=== PATIENT | male | born 1960 | race Caucasian/White ===

== ENCOUNTER 2021-07-10 08:48 | Emergency (ER) | payer MEDICARE, SELFPAY ==
[2021-07-10] VITALS (8 sets, daily range): BP systolic 132–195; BP diastolic 89–100; PULSE 79–123; RESP 16–20; TEMP 36.6–36.9; O2SAT 94–98; BMI 25.8; BMI 26.6
--- NOTE | 2021-07-10 | ECG_ITS ---
APPROVED REPORT Exam: Resting ECG HR:105 bpm ECG Measurements Heart Rate 105 AXES UT 142 P 78 QRSd 74 QRS 67 QT 332 T 56 QTc 438 Conclusion Sinus tachycardia Otherwise normal ECG Electronically signed by : Vance Briones MD 07/11/2021 17:29:12
--- NOTE | 2021-07-10 08:50 | PC.NURSE ---
blood sugar 237
--- NOTE | 2021-07-10 08:55 | PC.NURSE ---
to ct per stretcher
--- NOTE | 2021-07-10 08:55 | XR_ITS ---
PROCEDURE: XR CHEST PORTABLE CLINICAL HISTORY: weakness COMPARISON: No exams were available for comparison FINDINGS: The cardiomediastinal silhouette and pulmonary vascularity are within normal limits. Hyperinflation suggesting small airway disease/COPD. No consolidation or nodules apparent. No acute bony abnormalities. IMPRESSION: Hyperinflation suggesting COPD or small airway disease otherwise negative Dictated by: Sergio Diaz MD 07/10/2021 11:53 Sergio Diaz MD in [facility] 07/10/2021 11:53
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
--- NOTE | 2021-07-10 08:55 | HMH.EDGENADL ---
ED Disposition Clinical Impression: TIA (transient ischemic attack) Hypertension Qualifiers: Hypertension type: unspecified Qualified Code(s): I10 - Essential (primary) hypertension Disposition: Home, Self-Care Condition on Discharge: Fair Additional Instructions: See Dr. Ray for Dr. Lake in their office tomorrow, , or Friday. Follow-up with Dr. Ortiz, neurologist, call for appointment. Take aspirin 81 mg daily. Take lisinopril 10 mg daily for blood pressure as prescribed. Return to the emergency department if symptoms of numbness return or if new symptoms such as weakness, visual changes, difficulty speaking, severe dizziness. Prescriptions: lisinopriL [Lisinopril] 10 mg PO DAILY #30 tab Prescription Printed Referrals: Terence Ray MD [Staff Physician] - Carol Ortiz MD [Staff Physician] - - Critical Care Critical Care Time: No Attestation: On , the high probability of a clinically significant, sudden or life threatening deterioration of the following system(s) required my full and direct attention, intervention and personal management. The time I documented below is in addition to time spent performing reported procedures but includes the following listed in this critical care notation. Medical Decision Making - Bernardo Inquiry Pt receiving controlled substance: Yes Bernardo was queried for this patient: Yes Risks and benefits of using a controlled substance: were not discussed with pt by me Vital Signs: 07/10/21 08:52 07/10/21 10:56 07/10/21 11:33 Temperature 98.5 F Temperature Source Oral Pulse Rate 82 81 Pulse Rate [Radial] 123 H Respiratory Rate 18 16 20 Blood Pressure 156/99 H 152/97 H Blood Pressure [Right Arm] 195/97 H Blood Pressure Mean [Right Arm] 129 Blood Pressure Source Automatic Cuff Blood Pressure Position Sitting Blood Pressure Position [Right Arm] Sitting 02 Sat by Pulse Oximetry 98 95 95 Oxygen Delivery Method Room Air Room Air Room Air - Lab Data Lab Results 07/10/21 08:53: WBC 9.4, RBC 4.92, Hgb 15.2, Hct 47.2, MCV 95.8 H, MCH 30.9, MCHC 32.3, RDW 13.0, Plt Count 239, MPV 8.5, Neut % (Auto) 64.4, Lymph % (Auto) 27.7, Jennings % (Auto) 4.1, Eos % (Auto) 3.2, Baso % (Auto) 0.6, Neut # (Auto) 6.0, Lymph # (Auto) 2.6, Jennings # (Auto) 0.4, Eos # (Auto) 0.3, Baso # (Auto) 0.1 07/10/21 08:53: Sodium 135 L, Potassium 3.9, Chloride 96 L, Carbon Dioxide 29, Anion Gap 13.9, BUN 19, Creatinine 1.10, Estimated Creat Clear 77, Estimated GFR 68, Est GFR ( Amer) 82, Glucose 151 H, Calcium 9.9, Total Bilirubin 0.6, AST 23, ALT 12, Alkaline Phosphatase 90, Troponin I < 0.01, Total Protein 8.4 H, Albumin 4.6, Globulin 3.8 H, Albumin/Globulin Ratio 1.2 07/10/21 08:53: PT 11.3, INR 1.00 07/10/21 11:54: Troponin I < 0.01 07/10/21 11:55: Urine Opiates Screen Negative, Urine Methadone Screen Negative, Ur Barbituates Screen Negative, Ur Phencyclidine Scrn Negative, Ur Amphetamines Screen Negative, U Benzodiazepines Scrn Negative, Urine Cocaine Screen Negative, U Marijuana (THC) Screen Positive H Result diagrams: 07/10/21 08:53 07/10/21 08:53 Orders (Tests/Meds): ED MEDICATIONS Generic Name Dose Route Start Last Admin Trade Name Freq PRN Reason Stop Dose Admin Sodium Chloride 10 ml 07/10/21 09:50 Sodium Chloride 0.9% 10ml Vial IV 08/09/21 09:49 NEEDED PRN to Dilute Lorazepam inj Discontinued Medications Generic Name Dose Route Start Last Admin Trade Name Freq PRN Reason Stop Dose Admin Aspirin 324 mg 07/10/21 11:59 07/10/21 12:08 Aspirin 81mg Chewable Tablet PO 07/10/21 12:00 324 mg ONCE ONE Administration Iopamidol 90 ml 07/10/21 10:16 07/10/21 10:17 Iopamidol-370 (76%);100ml Bottle IV 07/10/21 10:17 90 ml ONCE ONE Administration Lisinopril 10 mg 07/10/21 12:19 07/10/21 12:26 Lisinopril 10mg Tablet PO 07/10/21 12:20 10 mg ONCE ONE Administration Lorazepam 1 mg 07/10/21 09:50 07/10/21 0
[2021-07-10 09:03] LABS: Basophils # 0.1 K/mm3 (0-0.2); Basophils % 0.6 % (0.1-2.0); Eosinophils # 0.3 K/mm3 (0.0-0.4); Eosinophils % 3.2 % (0.1-12.0); Hematocrit 47.2 % (42.0-52.0); Hemoglobin 15.2 g/dL (14.1-18.0); Lymphocytes # 2.6 K/mm3 (0.7-4.5); Lymphocytes % 27.7 % (10-50); Mean Corpuscular HGB Conc 32.3 g/dL (31.8-35.4); Mean Corpuscular Hemoglobin 30.9 pg (27.0-31.2); Mean Corpuscular Volume 95.8 fl (80-94); Mean Platelet Volume 8.5 fl (7.4-10.4); Monocytes # 0.4 K/mm3 (0.1-1.0); Monocytes % 4.1 % (1.7-9.3); Neutrophils % 64.4 % (37.0-80.0); Platelet Count 239 K/mm3 (142-424); Red Blood Count 4.92 M/mm3 (4.60-6.20); White Blood Count 9.4 K/mm3 (4.8-10.8)
[2021-07-10 09:11] LABS: Chloride 96 mmol/L (98-107); Sodium 135 mmol/L (136-145)
[2021-07-10 09:12] LABS: Potassium 3.9 mmoL/L (3.5-5.1)
[2021-07-10 09:14] LABS: Alanine Aminotransferase 12 U/L (12-78); Alkaline Phosphatase 90 U/L (38-126); Anion Gap 13.9 mEq/L (5-15); Aspartate Amino Transferase 23 U/L (17-59); Bilirubin,Total 0.6 mg/dl (0.2-1.3); Blood Urea Nitrogen 19 mg/dl (9-20); Carbon Dioxide 29 mmol/L (22.0-30.0); Creatinine Clearance Estimated 77 mL/min (50-200); Estimated Glomerular Filt Rate 68 ml/min (>60); GFR (African American) 82 ML/MIN (>60); Prothrombin Time 11.3 seconds (10.1-12.5)
[2021-07-10 09:15] LABS: Albumin Level 4.6 g/dl (3.5-5.0); Albumin/Globulin Ratio 1.2 (1.1-1.8); Calcium 9.9 mg/dl (8.4-10.2); Globulin 3.8 g/dL (1.3-3.2); Glucose 151 mg/dl (74-100); Total Protein,Serum 8.4 g/dl (6.3-8.2)
--- NOTE | 2021-07-10 09:21 | CT_ITS ---
PROCEDURE INFORMATION: Exam: CT Angiography Head Without And With Contrast, Arteriography Exam date and time: 07/10/2021 9:21 AM Age: 61 years old Clinical indication: Pain; Other: RT side numbness; Additional info: Right sided numbness TECHNIQUE: Imaging protocol: Computed tomographic angiography of the head without and with contrast. Exam focused on the arteries. 3D rendering (Not supervised by radiologist): MIP and/or 3D reconstructed images were created by the technologist. Radiation optimization: All CT scans at this facility use at least one of these dose optimization techniques: automated exposure control; mA and/or kV adjustment per patient size (includes targeted exams where dose is matched to clinical indication); or iterative reconstruction. Contrast material: ISOVUE 370; Contrast volume: 100 ml; Contrast route: INTRAVENOUS (IV); COMPARISON: CT HEAD/BRAIN WO CON 07/10/2021 8:56 AM FINDINGS: ANTERIOR CIRCULATION: Right internal carotid artery: Intracranial segment is patent with no occlusion. There is likely mild to moderate stenosis of the right cavernous carotid. No aneurysm. Right middle cerebral artery: No occlusion or significant stenosis. No aneurysm. Right anterior cerebral artery: No occlusion or significant stenosis. No aneurysm. Left internal carotid artery: Intracranial segment is patent with no occlusion. There is likely mild to moderate stenosis of the left cavernous carotid. No aneurysm. Left middle cerebral artery: No occlusion or significant stenosis. No aneurysm. Left anterior cerebral artery: No occlusion or significant stenosis. No aneurysm. POSTERIOR CIRCULATION: Right vertebral artery: No occlusion or significant stenosis. No aneurysm. 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 Basilar artery: No occlusion or significant stenosis. No aneurysm. Right posterior cerebral artery: No occlusion or significant stenosis. No aneurysm. Left posterior cerebral artery: No occlusion or significant stenosis. No aneurysm. HEAD: Brain: Unremarkable. No acute intracranial hemorrhage. No significant white matter disease. No edema. Cerebral ventricles: Normal. No ventriculomegaly. Bones/joints: Prior left parietal craniotomy. Paranasal sinuses: Visualized sinuses are normal. No fluid levels. Mastoid air cells: Visualized mastoids are normal. No mastoid effusion. Soft tissues: Unremarkable. IMPRESSION: 1. 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 2. No occlusion or aneurysm involving the anterior circulation
--- NOTE | 2021-07-10 09:21 | CT_ITS ---
PROCEDURE INFORMATION: Exam: CT Angiography Neck With Contrast Exam date and time: 07/10/2021 9:21 AM Age: 61 years old Clinical indication: Pain; Other: RT side numbness; Additional info: Right sided numbness TECHNIQUE: Imaging protocol: Computed tomography angiography of the neck with contrast. 3D rendering (Not supervised by radiologist): MIP and/or 3D reconstructed images were created by the technologist. Radiation optimization: All CT scans at this facility use at least one of these dose optimization techniques: automated exposure control; mA and/or kV adjustment per patient size (includes targeted exams where dose is matched to clinical indication); or iterative reconstruction. Contrast material: ISOVUE 370; Contrast volume: 100 ml; Contrast route: INTRAVENOUS (IV); COMPARISON: CT HEAD/BRAIN WO CON 07/10/2021 8:56 AM FINDINGS: Right common carotid artery: No stenosis. No dissection or occlusion. Right internal carotid artery: No stenosis of the extracranial segment. No dissection or occlusion. Right external carotid artery: No occlusion or stenosis of the origin. Left common carotid artery: No stenosis. No dissection or occlusion. Left internal carotid artery: There is approximately 50% narrowing of the proximal left internal carotid artery. Left external carotid artery: No occlusion or stenosis of the origin. Right vertebral artery: No stenosis. No dissection or occlusion. 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 Left subclavian artery: Mild to moderate narrowing of the proximal left subclavian artery due to calcified and noncalcified atherosclerotic plaque. Soft tissues: Normal. No significant soft tissue swelling. Bones/joints: No acute fracture. Lungs: Moderate centrilobular emphysema in the lungs. IMPRESSION: 1. Moderate stenosis of the proximal left internal carotid artery of approximately 50%. 2. 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 3. Mild to moderate narrowing of the proximal left subclavian artery. REFERENCES: NASCET CRITERIA. The degree of internal carotid artery stenosis is based on NASCET criteria. Normal is no stenosis. Mild is less than 50% stenosis. Moderate is 50-69% stenosis. Severe is 70% to 99% stenosis. Total occlusion is no detectable patent lumen.
[2021-07-10 09:27] LABS: Troponin I < 0.01 ng/ml (0.00-0.034)
--- NOTE | 2021-07-10 09:43 | PC.NURSE ---
pt to ct
[2021-07-10 12:19] LABS: Amphetamine/Metha Screen,Urine Negative ng/ml (<1000); Benzodiazepines Screen,Urine Negative ng/ml (<200)
[2021-07-10 12:20] LABS: Barbiturates Screen,Urine Negative ng/ml (<200); Cannabinoid Screen,Urine Positive ng/ml (<50)
[2021-07-10 12:21] LABS: Cocaine Screen,Urine Negative ng/ml (<300)
[2021-07-10 12:22] LABS: Methadone Screen,Urine Negative ng/ml (<300); Opiate Screen,Urine Negative ng/ml (<300)
[2021-07-10 12:23] LABS: Phencyclidine Screen,Urine Negative ng/ml (<25)
--- NOTE | 2021-07-10 12:28 | PC.NURSE ---
spoke with Dr. Ray
[2021-07-10 12:32] LABS: Troponin I < 0.01 ng/ml (0.00-0.034)
== END 2021-07-10 12:59 | disposition home or self-care (01) ==
PROVIDERS: Emergency Provider Emergency Medicine
DX: G45.8 Other transient cerebral ischemic attacks and related syndromes (principal); I10 Essential (primary) hypertension; F12.10 Cannabis abuse, uncomplicated
CPT/HCPCS: 36415; 70450; 70496; 70498; 71045; 80053; 80305; 84484; 85025; 85610; 93005; 96374; 96375; 99283; J2405; Q9967

== ENCOUNTER 2023-06-03 21:43 | Inpatient (IN) | payer MEDICARE, SELFPAY ==
[2023-06-03 21:47] VITALS: BP 149/88; PULSE 131; RESP 24; TEMP 37.6; O2SAT 95; BMI 26.6
--- NOTE | 2023-06-03 22:02 | XR_ITS ---
PROCEDURE INFORMATION: Exam: XR Chest Exam date and time: 06/03/2023 10:07 PM Age: 63 years old Clinical indication: Cough and shortness of breath; Additional info: SOA, cough TECHNIQUE: Imaging protocol: Radiologic exam of the chest. Views: 1 view. COMPARISON: CR XR CHEST PORTABLE 07/10/2021 9:06 AM FINDINGS: Lungs: Hyperinflation compatible with COPD. Possible subtle asymmetric mixed interstitial and hazy airspace opacities in the lateral right mid lung. Lungs otherwise clear. Pleural spaces: Unremarkable. No pleural effusion. No pneumothorax. Heart/Mediastinum: Unremarkable. No cardiomegaly. Bones/joints: Unremarkable. IMPRESSION: COPD. Possible developing opacities in the lateral right mid lung that may reflect developing pneumonia in the proper clinical setting. Advise short-term follow-up chest x-ray in 3-6 weeks to ensure resolution of this finding.
--- NOTE | 2023-06-03 22:11 | PC.NURSE ---
called resp for breathing tx
[2023-06-03 22:14] LABS: Chloride 90 mmol/L (98-107); Potassium 3.7 mmoL/L (3.5-5.1); Sodium 132 mmol/L (136-145)
[2023-06-03 22:16] LABS: Blood Urea Nitrogen 32 mg/dl (9-20); Creatinine Clearance Estimated 82 mL/min (50-200); Estimated Glomerular Filt Rate 85 ml/min (>60); GFR (African American) 103 ML/MIN (>60)
[2023-06-03 22:17] LABS: Alanine Aminotransferase 34 U/L (12-78); Albumin Level 3.8 g/dl (3.5-5.0); Albumin/Globulin Ratio 1.1 (1.1-1.8); Alkaline Phosphatase 77 U/L (38-126); Anion Gap 12.7 mEq/L (5-15); Aspartate Amino Transferase 33 U/L (17-59); Bilirubin,Total 0.5 mg/dl (0.2-1.3); Carbon Dioxide 33 mmol/L (22.0-30.0); Globulin 3.5 g/dL (1.3-3.2); Glucose 149 mg/dl (74-100); Total Protein,Serum 7.3 g/dl (6.3-8.2)
[2023-06-03 22:41] LABS: Basophils # 0.1 K/mm3 (0-0.2); Basophils % 0.7 % (0.1-2.0); Eosinophils % 0.3 % (0.1-12.0); Hematocrit 42.9 % (42.0-52.0); Hemoglobin 13.7 g/dL (14.1-18.0); Lymphocytes # 0.9 K/mm3 (0.7-4.5); Lymphocytes % 10.5 % (10-50); Mean Corpuscular Hemoglobin 29.6 pg (27.0-31.2); Mean Corpuscular Volume 92.4 fl (80-94); Monocytes % 11.8 % (1.7-9.3); Neutrophils # 6.8 K/mm3 (1.8-7.8); Neutrophils % 76.8 % (37.0-80.0); Platelet Count 284 K/mm3 (142-424); Red Blood Count 4.64 M/mm3 (4.60-6.20); Red Cell Distribution Width 12.6 % (11.5-17.5); White Blood Count 8.9 K/mm3 (4.8-10.8)
[2023-06-03 22:49] LABS: VBG Base Excess 4.5 mmol/L (-2.4-2.3); VBG HCO3 30.5 mmol/L (23-30); VBG Oxygen Saturation 63.6 % (50-70); VBG PCO2 59.3 mmol/L (35-51); VBG PH 7.33 mmol/L (7.31-7.41); VBG PO2 35.2 mmol/L (28-40); VBG Total CO2 32.3 mmol/L (23-27)
--- NOTE | 2023-06-03 23:10 | HMH.EDGENADL ---
Discharge Plan Disposition Patient Disposition: Admitted Condition: Good Clinical Impressions Clinical Impression: Pneumonia, COPD exacerbation Discharge ED Provider: Lidia Delvalle General Adult HPI General Chief complaint: Shortness of Breath/Dyspnea Stated complaint: nausea Time Seen by Provider: 06/03/23 21:54 Mode of Arrival: EMS Source of Information: Patient Limitations: No Limitations Description of Symptoms (Recalled from ER Triage Doc. by RN): 63 yo presents with CC soa accompanied by cough,congestion since last friday. Complains of chills, nausea. No current CP. Slightly dyspneic. Asking for xanax upon arrival, told EMS pilot captain that he had already taken 2 xanax today. History of Present Illness HPI narrative: This patient is a 63-year-old male with a history of TIA, hypertension, and COPD who lives at home with his brother presenting to the emergency department for evaluation of several days of cough, congestion, and shortness of breath. Patient also notes recent break-up with emotional disturbance, for which she is requesting Xanax. His brother at home reports that he has had several days of cough and congestion and that he has not been very well. He has not been eating or drinking much, so he is concerned that he is very dehydrated. EMS noted respiratory distress when they picked up the patient and gave him DuoNeb. They also placed him on nasal cannula for symptomatic improvement. He is on 4 L nasal cannula upon arrival. Patient denies any concerns or complaints otherwise. Related Data Previous Rx's Medication Instructions Recorded lisinopril 10 mg tablet 10 mg PO DAILY #30 tabs 07/10/21 Allergies Allergy/AdvReac Type Severity Reaction Status Date / Time No Known Allergies Allergy Verified 11/05/21 14:15 [facility] Disclaimer: The information contained in this section may have been updated after the patient was seen, as this information can be updated by other users. Social History Smoking Status: Current every day smoker alcohol intake: former substance use type: marijuana current occupational status: disabled Travel in the last 8 weeks: None household members: family housing: house ROS Obtained: Yes All systems reviewed & no additional complaints except as documented Physical Exam General General appearance: alert and cachectic Comment: Thin, frail, chronically ill-appearing Head Head exam: atraumatic and normocephalic Eye Eye exam: Present normal appearance, PERRL and EOMI ENT ENT exam: Present normal exam, normal oropharynx, mucous membranes dry and normal external ear exam Neck Neck exam: Present normal inspection, full ROM and trachea midline; Absent tenderness Chest Chest inspection: Present normal inspection and symmetric chest wall rise; Absent tenderness Respiratory Respiratory exam: Present normal lung sounds bilaterally, wheezes, accessory muscle use and prolonged expiratory phase; Absent respiratory distress or stridor Cardiovascular Cardiovascular exam: Present normal rhythm and tachycardia Abdominal Exam Abdominal exam: Present soft; Absent distention, tenderness or guarding Extremities Exam Extremities exam: Present normal inspection, full ROM and normal capillary refill; Absent tenderness or edema Back Exam Back exam: Present normal inspection and full ROM; Absent tenderness Neurological Exam Neurological exam: Present alert, oriented X3, CN II-XII intact and normal gait; Absent motor sensory deficit Psychiatric Psychiatric exam: Present normal affect and normal mood Skin Skin exam: Present warm and dry Medical Decision Making Medical Records Medical records reviewed: Yes I reviewed the patient's medical records. Bernardo Inquiry Pt receiving controlled substance: No Vital Signs: 06/03/23 21:47 06/04/23 00:04 Temperature 99.7 F H 98.0 F Temperature Source Oral Pulse Rate 71 Pulse Rate [Right Brachial] 131 H Respiratory Rate 24 21
--- NOTE | 2023-06-03 23:18 | PC.NURSE ---
Patient is unset that he has not been admitted yet. Patient is also upset that we are not giving him Xanax. I explained to the patient our current treatment plan.
--- NOTE | 2023-06-03 23:34 | PC.NURSE ---
rounded on pt, no needs at this time.
--- NOTE | 2023-06-03 23:48 | PC.NURSE ---
unable to give report at this time.
--- NOTE | 2023-06-03 23:55 | EXP.HP ---
History of Present Illness *Admission Date: 06/03/23 *Reason for visit:: SOB *History of present illness: This is a 63-year-old male with PMHx of TIA, hypertension, and COPD who lives at home with his brother presenting to the emergency department for evaluation of several days of cough, congestion, and shortness of breath. History is limitted due to patient poor historian and speaking in sentences. History obtained per ED documentation and from his brother who reported that he has had several days of cough and congestion and that he has not been very well. He has not been eating or drinking much, so he is concerned that he is very dehydrated. EMS noted respiratory distress during transportation and gave him DuoNeb also placed him on nasal cannula for improvement. He was on 4 L nasal cannula upon arrival. Admitted for treatment. [facility] Disclaimer: The information contained in this section may have been updated after the patient was seen, as this information can be updated by other users. Medical History (Updated 06/04/23 @ 02:04 by Ramo Atkins APRN) Subdural hematoma Surgical History (Updated 06/04/23 @ 01:07 by Florence Sharp RN) H/O hemorrhoidectomy Hx of brain surgery Social History (Updated 06/04/23 @ 01:07 by Florence Sharp RN) Smoking Status: Current every day smoker alcohol intake: former substance use type: marijuana current occupational status: disabled Travel in the last 8 weeks: None household members: family housing: house Review of Systems Review of Systems Review of systems:: pertinent systems reviewed and negative unless documented below Meds Home Medications and Allergies Home Medications Medication Instructions Recorded Confirmed Type lisinopril 10 mg tablet 10 mg PO DAILY blood pressure 06/04/23 06/04/23 History New Prescriptions to Start Prescriptions: Allergies Allergy/AdvReac Type Severity Reaction Status Date / Time No Known Allergies Allergy Verified 11/05/21 14:15 Exam Data for Last 24 hours Vital signs and Labs for Last 24 Hours: Temp Pulse Resp BP Pulse Ox O2 Del Method 99.7 F H 131 H 24 149/88 H 95 Room Air 06/03/23 21:47 06/03/23 21:47 06/03/23 21:47 06/03/23 21:47 06/03/23 21:47 06/03/23 21:47 Laboratory Results - last 24 hr 06/03/23 21:45: WBC 8.9, RBC 4.64, Hgb 13.7 L, Hct 42.9, MCV 92.4, MCH 29.6, MCHC 32.0, RDW 12.6, Plt Count 284, MPV 9.0, Neut % (Auto) 76.8, Lymph % (Auto) 10.5, Wetzel % (Auto) 11.8 H, Eos % (Auto) 0.3, Baso % (Auto) 0.7, Neut # (Auto) 6.8, Lymph # (Auto) 0.9, Wetzel # (Auto) 1.0, Eos # (Auto) 0.0, Baso # (Auto) 0.1, Sodium 132 L, Potassium 3.7, Chloride 90 L, Carbon Dioxide 33 H, Anion Gap 12.7, BUN 32 H, Creatinine 0.90, Estimated Creat Clear 82, Estimated GFR 85, Est GFR ( Amer) 103, Glucose 149 H, Calcium 9.0, Total Bilirubin 0.5, AST 33, ALT 34, Alkaline Phosphatase 77, Total Protein 7.3, Albumin 3.8, Globulin 3.5 H, Albumin/Globulin Ratio 1.1 06/03/23 22:02: VBG pH 7.33, VBG pCO2 59.3 H, VBG pO2 35.2, VBG HCO3 30.5 H, VBG Total CO2 32.3 H, VBG O2 Saturation 63.6, VBG Base Excess 4.5 H I & O for Last 24 hours: Intake & Output 05/31/23 06/01/23 06/02/23 06/03/23 23:59 23:59 23:59 23:59 Weight 77.111 kg Constitutional Constitutional: moderate distress, cachectic and chronically ill appearing *Routine HEENT Exam Head: Present normocephalic and atraumatic Eye: Present EOMI, PERRL and normal accommodation ENT: Present mucous membranes moist *Routine Neck Exam Neck: Present supple, full ROM and trachea midline *Routine Respiratory Exam Respiratory: Present accessory muscle use, prolonged expiratory phase, wheezes and diminished air movement; Absent able to speak in complete sentences *Routine Cardiovascular Exam Cardiovascular: Present RRR, Normal S1, Normal S2 and tachycardia *Routine Abdominal Exam Abdominal: Present soft and normoactive bowel sounds; Absent organomegaly *Routine Rectal
[2023-06-04] VITALS (10 sets, daily range): BP systolic 95–146; BP diastolic 59–82; PULSE 71–123; RESP 17–21; TEMP 36.7–37.7; O2SAT 90–100; BMI 18.8
--- NOTE | 2023-06-04 00:28 | PC.NURSE ---
pt left department with ari and elroy. all belongings sent up with patient. original packet sent up with patient.
[2023-06-04 00:43] LABS: Lactic Acid 0.9 mmol/L (0.7-2.1)
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
[2023-06-04 07:12] LABS: Basophils % 0.3 % (0.1-2.0); Hematocrit 40.4 % (42.0-52.0); Lymphocytes # 0.6 K/mm3 (0.7-4.5); Lymphocytes % 6.8 % (10-50); Mean Corpuscular HGB Conc 32.1 g/dL (31.8-35.4); Mean Corpuscular Hemoglobin 29.9 pg (27.0-31.2); Mean Corpuscular Volume 93.1 fl (80-94); Mean Platelet Volume 8.2 fl (7.4-10.4); Monocytes # 0.3 K/mm3 (0.1-1.0); Monocytes % 3.1 % (1.7-9.3); Neutrophils # 8.4 K/mm3 (1.8-7.8); Neutrophils % 89.7 % (37.0-80.0); Platelet Count 272 K/mm3 (142-424); Red Blood Count 4.34 M/mm3 (4.60-6.20); Red Cell Distribution Width 12.7 % (11.5-17.5); White Blood Count 9.4 K/mm3 (4.8-10.8)
[2023-06-04 07:16] LABS: Alanine Aminotransferase 32 U/L (12-78); Albumin Level 3.4 g/dl (3.5-5.0); Alkaline Phosphatase 71 U/L (38-126); Anion Gap 14.3 mEq/L (5-15); Aspartate Amino Transferase 31 U/L (17-59); Bilirubin,Total 0.3 mg/dl (0.2-1.3); Blood Urea Nitrogen 26 mg/dl (9-20); Calcium 8.8 mg/dl (8.4-10.2); Carbon Dioxide 30 mmol/L (22.0-30.0); Chloride 92 mmol/L (98-107); Creatinine Clearance Estimated 58 mL/min (50-200); Estimated Glomerular Filt Rate 85 ml/min (>60); GFR (African American) 103 ML/MIN (>60); Globulin 3.4 g/dL (1.3-3.2); Glucose 165 mg/dl (74-100); Magnesium 1.6 mg/dl (1.6-2.3); Potassium 4.3 mmoL/L (3.5-5.1); Sodium 132 mmol/L (136-145); Total Protein,Serum 6.8 g/dl (6.3-8.2)
[2023-06-04 07:17] LABS: MANUAL DIFFERENTIAL MANUAL DIFFERENTIAL (MANUAL DIFF)
--- NOTE | 2023-06-04 07:22 | HMH.PHAINT1 ---
Pharmacy Intervention Comments: Medication history complete, medication list verified with documentation from prior visits. Of note, patient is non compliant with current medication. - Lazara Spivey, PharmD Candidate 2023
[2023-06-04 08:00] LABS: Lymphocytes % 11 % (10-50); Neutrophils % 56 % (42-76); Total Cells Counted 100
[2023-06-04 08:01] LABS: Platelet Estimate Normal; RBC Morphology Normal
--- NOTE | 2023-06-04 09:57 | CT_ITS ---
FINAL REPORT TECHNIQUE: Axial images were obtained from the lung apex to the mid abdomen by computed tomography. Coronal reformatted images were obtained. This study was performed with techniques to keep radiation doses as low as reasonably achievable, (ALARA). Individualized dose reduction techniques using automated exposure control or adjustment of mA and/or kV according to the patient''s size were employed. CLINICAL HISTORY: Shortness of breath, COPD, Abn CXR COMPARISON: None FINDINGS: There is no axillary adenopathy. There are mildly enlarged mediastinal nodes. Heart size is normal. There are severe coronary artery calcifications. There is no pericardial or pleural effusion. There is moderate emphysema. There is are multifocal nodular and groundglass opacities consistent with bilateral pneumonia or mycobacterial/fungal disease. Limited images of the upper abdomen demonstrate no acute findings. IMPRESSION: Multifocal nodular and groundglass opacities consistent with bilateral pneumonia or mycobacterial/fungal disease. Mildly enlarged mediastinal nodes. Reviewed, Interpreted and Dictated by Claudio Alfonso III, MD Transcribed by Angi Hanna Authenticated and [facility][1]
--- NOTE | 2023-06-04 13:42 | PC.NURSE ---
called office and spoke with Dr. Levy about consult
--- NOTE | 2023-06-04 14:12 | EXP.PULM.CON ---
History of Present Illness History of present illness: Ms. Tolbert is a 63-year-old male greater than [id number] smoker who presented to the ER complaining worsening respiratory status with increasing oxygen requirements and pulmonary was called for further evaluation and management [facility] Disclaimer: The information contained in this section may have been updated after the patient was seen, as this information can be updated by other users. Medical History (Updated 06/04/23 @ 15:52 by Tresa Levy MD) Acute respiratory failure with hypoxia Atypical pneumonia Subdural hematoma Surgical History (Updated 06/04/23 @ 01:07 by Florence Sharp, JOE) H/O hemorrhoidectomy Hx of brain surgery Social History (Updated 06/04/23 @ 01:07 by Florence Sharp RN) Smoking Status: Current every day smoker alcohol intake: former substance use type: marijuana current occupational status: disabled Travel in the last 8 weeks: None household members: family housing: house Review of Systems Constitutional Constitutional: Reports anorexia, Reports body ache(s) and Reports fatigue Eyes Eyes: Denies eye discharge, Denies dry eyes, Denies irritation and Denies itchy eyes ENT Ears, Nose, Mouth, and Throat: Denies epistaxis, Denies facial pain, Denies lip swelling and Denies throat swelling *Cardiovascular Cardiovascular: Reports dyspnea and Reports dyspnea on exertion *Respiratory Respiratory: Reports chest congestion, Reports cough, Reports dyspnea, Reports dyspnea on exertion, Reports excessive phlegm production and Reports wheezing *Gastrointestinal Gastrointestinal: Denies abdominal pain, Denies belching and Denies cramping *Musculoskeletal Musculoskeletal: Reports back pain, Reports myalgias and Reports other (No small joint swelling or Pain) Psychiatric Psychiatric: Denies homicidal ideation and Denies suicidal ideation Endocrine Endocrine: Reports fatigue and Denies heat intolerance Hematologic/Lymphatic Hematologic/Lymphatic: Denies easy bleeding and Denies lymphadenopathy Allergic/Immunologic Allergic/Immunologic: Denies itchy eyes, Denies lip swelling, Denies throat swelling and Reports wheezing Pulmonology Exam Inpatient Vital signs and Labs for Last 24 Hours: Temp Pulse Resp BP Pulse Ox O2 Del Method O2 Flow Rate 98.4 F 101 H 17 105/70 L 93 L Room Air 1 06/04/23 11:24 06/04/23 11:24 06/04/23 11:24 06/04/23 11:24 06/04/23 13:37 06/04/23 13:37 06/04/23 11:24 Laboratory Results - last 24 hr 06/03/23 21:45: WBC 8.9, RBC 4.64, Hgb 13.7 L, Hct 42.9, MCV 92.4, MCH 29.6, MCHC 32.0, RDW 12.6, Plt Count 284, MPV 9.0, Neut % (Auto) 76.8, Lymph % (Auto) 10.5, [place] % (Auto) 11.8 H, Eos % (Auto) 0.3, Baso % (Auto) 0.7, Neut # (Auto) 6.8, Lymph # (Auto) 0.9, [place] # (Auto) 1.0, Eos # (Auto) 0.0, Baso # (Auto) 0.1, Sodium 132 L, Potassium 3.7, Chloride 90 L, Carbon Dioxide 33 H, Anion Gap 12.7, BUN 32 H, Creatinine 0.90, Estimated Creat Clear 82, Estimated GFR 85, Est GFR ( Amer) 103, Glucose 149 H, Calcium 9.0, Total Bilirubin 0.5, AST 33, ALT 34, Alkaline Phosphatase 77, Total Protein 7.3, Albumin 3.8, Globulin 3.5 H, Albumin/Globulin Ratio 1.1 06/03/23 22:02: VBG pH 7.33, VBG pCO2 59.3 H, VBG pO2 35.2, VBG HCO3 30.5 H, VBG Total CO2 32.3 H, VBG O2 Saturation 63.6, VBG Base Excess 4.5 H 06/04/23 00:26: Lactate 0.9 06/04/23 06:32: WBC 9.4, RBC 4.34 L, Hgb 13.0 L, Hct 40.4 L, MCV 93.1, MCH 29.9, MCHC 32.1, RDW 12.7, Plt Count 272, MPV 8.2, Neut % (Auto) 89.7 H, Lymph % (Auto) 6.8 L, [place] % (Auto) 3.1, Eos % (Auto) 0.0 L, Baso % (Auto) 0.3, Neut # (Auto) 8.4 H, Lymph # (Auto) 0.6 L, [place] # (Auto) 0.3, Eos # (Auto) 0.0, Baso # (Auto) 0.0, Total Counted 100, Neutrophils % (Manual) 56, Band Neutrophils % 32.0 H, Lymphocytes % (Manual) 11, Atypical Lymphs % 1.0, Platelet Estimate Normal, RBC Morphology Normal, Sodium 132 L, Potassium 4.3, Chloride 92 L, Carbon Dioxide 30, Anion Gap 14.3, BUN 26 H, Creatinine 0.90, Estimated Creat
--- NOTE | 2023-06-04 15:06 | EXP.PN ---
Subjective *Date: 06/04/23 *Time: 15:06 Interval history: The patient is seen and examined today. I am accompanied by nursing staff. They report that he remains afebrile with stable vital signs and saturating appropriately on room air. His morning labs have been reviewed, discussed and I have personally interpreted his CBC with a white blood cell count of 9.4, hemoglobin 13 platelets 272. His magnesium is 1.6 and is being replaced. His electrolytes identify sodium 132 with a potassium 4.3 BUN 26 and creatinine 0.9. He denies dysphagia or odynophagia. He reports ongoing tobacco and marijuana use. A CT scan of the chest identifies multifocal nodular and groundglass opacities consistent with bilateral pneumonia. Radiologist voices concerns with mycobacterial disease. He has mildly enlarged mediastinal nodes. Exam Data for Last 24 hours Vital signs and Labs for Last 24 Hours: Temp Pulse Resp BP Pulse Ox O2 Del Method O2 Flow Rate 98.4 F 101 H 17 105/70 L 93 L Room Air 1 06/04/23 11:24 06/04/23 11:24 06/04/23 11:24 06/04/23 11:24 06/04/23 13:37 06/04/23 13:37 06/04/23 11:24 Laboratory Results - last 24 hr 06/03/23 21:45: WBC 8.9, RBC 4.64, Hgb 13.7 L, Hct 42.9, MCV 92.4, MCH 29.6, MCHC 32.0, RDW 12.6, Plt Count 284, MPV 9.0, Neut % (Auto) 76.8, Lymph % (Auto) 10.5, [place] % (Auto) 11.8 H, Eos % (Auto) 0.3, Baso % (Auto) 0.7, Neut # (Auto) 6.8, Lymph # (Auto) 0.9, [place] # (Auto) 1.0, Eos # (Auto) 0.0, Baso # (Auto) 0.1, Sodium 132 L, Potassium 3.7, Chloride 90 L, Carbon Dioxide 33 H, Anion Gap 12.7, BUN 32 H, Creatinine 0.90, Estimated Creat Clear 82, Estimated GFR 85, Est GFR ( Amer) 103, Glucose 149 H, Calcium 9.0, Total Bilirubin 0.5, AST 33, ALT 34, Alkaline Phosphatase 77, Total Protein 7.3, Albumin 3.8, Globulin 3.5 H, Albumin/Globulin Ratio 1.1 06/03/23 22:02: VBG pH 7.33, VBG pCO2 59.3 H, VBG pO2 35.2, VBG HCO3 30.5 H, VBG Total CO2 32.3 H, VBG O2 Saturation 63.6, VBG Base Excess 4.5 H 06/04/23 00:26: Lactate 0.9 06/04/23 06:32: WBC 9.4, RBC 4.34 L, Hgb 13.0 L, Hct 40.4 L, MCV 93.1, MCH 29.9, MCHC 32.1, RDW 12.7, Plt Count 272, MPV 8.2, Neut % (Auto) 89.7 H, Lymph % (Auto) 6.8 L, [place] % (Auto) 3.1, Eos % (Auto) 0.0 L, Baso % (Auto) 0.3, Neut # (Auto) 8.4 H, Lymph # (Auto) 0.6 L, [place] # (Auto) 0.3, Eos # (Auto) 0.0, Baso # (Auto) 0.0, Total Counted 100, Neutrophils % (Manual) 56, Band Neutrophils % 32.0 H, Lymphocytes % (Manual) 11, Atypical Lymphs % 1.0, Platelet Estimate Normal, RBC Morphology Normal, Sodium 132 L, Potassium 4.3, Chloride 92 L, Carbon Dioxide 30, Anion Gap 14.3, BUN 26 H, Creatinine 0.90, Estimated Creat Clear 58, Estimated GFR 85, Est GFR ( Amer) 103, Glucose 165 H, Calcium 8.8, Magnesium 1.6, Total Bilirubin 0.3, AST 31, ALT 32, Alkaline Phosphatase 71, Total Protein 6.8, Albumin 3.4 L D, Globulin 3.4 H, Albumin/Globulin Ratio 1.0 L I & O for Last 24 hours: Intake & Output 06/01/23 06/02/23 06/03/23 06/04/23 23:59 23:59 23:59 23:59 Intake Total 1080 / 1080 Output Total 200 / 200 Balance 880 / 880 Weight 77.111 kg 54.544 kg Constitutional Constitutional: no acute distress, thin, chronically ill appearing, disheveled and cooperative *Routine HEENT Exam Head: Present normocephalic *Routine Neck Exam Neck: Present supple and trachea midline *Routine Respiratory Exam Respiratory: Present rhonchi, distant breath sounds, normal respiratory effort and symmetric chest movement *Routine Cardiovascular Exam Cardiovascular: Present Normal S1, Normal S2 and tachycardia *Routine Extremities Exam Extremities: Present full ROM and normal capillary refill *Routine Skin Exam Skin: Present warm *Routine Neurological Exam Neurological: Present alert, oriented X3, moving all extremities, vision grossly intact, hearing grossly intact and normal speech Routine Psychiatric Exam Psychiatric: Present normal affect, normal thought process, cooperative, good insight and good judgment Assessme
[2023-06-04 16:57] LABS: Adenovirus,PCR Not Detected (NotDetected); Bordetella Pertussis Not Detected (NotDetected); Chlamydophila Pneumoniae, PCR Not Detected (NotDetected); Coronavirus 19, PCR Not Detected (NotDetected); Coronavirus 229E Not Detected (NotDetected); Coronavirus NL63 Not Detected (NotDetected); Coronavirus OC43 Not Detected (NotDetected); Coronovirus HKU1,PCR Not Detected (NotDetected); Human Metapneumovirus Not Detected (NotDetected); Influenza A, PCR Not Detected (NotDetected); Influenza AH1, 2009 Not Detected (NotDetected); Influenza AH1, PCR Not Detected (NotDetected); Influenza AH3,PCR Not Detected (NotDetected); Influenza B, PCR Not Detected (NotDetected); Mycoplasma Pneumoniae, PCR Not Detected (NotDetected); Parainfluenza 1, PCR Not Detected (NotDetected); Parainfluenza 2, PCR Not Detected (NotDetected); Parainfluenza 3, PCR Not Detected (NotDetected); Parainfluenza 4, PCR Not Detected (NotDetected); Respiratory Syncytial Virus Not Detected (NotDetected); Rhinovirus/Enterovirus Not Detected (NotDetected)
--- NOTE | 2023-06-04 17:19 | PC.NURSE ---
Pt AxOx4 Pt started this shift on 2L of O2 and is now tolerating RA well with sats at 100%, Pt has walked around the unit outside his room and has been doing quite well, Pt denies pain and seems to rest at times comfortably, Pt states he feels so much better. Pt denies all other needs at this time
[2023-06-05] VITALS (8 sets, daily range): BP systolic 96–119; BP diastolic 59–73; PULSE 84–114; RESP 18–19; TEMP 36.4–37.4; O2SAT 92–99; BMI 21.4
--- NOTE | 2023-06-05 01:58 | PC.NURSE ---
Pt hit call light and was heard yelling aggressively about his iv. Pt demanding IV to be taken out at this time. IV removed. Ramo CLINICAL TRIALS MANAGER called to bedside. Pt very verbally aggressive, yelling at staff. Pt talked to, and calmed down. Took walk in sidhu. Pt instructed on taking deep breaths and relaxation techniques. Pt back to room and agrees to have new IV placed. 20g iv placed in left forearm with pt permission. Ativan given per MAR with pt permission Pt agrees at this time to have IV fluids continued.
[2023-06-05 07:18] LABS: Anion Gap 10.4 mEq/L (5-15); Blood Urea Nitrogen 25 mg/dl (9-20); Calcium 8.4 mg/dl (8.4-10.2); Carbon Dioxide 31 mmol/L (22.0-30.0); Chloride 95 mmol/L (98-107); Creatinine Clearance Estimated 66 mL/min (50-200); Estimated Glomerular Filt Rate 85 ml/min (>60); GFR (African American) 103 ML/MIN (>60); Glucose 97 mg/dl (74-100); Magnesium 1.8 mg/dl (1.6-2.3); Potassium 3.4 mmoL/L (3.5-5.1); Sodium 133 mmol/L (136-145)
--- NOTE | 2023-06-05 13:24 | EXP.PN ---
Subjective *Date: 06/05/23 *Time: 13:24 Interval history: The patient is seen and examined today. I am accompanied by nursing staff. Nursing staff reports that he remains afebrile with stable vital signs and saturating appropriately on room air. Pulmonology has evaluated the patient and fungal serologies and TB QuantiFERON have been requested. His morning labs identify a low potassium, normal creatinine and magnesium 1.8. The patient reports identified improvement. He is inquiring about discharge home. Exam Data for Last 24 hours Vital signs and Labs for Last 24 Hours: Temp Pulse Resp BP Pulse Ox O2 Del Method O2 Flow Rate 98.0 F 84 18 119/68 96 Room Air 2 06/05/23 11:22 06/05/23 11:22 06/05/23 11:22 06/05/23 11:22 06/05/23 11:22 06/05/23 12:36 06/05/23 04:00 Laboratory Results - last 24 hr 06/04/23 16:23: Chlamy pneumoniae PCR Not detected, Adenovirus (PCR) Not detected, B. pertussis DNA (PCR) Not detected, Coronavirus OC43 (PCR) Not detected, Coronavirus HKU1 (PCR) Not detected, Coronavirus 229E (PCR) Not detected, SARS-CoV-2 (PCR) Not detected, Coronavirus NL63 (PCR) Not detected, Human Metapneumovir PCR Not detected, Influenza A (H1) PCR Not detected, Influ A (H1N1/09) PCR Not detected, Influenza A (H3) PCR Not detected, Influenza Type A (PCR) Not detected, Influenza Type B (PCR) Not detected, M. pneumoniae (PCR) Not detected, Parainfluenza 1 (PCR) Not detected, Parainfluenza 2 (PCR) Not detected, Parainfluenza 3 (PCR) Not detected, Parainfluenza 4 (PCR) Not detected, RSV (PCR) Not detected, Entero/Rhino (PCR) Not detected 06/05/23 06:40: Sodium 133 L, Potassium 3.4 L D, Chloride 95 L, Carbon Dioxide 31 H, Anion Gap 10.4, BUN 25 H, Creatinine 0.90, Estimated Creat Clear 66, Estimated GFR 85, Est GFR ( Amer) 103, Glucose 97, Calcium 8.4, Magnesium 1.8 D I & O for Last 24 hours: Intake & Output 09/11/23 09/12/23 09/13/23 09/14/23 23:59 23:59 23:59 23:59 Intake Total 1910 / 1910 240 / 240 Output Total 800 / 1200 700 / 700 Balance 1110 / 710 -460 / -460 Weight 77.111 kg 54.544 kg 61.944 kg Microbiology Reports for the Last 24 Hours: Microbiology 06/04/23 Unknown Sputum - Expectorated Sputum Gram Stain - Final Constitutional Constitutional: no acute distress, thin, chronically ill appearing, disheveled and cooperative *Routine HEENT Exam Head: Present normocephalic *Routine Neck Exam Neck: Present supple and trachea midline *Routine Respiratory Exam Respiratory: Present rhonchi, distant breath sounds, normal respiratory effort and symmetric chest movement *Routine Cardiovascular Exam Cardiovascular: Present Normal S1, Normal S2 and tachycardia *Routine Extremities Exam Extremities: Present full ROM and normal capillary refill *Routine Skin Exam Skin: Present warm *Routine Neurological Exam Neurological: Present alert, oriented X3, moving all extremities, vision grossly intact, hearing grossly intact and normal speech Routine Psychiatric Exam Psychiatric: Present normal affect, normal thought process, cooperative, good insight and good judgment Assessment and Plan *Assessment and plan (1) Pneumonia: Status: Acute Qualifiers: Laterality: right Lung location: middle lobe of lung Pneumonia type: due to unspecified organism Qualified Code(s): J18.9 - Pneumonia, unspecified organism Category: Medical Code(s): J18.9 - Pneumonia, unspecified organism (2) COPD exacerbation: Status: Acute Category: Medical Code(s): J44.1 - Chronic obstructive pulmonary disease with (acute) exacerbation (3) Hyponatremia: Status: Acute Category: Medical Code(s): E87.1 - Hypo-osmolality and hyponatremia (4) Hypertension: Status: Acute Qualifiers: Hypertension type: unspecified Qualified Code(s): I10 - Essential (primary) hypertension Category: Medical Code(s): I10 - Essential (primary)
--- NOTE | 2023-06-05 17:59 | PC.NURSE ---
A&OX4. TOLERATING RA WELL T/O SHIFT. PT HAS CONTINUED TO HAVE PRODUCTIVE COUGH. HAS BEEN STABLE THIS SHIFT, NO OUTBREAKS OR NEED FOR ATIVAN ADMINISTRATION. PT HAS BEEN AMBULATORY IN HALLWAY. NO NEEDS OR C/O NOTED. VSS.
[2023-06-06] VITALS: BP 117/72; PULSE 101; RESP 18; TEMP 36.8; O2SAT 95
[2023-06-06 04:00] VITALS: BP 130/82; PULSE 93; RESP 20; TEMP 37.2; O2SAT 95; BMI 18.6
--- NOTE | 2023-06-06 05:16 | PC.NURSE ---
Ativan given for patient anxiety. VS stable, patient alert and oriented. IV antibiotics given. Patient remained on room air. Lung sounds diminished.
[2023-06-06 06:49] LABS: Basophils # 0.1 K/mm3 (0-0.2); Basophils % 0.5 % (0.1-2.0); Eosinophils # 0.2 K/mm3 (0.0-0.4); Eosinophils % 1.9 % (0.1-12.0); Hematocrit 38.3 % (42.0-52.0); Hemoglobin 12.1 g/dL (14.1-18.0); Lymphocytes # 2.5 K/mm3 (0.7-4.5); Mean Corpuscular HGB Conc 31.7 g/dL (31.8-35.4); Mean Corpuscular Hemoglobin 29.4 pg (27.0-31.2); Mean Corpuscular Volume 92.8 fl (80-94); Mean Platelet Volume 7.9 fl (7.4-10.4); Monocytes # 0.7 K/mm3 (0.1-1.0); Monocytes % 5.7 % (1.7-9.3); Neutrophils % 71.9 % (37.0-80.0); Platelet Count 284 K/mm3 (142-424); Red Blood Count 4.13 M/mm3 (4.60-6.20); Red Cell Distribution Width 12.8 % (11.5-17.5); White Blood Count 12.5 K/mm3 (4.8-10.8)
[2023-06-06 06:55] VITALS: PULSE 92; PULSE 99; O2SAT 92
[2023-06-06 07:03] LABS: Blood Urea Nitrogen 20 mg/dl (9-20); Calcium 8.7 mg/dl (8.4-10.2); Carbon Dioxide 33 mmol/L (22.0-30.0); Chloride 92 mmol/L (98-107); Creatinine Clearance Estimated 58 mL/min (50-200); Estimated Glomerular Filt Rate 85 ml/min (>60); GFR (African American) 103 ML/MIN (>60); Glucose 106 mg/dl (74-100); Sodium 131 mmol/L (136-145)
[2023-06-06 07:52] VITALS: BP 104/52; PULSE 108; RESP 18; TEMP 36.7; O2SAT 95
--- NOTE | 2023-06-06 09:35 | EXP.PHA.PN ---
Subjective *Date: 06/06/23 *Time: 09:35 Medical Exam Vital signs and Labs for Last 24 Hours: Vital Signs Temp Pulse Pulse Resp BP Pulse Ox O2 Del Method 06/06/23 08:25 Room Air 06/06/23 07:52 98.0 F 108 H 18 104/52 L 95 Room Air 06/06/23 06:55 92 H 06/06/23 06:55 99 H 06/06/23 06:55 92 L Room Air 06/06/23 06:29 Room Air 06/06/23 05:00 Room Air 06/06/23 04:00 98.9 F 93 H 20 130/82 95 Room Air 06/06/23 03:00 Room Air 06/06/23 01:04 Room Air 06/06/23 00:00 98.2 F 101 H 18 117/72 95 Room Air 06/05/23 23:00 Room Air 06/05/23 21:00 Room Air 06/05/23 21:08 Room Air 06/05/23 20:00 98.1 F 94 H 19 96/64 L 96 Room Air 06/05/23 18:35 Room Air 06/05/23 17:59 114 H 06/05/23 17:59 107 H 06/05/23 17:00 Room Air 06/05/23 15:00 Room Air 06/05/23 15:31 98.6 F 97 H 18 114/65 99 Room Air 06/05/23 12:36 Room Air 06/05/23 11:22 98.0 F 84 18 119/68 96 Room Air 06/05/23 10:36 Room Air Intake and Output 06/05/23 06/06/23 06/06/23 23:59 07:59 15:59 Intake Total 600 / 1740 1260 / 1260 Output Total 0 / 1300 400 / 400 Balance 600 / 440 860 / 860 Intake: Intake, Oral Amount 600 / 1440 960 / 960 Intake, Total IV Amount 300 / 300 Azithromycin 500 mg In 0.9 % 250 / 250 Sodium Chloride 250 ml @ 250 mls/hr IV Q24H [facility] Rx#:[id number] Ceftriaxone Sodium 1 gm In 0.9 50 / 50 % Sodium Chloride 50 ml @ 100 mls/hr IV Q24H [facility] Rx#:[id number] Output: Output, Urine Amount 0 / 1300 400 / 400 Other: Number of Unmeasured Voids 1 0 Weight 53.977 kg Patient Weight 06/06/23 23:59 Weight 53.977 kg Laboratory Results - last 24 hr 06/06/23 06:07: WBC 12.5 H D, RBC 4.13 L, Hgb 12.1 L, Hct 38.3 L, MCV 92.8, MCH 29.4, MCHC 31.7 L, RDW 12.8, Plt Count 284, MPV 7.9, Neut % (Auto) 71.9, Lymph % (Auto) 20.0, [place] % (Auto) 5.7, Eos % (Auto) 1.9, Baso % (Auto) 0.5, Neut # (Auto) 9.0 H, Lymph # (Auto) 2.5, [place] # (Auto) 0.7, Eos # (Auto) 0.2, Baso # (Auto) 0.1, Sodium 131 L, Potassium 4.0, Chloride 92 L, Carbon Dioxide 33 H, Anion Gap 10.0, BUN 20, Creatinine 0.90, Estimated Creat Clear 58, Estimated GFR 85, Est GFR ( Amer) 103, Glucose 106 H, Calcium 8.7 I & O for Labs for Last 24 Hours: Intake & Output 06/03/23 06/04/23 06/05/23 06/06/23 23:59 23:59 23:59 23:59 Intake Total 1910 / 1910 1440 / 1740 1260 / 1260 Output Total 800 / 1200 1000 / 1300 400 / 400 Balance 1110 / 710 440 / 440 860 / 860 Weight 77.111 kg 54.544 kg 61.944 kg 53.977 kg Microbiology Reports for the Last 24 Hours: Microbiology 06/03/23 22:50 Blood Blood Culture - Preliminary NO GROWTH AFTER 48 HOURS 06/03/23 22:02 Blood Blood Culture - Preliminary NO GROWTH AFTER 48 HOURS The patient's infection will respond to the chosen ABx?: Yes (SPUTUM CULTURE PENDING, WHITE BLOOD CELL COUNT ELEVATED, AFEBRILE) Is the patient receiving the right drug, dose, and route?: Yes Could a more targeted ABx be ordered?: No
--- NOTE | 2023-06-06 09:43 | EXP.PULM.PN ---
Subjective *Date: 06/06/23 *Time: 10:10 Interval history: No acute respiratory vents overnight. Patient with improved respiratory symptoms after initiated on Trelegy inhaler. Pulmonology Exam Inpatient Vital signs and Labs for Last 24 Hours: Temp Pulse Resp BP Pulse Ox O2 Del Method O2 Flow Rate 98.0 F 108 H 18 104/52 L 95 Room Air 2 06/06/23 07:52 06/06/23 07:52 06/06/23 07:52 06/06/23 07:52 06/06/23 07:52 06/06/23 08:25 06/05/23 04:00 Laboratory Results - last 24 hr 06/06/23 06:07: WBC 12.5 H D, RBC 4.13 L, Hgb 12.1 L, Hct 38.3 L, MCV 92.8, MCH 29.4, MCHC 31.7 L, RDW 12.8, Plt Count 284, MPV 7.9, Neut % (Auto) 71.9, Lymph % (Auto) 20.0, [place] % (Auto) 5.7, Eos % (Auto) 1.9, Baso % (Auto) 0.5, Neut # (Auto) 9.0 H, Lymph # (Auto) 2.5, [place] # (Auto) 0.7, Eos # (Auto) 0.2, Baso # (Auto) 0.1, Sodium 131 L, Potassium 4.0, Chloride 92 L, Carbon Dioxide 33 H, Anion Gap 10.0, BUN 20, Creatinine 0.90, Estimated Creat Clear 58, Estimated GFR 85, Est GFR ( Amer) 103, Glucose 106 H, Calcium 8.7 I & O for Labs for Last 24 Hours: Intake & Output 06/03/23 06/04/23 06/05/23 06/06/23 23:59 23:59 23:59 23:59 Intake Total 1910 / 1910 1440 / 1740 1260 / 1260 Output Total 800 / 1200 1000 / 1300 400 / 400 Balance 1110 / 710 440 / 440 860 / 860 Weight 170 lb 120 lb 4 oz 136 lb 9 oz 119 lb Microbiology Reports for the Last 24 Hours: Microbiology 06/03/23 22:50 Blood Blood Culture - Preliminary NO GROWTH AFTER 48 HOURS 06/03/23 22:02 Blood Blood Culture - Preliminary NO GROWTH AFTER 48 HOURS Constitutional: Present no acute distress Head: Present normocephalic and atraumatic ENT: Present normal exam, normal oropharynx and mucous membranes moist Neck: Present normal inspection and full ROM Respiratory: Present able to speak in complete sentences; Absent respiratory distress, wheezes or crackles Cardiac: Present S1/S2, Tachycardia and radial pulses present GI: Present soft and distention; Absent tenderness or guarding Skin: Present intact; Absent cyanosis or jaundice Neuro: Present alert, awake and oriented x 3 Extremities: Present normal inspection; Absent clubbing or cyanosis Psychiatric: Present normal affect and cooperative Assessment and Plan *Assessment and plan (1) Atypical pneumonia: Status: Acute Category: Medical Code(s): J18.9 - Pneumonia, unspecified organism (2) COPD exacerbation: Status: Acute Category: Medical Code(s): J44.1 - Chronic obstructive pulmonary disease with (acute) exacerbation (3) Acute respiratory failure with hypoxia: Status: Acute Category: Medical Code(s): J96.01 - Acute respiratory failure with hypoxia Plan 63-year-old male with reported history of TIA hypertension COPD presented to the ER with several days of cough congestion worsening shortness of breath upon presentation to ED patient appeared to be in respiratory distress needing ablation therapies and oxygen supplementation and was eventually admitted and pulmonary was called for further evaluation and management. Greater than 43-[id number] smoking history. Not using any inhalers or oxygen at baseline CT chest from this admission lower lobe bronchial thickening and bronchiectasis. Bilateral diffuse groundglass opacities with air bronchograms micronodules predominant in bilateral upper lobes. No dense consolidation noted. No recent prior CT chest imaging available for comparison. Significant emphysematous changes noted. Afebrile. No evidence of worsening leukocytosis. VBG from admission did not show any evidence of hypoxic respiratory failure. Mild compensated hypercarbia noted. Interval update: Slight worsening leukocytosis. Complains respiratory viral PCR panel negative. Sputum culture gram-positive cocci pending final cultures. AFB stain and cultures negative. TB QuantiFERON serum fungal serologies pendi
--- NOTE | 2023-06-06 11:09 | EXP.DC.SUM ---
General Admission date:: 06/04/23 Discharge date: 06/06/23 HPI HPI HPI: This is a 63-year-old male with PMHx of TIA, hypertension, and COPD who lives at home with his brother presenting to the emergency department for evaluation of several days of cough, congestion, and shortness of breath. History is limitted due to patient poor historian and speaking in sentences. History obtained per ED documentation and from his brother who reported that he has had several days of cough and congestion and that he has not been very well. He has not been eating or drinking much, so he is concerned that he is very dehydrated. EMS noted respiratory distress during transportation and gave him DuoNeb also placed him on nasal cannula for improvement. He was on 4 L nasal cannula upon arrival. Admitted for treatment. Hospital Course Hospital Course Hospital Course: The patient was admitted to the medical floor with telemetry monitoring and pulmonology consultation. Imaging, labs and inflammatory markers were trended. Problems addressed as follows: Acute respiratory failure with hypoxia and hypercapnia Tobacco dependence Pulse oximetry monitoring Oxygen therapy to maintain appropriate oxygen saturations Currently oxygenating on room air on day of discharge Jennifer/Rashad inhalation therapy Trelegy inhaler therapy for discharge ED chest x-ray with hyperinflation compatible with COPD and some subtle interstitial, hazy airspace opacities RML CT chest with multifocal nodular and groundglass opacities consistent with bilateral pneumonia and concerns for fungal disease Trending labs and inflammatory markers Pulmonology consult reviewed Fungal labs ordered QuantiFERON gold TB evaluation ordered Tobacco dependence education Nicotine replacement therapy Multifocal pneumonia Patient denies dysphagia or odynophagia Oxygen therapy Inhalation therapy Respiratory PCR negative PPI therapy IV ceftriaxone therapy DC'd IV azithromycin therapy DC'd IV Levaquin 750 mg daily transition to p.o. for 3 days Trending labs and inflammatory markers Blood cultures no growth to date Sputum cultures no growth to date Hyponatremia Trending electrolytes and creatinine Urine Legionella antigen Hypertension Routine blood pressure monitoring MEDARDO inhibitor therapy Marijuana dependence Smoking cessation education Benzodiazepine therapy The patient identified improvement and was saturating appropriately on room air with appropriate ambulatory ability. With his improvement and inquired about discharge home. Pulmonology regional sales consultant recommended tobacco marijuana use cessation with Trelegy inhaler therapy. He will complete 3 days of Levaquin 750 mg p.o. daily. A follow-up appointment has been scheduled with pulmonology. I spent 35 minutes in [id number] time with the patient and nursing staff concerning the discharge process. We discussed the admitting diagnoses and hospital course. We discussed identified improvement and the patient's desire to be discharged. We reviewed inpatient studies and imaging. The patient voiced understanding on the importance of follow-up with his primary care provider and affirmative action officer. The patient plans to be compliant with the medication regimen prescribed and follow-up appointments. He understands that he can return to the emergency department with any sudden changes or concerns. Exam Data for Last 24 hours Vital signs and Labs for Last 24 Hours: Temp Pulse Resp BP Pulse Ox O2 Del Method O2 Flow Rate 98.0 F 108 H 18 104/52 L 95 Room Air 2 06/06/23 07:52 06/06/23 07:52 06/06/23 07:52 06/06/23 07:52 06/06/23 07:52 06/06/23 08:25 06/05/23 04:00 Laboratory Results - last 24 hr 06/06/23 06:07: WBC 12.5 H D, RBC 4.13 L, Hgb 12.1 L, Hct 38.3 L, MCV 92.8, MCH 29.4, MCHC 31.7 L, RDW 12.8, Plt Count 284, MPV 7.9, Neut % (Auto) 71.9, Lymph % (Auto) 20.0, [place] % (Auto) 5.7, Eos % (Auto) 1.9, Baso % (Auto) 0.5, Neut # (Auto) 9.0 H, Lymph
--- NOTE | 2023-06-06 11:34 | HMH.PHAINT1 ---
Pharmacy Intervention Comments: DISCHARGE MEDICATION COUNSELING PROVIDED. DISCUSSED THE FOLLOWING NEW MEDICATIONS -CHLORDIAZEPOXIDE (FOR ANXIETY, THREE TIMES DAILY NEEDED, DIZZINESS, SEDATION POSSIBLE) -LEVAQUIN (ANTIBIOTIC, DAILY, TAKE WITH FOOD, N/V/D POSSIBLE) -TRELEGY (INHALER FOR COPD, DAILY, RINSE MOUTH AFTER USE TO AVOID THRUSH, FAIRLY WELL TOLERATED) PATIENT VERBALIZED NO QUESTIONS AT THIS TIME.
[2023-06-06 15:33] LABS: Procalcitonin 0.07 ng/mL (0.0-2.0)
[2023-06-06 23:56] LABS: QuantiFERON-TB Gold Plus Negative (Negative)
[2023-06-09 00:06] LABS: Aspergillus flavus Negative (Neg:<1:1); Aspergillus fumigatus Negative (Neg:<1:1); Aspergillus niger Negative (Neg:<1:1); Blastomyces Antibody Negative (Neg:<1:1)
--- NOTE | 2023-06-10 15:38 | CARE MANAGER ---
Called patient to discuss recent discharge. Patient was at appt with PCP at time of call, so I spoke with patient's brother. He stated patient is doing ok. 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 Johnson, medication was only prescribed for 4 days to get him through until f/u appt with PCP. I explained that patient should discuss this medication with his PCP while at his appt today. No other concerns at time of call.
[2023-06-11 09:15] LABS: Legionella pneumophila Urinary Negative (Negative)
== END 2023-06-06 11:51 | disposition home or self-care (01) | DRG 193 ==
LOC: ER 23:27 → 2ND 23:40
PROVIDERS: Family Medicine; Internal Medicine Pulmonary Disease; Nurse Practitioner Family; Admitting Provider Internal Medicine Adolescent Medicine; Emergency Provider Emergency Medicine; Visit Provider Internal Medicine Adolescent Medicine
DX: J18.9 Pneumonia, unspecified organism (principal); J96.01 Acute respiratory failure with hypoxia; E87.1 Hypo-osmolality and hyponatremia; J44.1 Chronic obstructive pulmonary disease with (acute) exacerbation; J44.0 Chronic obstructive pulmonary disease with (acute) lower respiratory infection; I10 Essential (primary) hypertension; F17.200 Nicotine dependence, unspecified, uncomplicated; F12.10 Cannabis abuse, uncomplicated; Z86.73 Personal history of transient ischemic attack (TIA), and cerebral infarction without residual deficits
CPT/HCPCS: 36415; 71045; 71250; 80048; 80053; 82803; 83605; 83735; 84145; 85007; 85025; 86480; 86606; 86612; 87040; 87070; 87081; 87116; 87186; 87205; 87206; 87581; 87632; 87798; 94640; 99291; J0456; J0696; J3475

== ENCOUNTER → 2023-06-11 13:33 | Outpatient (CLI) | payer MEDICARE, SELFPAY ==
[2023-06-10 16:23] LABS: Basophils % 0.3 % (0.1-2.0); Eosinophils # 0.1 K/mm3 (0.0-0.4); Eosinophils % 0.8 % (0.1-12.0); Hematocrit 41.9 % (42.0-52.0); Hemoglobin 13.5 g/dL (14.1-18.0); Lymphocytes # 1.8 K/mm3 (0.7-4.5); Lymphocytes % 13.5 % (10-50); Mean Corpuscular HGB Conc 32.3 g/dL (31.8-35.4); Mean Corpuscular Hemoglobin 29.9 pg (27.0-31.2); Mean Corpuscular Volume 92.5 fl (80-94); Mean Platelet Volume 8.7 fl (7.4-10.4); Monocytes # 0.7 K/mm3 (0.1-1.0); Monocytes % 5.6 % (1.7-9.3); Neutrophils # 10.5 K/mm3 (1.8-7.8); Platelet Count 364 K/mm3 (142-424); Red Blood Count 4.53 M/mm3 (4.60-6.20); Red Cell Distribution Width 12.8 % (11.5-17.5); White Blood Count 13.2 K/mm3 (4.8-10.8)
[2023-06-10 16:44] LABS: Alanine Aminotransferase 28 U/L (12-78); Albumin Level 4.1 g/dl (3.5-5.0); Albumin/Globulin Ratio 1.2 (1.1-1.8); Alkaline Phosphatase 73 U/L (38-126); Anion Gap 16.1 mEq/L (5-15); Aspartate Amino Transferase 32 U/L (17-59); Bilirubin,Total 0.4 mg/dl (0.2-1.3); Blood Urea Nitrogen 28 mg/dl (9-20); Calcium 9.8 mg/dl (8.4-10.2); Carbon Dioxide 29 mmol/L (22.0-30.0); Chloride 88 mmol/L (98-107); Chol/HDL Ratio 3.4 (1-3.5); Cholesterol 183 mg/dl (140-200); Estimated Glomerular Filt Rate 61 ml/min (>60); GFR (African American) 74 ML/MIN (>60); Globulin 3.5 g/dL (1.3-3.2); Glucose 103 mg/dl (74-100); HDL Cholesterol 54 mg/dl (40-60); Potassium 5.1 mmoL/L (3.5-5.1); Sodium 128 mmol/L (136-145); Total Protein,Serum 7.6 g/dl (6.3-8.2); Triglycerides 95 mg/dl (30-150); VLDL Cholesterol 19 mg/dL (0-40)
[2023-06-10 16:54] LABS: 25-OH Vitamin D, Total 42.4 ng/mL (30-100)
[2023-06-10 16:55] LABS: Direct LDL Cholesterol 91.01 mg/dL (100-129)
[2023-06-10 16:59] LABS: Free T4 (Free Thyroxine) 1.74 ng/dl (0.78-2.19)
[2023-06-10 17:15] LABS: Thyroid Stimulating Hormone 2.76 uIU/mL (0.465-4.68)
[2023-06-10 18:16] LABS: Amphetamine/Metha Screen,Urine Negative ng/ml (<1000)
[2023-06-10 18:17] LABS: Barbiturates Screen,Urine Negative ng/ml (<200); Benzodiazepines Screen,Urine Negative ng/ml (<200)
[2023-06-10 18:18] LABS: Cannabinoid Screen,Urine Positive ng/ml (<50)
[2023-06-10 18:19] LABS: Cocaine Screen,Urine Negative ng/ml (<300); Methadone Screen,Urine Negative ng/ml (<300)
[2023-06-10 18:20] LABS: Opiate Screen,Urine Negative ng/ml (<300); Phencyclidine Screen,Urine Negative ng/ml (<25)
[2023-06-13 08:36] LABS: Sodium, Urine 52 mmol/L (Not Estab.)
[2023-06-14 20:08] LABS: Osmolality, Urine 617 mOsmol/kg (.)
== END ==
PROVIDERS: PCP Internal Medicine; Visit Provider Internal Medicine
DX: E87.1 Hypo-osmolality and hyponatremia; Z13.29 Encounter for screening for other suspected endocrine disorder; I10 Essential (primary) hypertension; Z13.220 Encounter for screening for lipoid disorders; E55.9 Vitamin D deficiency, unspecified; R41.82 Altered mental status, unspecified; Z00.00 Encounter for general adult medical examination without abnormal findings; Z11.4 Encounter for screening for human immunodeficiency virus [HIV]; Z11.59 Encounter for screening for other viral diseases; Z91.89 Other specified personal risk factors, not elsewhere classified; Z68.1 Body mass index [BMI] 19.9 or less, adult; Z72.0 Tobacco use
CPT/HCPCS: 80053; 80061; 80305; 82306; 83930; 83935; 84300; 84439; 84443; 85025

== ENCOUNTER 2024-11-13 13:30 | Inpatient (IN) | payer MEDICARE, SELFPAY ==
[2024-11-13 13:35] VITALS: BP 155/93; PULSE 103; RESP 20; TEMP 37.1; O2SAT 94; BMI 18.8
[2024-11-13 13:48] VITALS: BMI 21.9
--- NOTE | 2024-11-13 13:50 | ECG_ITS ---
APPROVED REPORT Exam: Resting ECG HR:97 bpm ECG Measurements Heart Rate 97 AXES AK 147 P 88 QRSd 88 QRS 75 QT 326 T 60 QTc 380 Conclusion SINUS RHYTHM NORMAL ECG UNCONFIRMED REPORT Electronically signed by : Vance Briones MD 11/13/2024 19:55:31
--- NOTE | 2024-11-13 13:57 | EXP.HP ---
History of Present Illness *Admission Date: 11/13/24 *Reason for visit:: Short breath, NSTEMI *History of present illness: Mr. Tolbert is a 64-year-old male who presented to [facility] with shortness of breath, headache, mild chest discomfort. Concern for migraine headache. Initial labs showed detectable troponin. Delta showed change. Findings concerning for NSTEMI. Also concern for COPD exacerbation/bronchitis. Medicine and cardiology were consulted for transfer for cardiology eval given patient's risk factors, tobacco use history, emphysema, and positive troponin delta. Excepted in transfer for further management. On arrival to [facility], patient states he still feels a little short of breath. Has had a mildly productive cough. Is satting in the mid 90s on room air. No nausea or vomiting. Still has mild headache behind his eyes but doing better since receiving medication at [facility]. Received aspirin, Lovenox, morphine, Nitropaste. EKG obtained on arrival shows no ST changes. Normal sinus rhythm. Admitted for telemetry and cards eval. Heart score 5. Risk of Mace 12 to 16%. Necessitating admission and further workup. 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 Has had PTSD and anxiety since. Extensive smoking history with over [id number] history. Emphysema. Daily marijuana use. [facility] Disclaimer: The information contained in this section may have been updated after the patient was seen, as this information can be updated by other users. Medical History Migraine Depression TBI (traumatic brain injury) Multiple lung nodules on CT Smoking greater than 30 pack years Pulmonary emphysema Dyspnea on exertion Acute respiratory failure with hypoxia Atypical pneumonia Subdural hematoma Surgical History H/O hemorrhoidectomy Hx of brain surgery Family History Mother Alzheimer's dementia Father Coronary artery disease Heart attack Brother Heart attack Son Overdose Social History Smoking Status: Current every day smoker alcohol intake: former substance use type: marijuana current occupational status: disabled Travel in the last 8 weeks: None household members: family housing: house Have you lived/traveled outside US in past 30 days?: No Contact w/someone who lives/traveled outside US past 30 days?: No Exposure to someone with infectious disease in past 14 days?: No Do you have a fever (greater than 100.4 F or 38 C)?: No Have you tested positive for COVID-19: No Exposed to someone with COVID-19 in past 14 days?: No Do you have a sore throat?: No Do you have a cough?: No Do you have any weakness?: No Are you experiencing any nausea/vomitting?: No Do you have any diarrhea?: No Are you experiencing any unusual bleeding?: No Do you have any muscle aches/pain?: No Do you have any abdominal pain?: No Are you experiencing loss of taste or smell?: No Other Medical History Have you received the Flu Vaccine for this season: No Have you received the Pneumonia Vaccine: No Review of Systems Review of Systems Review of systems (narrative): 14 point review of systems performed, pertinent positives and negatives as per HPI Meds Home Medications and Allergies Home Medications ?Medication ?Instructions ?Recorded ?Confirmed ?Type No Known Home Medications 04/28/24 11/13/24 History New Prescriptions to Start Prescriptions: Allergies Allergy/AdvReac Type Severity Reaction Status Date / Time No Known Allergies Allergy Verified 04/28/24 13:40 Exam Data for Last 24 hours Vital signs and Labs for Last 24 Hours: Temp Pulse Resp BP Pulse Ox O2 Del Method 98.7 F 103 H 20 155/93 H 94 L Room Air 11/13/24 13:35 11/13/24 13:35 11/13/24 13:35 11/13/24 13:35 11/13/24 13:35 11/13/24 13:35 I & O for Last 24 hours: Intake & Output 11/10/24 11/11/24 11/12/24 11/13/24 23:59 23:59 23:59 23:59 Weight 63.701 kg Constitutional Constitutional: mild distress, cachectic, chronically ill appearing and cooperative *Routine HEENT Exam Head: Present normocephalic and atraumatic Eye: Present EOMI, PERRL and normal accommodation ENT: Present mucous membranes moist *Routine Neck Exam Neck: Present supple, full ROM and trachea midline *Routine Respiratory Exam Respiratory: Present prolonged expiratory phase, wheezes and able to speak in complete sentences; Absent accessory muscle use, rhonchi or crackles *Routine Cardiovascular Exam Cardiovascular: Present RRR, Normal S1 and Normal S2 *Routine Abdominal Exam Abdominal: Present soft and normoactive bowel sounds; Absent organomegaly *Routine Rectal Exam Rectal:: other *Routine Genitalia Exam Genitalia:: other *Routine Extremities Exam Extremities: Present clubbing, full ROM, pulses intact and normal capillary refill; Absent cyanosis *Routine Skin Exam Skin: Present intact, dry and warm; Absent rash *Routine Neurological Exam Neurological: Present alert, oriented X3, moving all extremities, normal tone and normal speech Routine Psychiatric Exam Psychiatric: Present cooperative and anxious Assessment and Plan *Assessment and plan (1) Anxiety: Status: Acute Category: Medical Code(s): F41.9 - Anxiety disorder, unspecified (2) COPD (chronic obstructive pulmonary disease): Status: Acute Category: Medical Code(s): J44.9 - Chronic obstructive pulmonary disease, unspecified (3) Bronchitis: Status: Acute Category: Medical Code(s): J40 - Bronchitis, not specified as acute or chronic (4) NSTEMI (non-ST elevated myocardial infarction): Status: Acute Category: Medical Code(s): I21.4 - Non-ST elevation (NSTEMI) myocardial infarction (5) DORIAN (acute kidney injury): Status: Acute Category: Medical Code(s): N17.9 - Acute kidney failure, unspecified (6) Smoking greater than 30 pack years: Status: Acute Category: Social Hx Code(s): F17.210 - Nicotine dependence, cigarettes, uncomplicated Plan 64-year-old male with extensive smoking history and previous TBI at the age of 17. Presents with shortness of breath and concern for migraine. Found to have mild elevation in troponins with a delta change. Kidney function abnormal concerning for DORIAN. In light of elevated heart score of 5, necessitated transfer for cardiology eval. Discussed case with ER physician at [facility] as well as cardiology. I agreed to accept patient in transfer for admission. Admitted for telemetry and serial labs and cardiology evaluation. Hemodynamically stable at this time on room air. Problems addressed as follows NSTEMI -Patient has detectable troponin of 0.3 on our labs at arrival. High-sensitivity troponin at outside hospital with initial troponin of 264, second troponin 327. BNP was elevated to 26. -Loaded with aspirin at outside hospital and given 1 mg/kg Lovenox x 1 -Nitropaste placed on his chest. Pain more or less resolved by the time of arrival to [facility]. -Continue Lovenox 1 mg/kg twice daily, initiate aspirin 81 mg daily and Plavix 75 mg daily. Monitor on telemetry. -EKG obtained on arrival, per my review is normal sinus rhythm with no ischemic changes. -A1c normal at 5.7 per outside hospital records COPD Bronchitis -Per review of chest x-ray from outside hospital, has parabronchial cuffing, concern for bronchitis with increased sputum production. Initiate Levaquin 750 mg daily for 5 days - DuoNebs every 6 hours scheduled -Respiratory panel pending; negative for COVID and flu at outside hospital Migraines: Ubrelvy 100 mg daily as needed DORIAN: Creatinine 1.6 with BUN 22 at outside hospital. Received 1 L IV fluids. Baseline creatinine 1-1.2. Will repeat CBC, CMP, magnesium in the morning. -No further IV fluids at this time as patient is tolerating p.o. intake. -Caution with nephrotoxic Tobacco use disorder: Nicotine patch 21 mg daily as needed Full code Cardiac diet Lovenox
[2024-11-13 14:00] VITALS: PULSE 101; PULSE 99; O2SAT 94
--- NOTE | 2024-11-13 14:29 | HMH.PHAINT1 ---
Pharmacy Intervention Comments: MEDICATION RECONCILIATION COMPLETE USING EXTERNAL PHARMACY FILL HISTORY, REJI REPORT, AND MD OFFICE VISIT NOTE FROM 04/2024. PATIENT HAS NOT FILLED ANYTHING SINCE 01/2024, NOTHING ON THE REJI REPORT, AND PER MD OFFICE VISIT NOTE FROM 05/15 PATIENT WAS DISMISSED FROM THEIR PRACTICE.
[2024-11-13] MEDS: ACETAMINOPHEN 325MG TAB 650 MG PO (14:35)
[2024-11-13] MEDS: LEVOFLOXACIN/D5W 750 MG/150 ML 750 MG/150 ML PIGGYBACK 100 MG IV (14:43)
[2024-11-13] MEDS: ALPRAZolam 0.25MG TABLET 0.25 MG PO (14:48)
[2024-11-13] MEDS: UBROGEPANT 50MG TABLET 100 MG PO (15:00)
[2024-11-13 15:02] LABS: Troponin I 0.35 ng/ml (0.00-0.034)
[2024-11-13 15:09] LABS: Adenovirus,PCR Not Detected (NotDetected); Bordetella Pertussis Not Detected (NotDetected); Chlamydophila Pneumoniae, PCR Not Detected (NotDetected); Coronavirus 19, PCR Not Detected (NotDetected); Coronavirus 229E Not Detected (NotDetected); Coronavirus NL63 Not Detected (NotDetected); Coronavirus OC43 Not Detected (NotDetected); Coronovirus HKU1,PCR Not Detected (NotDetected); Human Metapneumovirus Not Detected (NotDetected); Influenza A, PCR Not Detected (NotDetected); Influenza AH1, PCR Not Detected (NotDetected); Influenza AH3,PCR Not Detected (NotDetected); Influenza B, PCR Not Detected (NotDetected); Mycoplasma Pneumoniae, PCR Not Detected (NotDetected); Parainfluenza 1, PCR Not Detected (NotDetected); Parainfluenza 2, PCR Not Detected (NotDetected); Parainfluenza 3, PCR Not Detected (NotDetected); Parainfluenza 4, PCR Not Detected (NotDetected); Respiratory Syncytial Virus Not Detected (NotDetected); Rhinovirus/Enterovirus Not Detected (NotDetected)
--- NOTE | 2024-11-13 15:18 | PC.NURSE ---
Pt A&O x4. Denies any CP or soa but c/o a headache. Medicated with tylenol and ubrelvy and ice pack. Shades in room pulled down. Pt is currently watching tv. Labs reported to . Monitoring VS. Pt is tachycardic at times. Call light within reach.
[2024-11-13 15:44] VITALS: BP 124/78; PULSE 100; RESP 18; TEMP 37.4; O2SAT 95
[2024-11-13 16:00] VITALS: PULSE 100
[2024-11-13 16:47] LABS: Influenza AH1, 2009 Detected (NotDetected)
[2024-11-13 18:24] LABS: Troponin I 0.34 ng/ml (0.00-0.034)
[2024-11-13 20:00] VITALS: BP 133/90; PULSE 100; PULSE 92; RESP 16; TEMP 36.8; O2SAT 97
[2024-11-13 20:37] LABS: Troponin I 0.35 ng/ml (0.00-0.034)
[2024-11-13] MEDS: OSELTAMIVIR 75MG CAPSULE 75 MG PO (21:07)
[2024-11-13] MEDS: ENOXAPARIN 80MG/0.8ML SYRINGE 65 MG SUBCUT (21:07)
[2024-11-13] MEDS: SODIUM CHLORIDE 0.9% 25ML BAG 25 ML IV (21:09)
[2024-11-13] MEDS: PROMETHAZINE HCL 25MG/ML 1ML VIAL 25 MG IV (21:09)
[2024-11-13] MEDS: HYDROCODONE/APAP 5/325 MG TABLET 1 TAB PO (22:24)
[2024-11-13 23:17] VITALS: PULSE 81; PULSE 87
[2024-11-13] MEDS: IPRATROPIUM/ALBUTEROL 3 ML NEB IH (23:17)
[2024-11-14] VITALS (13 sets, daily range): BP systolic 115–143; BP diastolic 60–99; PULSE 88–127; RESP 16–18; TEMP 37.1–37.9; O2SAT 94–97; BMI 18.8
--- NOTE | 2024-11-14 00:06 | PC.NURSE ---
Pt c/o of increasing nausea, pain in eyes, no evidence of vomiting. Provider notified, no new orders.
[2024-11-14] MEDS: ACETAMINOPHEN 325MG TAB 650 MG PO ×2 (01:37→17:29)
--- NOTE | 2024-11-14 05:50 | PC.NURSE ---
Provider notified of critical trop lab of 0.35. Pt's temp went up to 100.0, Tylenol administered. Pt remains in precautions for influenza A. Pt c/o of MARQUEZ and pain behind his eyeballs, provider notified, see MAR orders. Pt stated he needs Xanax for his pain as this is what helps him at home. Provider notified and pt was educated on durations of medication administration for this med based on his MAR. V/s, ox4. Plan of care ongoing.
[2024-11-14] MEDS: IPRATROPIUM/ALBUTEROL 3 ML NEB IH ×4 (06:03→23:12)
[2024-11-14] MEDS: ALPRAZolam 0.25MG TABLET 0.25 MG PO ×2 (06:13→15:02)
[2024-11-14 08:38] LABS: Basophils % 0.2 % (0.1-2.0); Eosinophils % 0.2 % (0.1-12.0); Hematocrit 35.1 % (42.0-52.0); Hemoglobin 11.7 g/dL (14.1-18.0); Lymphocytes # 0.4 K/mm3 (0.7-4.5); Lymphocytes % 7.4 % (10-50); Mean Corpuscular HGB Conc 33.3 g/dL (31.8-35.4); Mean Platelet Volume 11.2 fl (7.4-10.4); Monocytes # 0.3 K/mm3 (0.1-1.0); Monocytes % 4.7 % (1.7-9.3); Neutrophils # 4.6 K/mm3 (1.8-7.8); Neutrophils % 86.7 % (37.0-80.0); Platelet Count 146 K/mm3 (142-424); Red Cell Distribution Width 12.6 % (11.5-17.5); White Blood Count 5.3 K/mm3 (4.8-10.8)
[2024-11-14 08:44] LABS: Albumin Level 3.9 g/dl (3.5-5.0); Chloride 94 mmol/L (98-107); Potassium 3.3 mmoL/L (3.5-5.1); Sodium 132 mmol/L (136-145)
[2024-11-14 08:47] LABS: Alanine Aminotransferase 34 U/L (12-78); Albumin/Globulin Ratio 1.4 (1.1-1.8); Alkaline Phosphatase 58 U/L (38-126); Anion Gap 12.3 mEq/L (5-15); Aspartate Amino Transferase 94 U/L (17-59); Bilirubin,Total 0.3 mg/dl (0.2-1.3); Blood Urea Nitrogen 27 mg/dl (9-20); Calcium 8.5 mg/dl (8.4-10.2); Carbon Dioxide 29 mmol/L (22.0-30.0); Creatinine Clearance Estimated 52 mL/min (50-200); Estimated Glomerular Filt Rate 67 ml/min (>60); GFR (African American) 82 ML/MIN (>60); Globulin 2.8 g/dL (1.3-3.2); Glucose 132 mg/dl (74-100); Magnesium 1.3 mg/dl (1.6-2.3); Total Protein,Serum 6.7 g/dl (6.3-8.2)
[2024-11-14] MEDS: ASPIRIN EC 81MG TABLET 81 MG PO (09:03)
[2024-11-14] MEDS: CLOPIDOGREL 75MG TAB 75 MG PO (09:03)
[2024-11-14] MEDS: OSELTAMIVIR 75MG CAPSULE 75 MG PO ×2 (09:04→21:05)
[2024-11-14] MEDS: ENOXAPARIN 80MG/0.8ML SYRINGE 65 MG SUBCUT ×2 (09:04→21:05)
[2024-11-14] MEDS: MAGNESIUM SULFATE IN WATER 2 GM/50 ML PIGGYBACK IV ×2 (09:56→15:02)
[2024-11-14] MEDS: UBROGEPANT 50MG TABLET 100 MG PO (10:01)
--- NOTE | 2024-11-14 10:08 | EXP.ACUTE.PN ---
Subjective *Date: 11/14/24 *Time: 16:02 Interval history: States he is feeling better today. Breathing more comfortably. On room air. Afebrile. No nausea or vomiting. Tolerating p.o. intake. Denies chest pain Medical Exam Vital signs and Labs for Last 24 Hours: Vital Signs Temp Pulse Pulse Resp BP Pulse Ox O2 Del Method 11/14/24 07:57 98.8 F 110 H 18 126/81 96 11/14/24 06:47 Nasal Cannula 11/14/24 06:03 94 H 11/14/24 06:03 98 H 11/14/24 06:03 95 Room Air 11/14/24 04:56 Nasal Cannula 11/14/24 04:00 90 11/14/24 04:00 99.0 F 100 H 115/60 97 Room Air 11/14/24 03:00 Room Air 11/14/24 00:44 Room Air 11/14/24 00:02 120 H 11/14/24 00:00 100.0 F H 108 H 18 137/77 94 L Room Air 11/13/24 23:17 87 11/13/24 23:17 81 11/13/24 23:17 Room Air 11/13/24 23:00 Room Air 11/13/24 21:00 Room Air 11/13/24 20:00 Room Air 11/13/24 20:00 98.3 F 92 H 16 133/90 97 Room Air 11/13/24 20:00 100 H 11/13/24 18:42 Room Air 11/13/24 17:00 Room Air 11/13/24 16:00 100 H 11/13/24 15:44 99.3 F 100 H 18 124/78 95 Room Air 11/13/24 15:00 Room Air 11/13/24 14:36 Room Air 11/13/24 14:00 101 H 11/13/24 14:00 99 H 11/13/24 14:00 94 L Room Air 11/13/24 13:35 98.7 F 103 H 20 155/93 H 94 L Room Air O2 Flow Rate 11/14/24 07:57 11/14/24 06:47 2 11/14/24 06:03 11/14/24 06:03 11/14/24 06:03 11/14/24 04:56 1 11/14/24 04:00 11/14/24 04:00 11/14/24 03:00 11/14/24 00:44 11/14/24 00:02 11/14/24 00:00 11/13/24 23:17 11/13/24 23:17 11/13/24 23:17 11/13/24 23:00 11/13/24 21:00 11/13/24 20:00 11/13/24 20:00 11/13/24 20:00 11/13/24 18:42 11/13/24 17:00 11/13/24 16:00 11/13/24 15:44 11/13/24 15:00 11/13/24 14:36 11/13/24 14:00 11/13/24 14:00 11/13/24 14:00 11/13/24 13:35 Intake and Output 11/13/24 11/14/24 11/14/24 23:59 07:59 15:59 Intake Total 420 / 685 265 / 625 360 / 625 Output Total 450 / 900 1000 / 1000 Balance -30 / -215 -735 / -375 360 / -375 Intake: Intake, Oral Amount 270 / 510 240 / 600 360 / 600 Intake, Other Amount 25 / 25 Intake, Total IV Amount 150 / 150 Levofloxacin/D5w 750 mg/150 ml 150 / 150 750 mg In 150 ml @ 100 mls/hr IV Q24H [facility] Rx#:[id number] Output: Output, Urine Amount 450 / 900 1000 / 1000 Other: Number of Unmeasured Voids 0 Weight 54.34 kg Patient Weight 11/14/24 23:59 Weight 54.34 kg Laboratory Results - last 24 hr 11/13/24 14:08: Troponin I 0.35 H 11/13/24 15:05: Chlamy pneumoniae PCR Not detected, Adenovirus (PCR) Not detected, B. pertussis DNA (PCR) Not detected, Coronavirus OC43 (PCR) Not detected, Coronavirus HKU1 (PCR) Not detected, Coronavirus 229E (PCR) Not detected, SARS-CoV-2 (PCR) Not detected, Coronavirus NL63 (PCR) Not detected, Human Metapneumovir PCR Not detected, Influenza A (H1) PCR Not detected, Influ A (H1N1/09) PCR Detected A, Influenza A (H3) PCR Not detected, Influenza Type A (PCR) Not detected, Influenza Type B (PCR) Not detected, M. pneumoniae (PCR) Not detected, Parainfluenza 1 (PCR) Not detected, Parainfluenza 2 (PCR) Not detected, Parainfluenza 3 (PCR) Not detected, Parainfluenza 4 (PCR) Not detected, RSV (PCR) Not detected, Entero/Rhino (PCR) Not detected 11/13/24 17:20: Troponin I 0.34 H 11/13/24 20:00: Troponin I 0.35 H 11/14/24 06:53: WBC 5.3, RBC 3.90 L, Hgb 11.7 L, Hct 35.1 L, MCV 90.0, MCH 30.0, MCHC 33.3, RDW 12.6, Plt Count 146, MPV 11.2 H, Neut % (Auto) 86.7 H, Lymph % (Auto) 7.4 L, [place] % (Auto) 4.7, Eos % (Auto) 0.2, Baso % (Auto) 0.2, Neut # (Auto) 4.6, Lymph # (Auto) 0.4 L, [place] # (Auto) 0.3, Eos # (Auto) 0.0, Baso # (Auto) 0.0, Sodium 132 L, Potassium 3.3 L, Chloride 94 L, Carbon Dioxide 29, Anion Gap 12.3, BUN 27 H, Creatinine 1.10, Estimated Creat Clear 52, Estimated GFR 67, Est GFR ( Amer) 82, Glucose 132 H, Calcium 8.5, Magnesium 1.3 L, Total Bilirubin 0.3, AST 94 H, ALT 34, Alkaline Phosphatase 58, Total Protein 6.7, Albumin 3.9, Globulin 2.8, Albumin/Globulin Ratio 1.4 I & O for Labs for Last 24 Hours: Intake & Output 11/11/24 11/12/24 11/13/24 11/14/24 23:59 23:59 23:59 23:59 Intake Total 420 / 685 625 / 625 Output Total 450 / 900 1000 / 1000 Balance -30 / -215 -375 / -375 Weight 63.701 kg 54.34 kg Constitutional: Present no acute distress, thin and cooperative Head: Present atraumatic and normocephalic ENT: Present normal exam Respiratory: Present prolonged expiratory phase, wheezes (Minimal, improved) and normal respiratory effort; Absent accessory muscle use, respiratory distress, rhonchi or crackles Cardiac: Present Reg Rate and Rhythm GI: Present soft and normal bowel sounds; Absent distention or tenderness Extremities: Present normal inspection and full ROM Skin: Present intact; Absent erythema Neuro: Present Grossly Intact, alert, awake, oriented x 3 and moves all extremities Assessment and Plan *Assessment and plan (1) Influenza A (H1N1): Status: Acute Category: Medical Code(s): J10.1 - Influenza due to other identified influenza virus with other respiratory manifestations (2) NSTEMI (non-ST elevated myocardial infarction): Status: Acute Category: Medical Code(s): I21.4 - Non-ST elevation (NSTEMI) myocardial infarction (3) Anxiety: Status: Acute Category: Medical Code(s): F41.9 - Anxiety disorder, unspecified (4) COPD (chronic obstructive pulmonary disease): Status: Acute Category: Medical Code(s): J44.9 - Chronic obstructive pulmonary disease, unspecified (5) Bronchitis: Status: Acute Category: Medical Code(s): J40 - Bronchitis, not specified as acute or chronic (6) DORIAN (acute kidney injury): Status: Acute Category: Medical Code(s): N17.9 - Acute kidney failure, unspecified (7) Smoking greater than 30 pack years: Status: Acute Category: Social Hx Code(s): F17.210 - Nicotine dependence, cigarettes, uncomplicated Plan 64-year-old male with extensive smoking history and previous TBI at the age of 17. Presents with shortness of breath and concern for migraine. Found to have mild elevation in troponins with a delta change. Kidney function abnormal concerning for DORIAN. In light of elevated heart score of 5, necessitated transfer for cardiology eval. Discussed case with ER physician at [facility] as well as cardiology. I agreed to accept patient in transfer for admission. Admitted for telemetry and serial labs and cardiology evaluation. Hemodynamically stable at this time on room air. Found to be flu positive. Will have cardiology evaluate on Friday morning. Pending their recommendations, anticipate either inpatient or outpatient ischemic workup in the setting of acute flu infection. Problems addressed as follows NSTEMI -Patient has detectable troponin of 0.3 on our labs at arrival. High-sensitivity troponin at outside hospital with initial troponin of 264, second troponin 327. BNP was elevated to 26. -Troponin stable at our facility at 0.35. No chest pain at this time. -Echo ordered for the morning -Loaded with aspirin at outside hospital and given 1 mg/kg Lovenox x 1 -Nitropaste placed on his chest. Pain more or less resolved by the time of arrival to [facility]. -Continue Lovenox 1 mg/kg twice daily, initiate aspirin 81 mg daily and Plavix 75 mg daily. Monitor on telemetry. -EKG obtained on arrival, per my review is normal sinus rhythm with no ischemic changes. -A1c normal at 5.7 per outside hospital records COPD Bronchitis Flu a positive -Comprehensive respiratory panel obtained at time of arrival to our facility, found to be flu a positive. Continue Tamiflu 75 mg twice daily for 5 days -For bronchitis component, continue levaquin 750 mg daily for 5 days - DuoNebs every 6 hours scheduled Migraines: Ubrelvy 100 mg daily as needed DORIAN: -Creatinine improved this morning to 1.1, BUN 27. - repeat CBC, CMP, magnesium ordered for the morning. -No further IV fluids at this time as patient is tolerating p.o. intake. -Caution with nephrotoxic Tobacco use disorder: Nicotine patch 21 mg daily as needed Full code Cardiac diet Lovenox
[2024-11-14] MEDS: LEVOFLOXACIN/D5W 750 MG/150 ML 750 MG/150 ML PIGGYBACK 100 MG IV (13:19)
[2024-11-14] MEDS: SODIUM CHLORIDE 0.9% 25ML BAG 25 ML IV (15:00)
[2024-11-14] MEDS: PROMETHAZINE HCL 25MG/ML 1ML VIAL 25 MG IV (15:01)
[2024-11-15] VITALS (14 sets, daily range): BP systolic 80–119; BP diastolic 42–70; PULSE 80–154; RESP 16–19; TEMP 36.6–37.6; O2SAT 94–96; BMI 18.3
--- NOTE | 2024-11-15 04:05 | PC.NURSE ---
Pt is alert and oriented x4 and currently on RA. Pt denies chest pain and remains NSR on telemetry. Pt has been NPO since 0000 due to cardiac consult this am. Pt lungs sounds remain diminished, pt denies needs and has rested well this shift.
--- NOTE | 2024-11-15 06:00 | CA_ITS ---
APPROVED REPORT EXAM: Comprehensive 2D, Doppler, and color-flow Echocardiogram Client Service Supervisor: Janki Godoy RDCS Ht: 5 ft 6 in Wt: 119lbs BSA: 1.60 BP: 155/93 mmHg Indications: SOA,NSTEMI,INCREASE TROP TDS IN APICAL VIEWS SECONDARY TO COPD M-Mode Dimensions RVDd 2.38 cm (0.9-2.6) LA Diam 2.59 cm (1.9-4.0) LVDd 3.79 cm (3.5-5.7) LVDs 2.95 cm (3.5-5.7) IVSd 0.94 cm (0.6-1.1) PWd 1.04 cm (0.6-1.1) EF (Teich) 45.50% FS 22.20% EDV (Teich) 61.60 mL ESV (Teich) 33.60 mL LV Diastology E Decel Time 177 (160-240 msec) E/A Ratio 0.8 Mitral Valve MV E Max Edwar. 30.0 (40-130 cm/s) MV A Velocity 37.0 (40-130 cm/s) E/A Ratio 0.81 MV PHT 52.0 ms Left Ventricle The left ventricle is normal size. The left ventricular systolic function is low normal. Proximal septal thickening is present. The septum is asynchronous. Regional wall motion abnormalities cannot be ruled out in the setting of technically difficult study. Diastolic function is indeterminate. LVEF is 50-55%. Right Ventricle The right ventricle is normal size. The right ventricular systolic function is normal. Atria The left atrium size is normal. The right atrium size is normal. There is no Doppler evidence of interatrial shunt. Aortic Valve Aortic valve opens well. There is no aortic valvular stenosis. No aortic regurgitation is present. Mitral Valve The mitral valve is normal in structure. No evidence of mitral valve stenosis. Trace mitral regurgitation. Tricuspid Valve Tricuspid valve leaflets are thickened but open well. Trace tricuspid regurgitation. There is insufficient TR jet to estimate RVSP. Pulmonic Valve The pulmonic valve leaflets are not well-visualized. Great Vessels The aortic root is normal in size. The ascending aorta is not well-visualized. IVC is normal in size and collapses >50% with inspiration. Pericardium There is a small-sized, localized anterior pericardial effusion present towards the apical RV free wall. No clear echo indications of tamponade. Other Information Study Quality: Technically Difficult Conclusion Technically difficult study due to poor acoustic windows. Low normal LV systolic function (LVEF 50-55%). Regional wall motion abnormalities cannot be ruled out in the setting of technically difficult study. No significant valvular stenosis or regurgitation. Small-sized, localized anterior pericardial effusion present towards the apical RV free wall. No clear echo indications of tamponade. Electronically signed by : Shelby Reed MD 11/15/2024 11:48:24
[2024-11-15] MEDS: IPRATROPIUM/ALBUTEROL 3 ML NEB IH ×3 (06:27→23:08)
[2024-11-15 07:02] LABS: Basophils % 0.2 % (0.1-2.0); Eosinophils # 1.4 K/mm3 (0.0-0.4); Eosinophils % 31.4 % (0.1-12.0); Hematocrit 41.4 % (42.0-52.0); Lymphocytes # 0.6 K/mm3 (0.7-4.5); Lymphocytes % 13.9 % (10-50); Mean Corpuscular HGB Conc 34.1 g/dL (31.8-35.4); Mean Corpuscular Hemoglobin 30.3 pg (27.0-31.2); Mean Platelet Volume 11.2 fl (7.4-10.4); Monocytes # 0.4 K/mm3 (0.1-1.0); Monocytes % 8.5 % (1.7-9.3); Neutrophils # 2.1 K/mm3 (1.8-7.8); Neutrophils % 45.1 % (37.0-80.0); Platelet Count 158 K/mm3 (142-424); Red Blood Count 4.65 M/mm3 (4.60-6.20); Red Cell Distribution Width 12.6 % (11.5-17.5); White Blood Count 4.6 K/mm3 (4.8-10.8)
[2024-11-15 07:09] LABS: Albumin Level 4.2 g/dl (3.5-5.0); Chloride 91 mmol/L (98-107); Potassium 3.5 mmoL/L (3.5-5.1); Sodium 130 mmol/L (136-145)
[2024-11-15 07:12] LABS: Alanine Aminotransferase 45 U/L (12-78); Albumin/Globulin Ratio 1.4 (1.1-1.8); Alkaline Phosphatase 67 U/L (38-126); Anion Gap 13.5 mEq/L (5-15); Aspartate Amino Transferase 126 U/L (17-59); Bilirubin,Total 0.4 mg/dl (0.2-1.3); Blood Urea Nitrogen 30 mg/dl (9-20); Carbon Dioxide 29 mmol/L (22.0-30.0); Creatinine Clearance Estimated 40 mL/min (50-200); Estimated Glomerular Filt Rate 51 ml/min (>60); GFR (African American) 62 ML/MIN (>60); Total Protein,Serum 7.2 g/dl (6.3-8.2)
[2024-11-15 07:13] LABS: Calcium 8.8 mg/dl (8.4-10.2); Glucose 125 mg/dl (74-100); Magnesium 2.1 mg/dl (1.6-2.3)
[2024-11-15 07:42] LABS: Hemoglobin 13.8 g/dL (14.1-18.0)
--- NOTE | 2024-11-15 07:50 | PC.NURSE ---
went in pt room this am and pt was very apprehensive about the possibility of needing a heart cath. pt states that he doesnt feel well enough to have that done . explained to pt that cardiology would be seeing him today to answer questions and detail plan of care. pt remains NPO for consult. no needs at this time. call light within reach.
[2024-11-15] MEDS: CLOPIDOGREL 75MG TAB 75 MG PO (08:47)
[2024-11-15] MEDS: ALPRAZolam 0.25MG TABLET 0.25 MG PO ×2 (08:47→18:25)
[2024-11-15] MEDS: ASPIRIN EC 81MG TABLET 81 MG PO (08:47)
[2024-11-15] MEDS: UBROGEPANT 50MG TABLET 100 MG PO (08:48)
[2024-11-15 08:52] LABS: Troponin I 0.23 ng/ml (0.00-0.034)
[2024-11-15] MEDS: OSELTAMIVIR PHOSPHATE 6MG/ML ORAL SUSP 60ML 30 MG PO ×2 (09:03→21:31)
[2024-11-15] MEDS: ENOXAPARIN 80MG/0.8ML SYRINGE 65 MG SUBCUT ×2 (09:03→21:30)
--- NOTE | 2024-11-15 09:14 | P.PN_ITS ---
Subjective *Date: 11/15/24 *Time: 10:20 Interval history: States he is feeling more weak today and just feels sick . Stable on room air. No nausea or vomiting. No chest pain. Elevated temperature overnight 200.2. Medical Exam Vital signs and Labs for Last 24 Hours: Vital Signs Temp Pulse Pulse Resp BP Pulse Ox O2 Del Method 11/15/24 08:00 100 H 11/15/24 06:31 Room Air 11/15/24 06:27 80 11/15/24 06:27 87 11/15/24 05:00 Room Air 11/15/24 04:00 90 11/15/24 04:00 99.4 F 92 H 16 116/63 96 Room Air 11/15/24 02:59 Room Air 11/15/24 01:00 Room Air 11/15/24 00:00 94 L Room Air 11/15/24 00:00 98.4 F 100 H 16 119/62 94 L Room Air 11/15/24 00:00 100 H 11/14/24 23:12 88 11/14/24 23:12 90 11/14/24 23:00 Room Air 11/14/24 20:44 Room Air 11/14/24 20:00 100.2 F H 99 H 16 127/75 94 L Room Air 11/14/24 20:00 96 Room Air 11/14/24 20:00 100 H 11/14/24 18:49 Room Air 11/14/24 18:08 102 H 11/14/24 18:08 104 H 11/14/24 17:00 Room Air 11/14/24 16:00 100 H 11/14/24 16:00 99.7 F H 102 H 18 129/76 95 Room Air 11/14/24 15:00 Room Air 11/14/24 13:00 Room Air 11/14/24 12:00 120 H 11/14/24 11:51 98.7 F 127 H 18 143/99 H 94 L Room Air 11/14/24 11:26 95 Room Air 11/14/24 11:00 Nasal Cannula O2 Flow Rate 11/15/24 08:00 11/15/24 06:31 11/15/24 06:27 11/15/24 06:27 11/15/24 05:00 11/15/24 04:00 11/15/24 04:00 11/15/24 02:59 11/15/24 01:00 11/15/24 00:00 11/15/24 00:00 11/15/24 00:00 11/14/24 23:12 11/14/24 23:12 11/14/24 23:00 11/14/24 20:44 11/14/24 20:00 11/14/24 20:00 11/14/24 20:00 11/14/24 18:49 11/14/24 18:08 11/14/24 18:08 11/14/24 17:00 11/14/24 16:00 11/14/24 16:00 11/14/24 15:00 11/14/24 13:00 11/14/24 12:00 11/14/24 11:51 11/14/24 11:26 11/14/24 11:00 2 Intake and Output 11/14/24 11/15/24 11/15/24 23:59 07:59 15:59 Intake Total 250 / 1115 240 / 480 240 / 480 Output Total 300 / 1860 300 / 300 Balance -50 / -745 -60 / 180 240 / 180 Intake: Intake, Oral Amount 240 / 480 240 / 480 Intake, Total IV Amount 250 / 250 Levofloxacin/D5w 750 mg/150 ml 150 / 150 750 mg In 150 ml @ 100 mls/hr IV Q24H [facility] Rx#:[id number] Magnesium Sulfate in Water 2 gm 100 / 100 In 50 ml @ 50 mls/hr IV Q6H [facility] Rx#:[id number] Output: Output, Urine Amount 300 / 1860 300 / 300 Other: Number of Unmeasured Voids 0 Weight 53.116 kg Patient Weight 11/15/24 23:59 Weight 53.116 kg Laboratory Results - last 24 hr 11/15/24 06:35: WBC 4.6 L, RBC 4.65, Hgb 13.8 L D, Hct 41.4 L, MCV 89.0, MCH 30.3, MCHC 34.1, RDW 12.6, Plt Count 158, MPV 11.2 H, Neut % (Auto) 45.1, Lymph % (Auto) 13.9, [place] % (Auto) 8.5, Eos % (Auto) 31.4 H, Baso % (Auto) 0.2, Neut # (Auto) 2.1, Lymph # (Auto) 0.6 L, [place] # (Auto) 0.4, Eos # (Auto) 1.4 H, Baso # (Auto) 0.0, Sodium 130 L, Potassium 3.5, Chloride 91 L, Carbon Dioxide 29, Anion Gap 13.5, BUN 30 H, Creatinine 1.40 H D, Estimated Creat Clear 40, Estimated GFR 51 L, Est GFR ( Amer) 62 D, Glucose 125 H, Calcium 8.8, Magnesium 2.1 D , Total Bilirubin 0.4, AST 126 H D, ALT 45 D, Alkaline Phosphatase 67, Troponin I 0.23 H, Total Protein 7.2, Albumin 4.2, Globulin 3.0, Albumin/Globulin Ratio 1.4 I & O for Labs for Last 24 Hours: Intake & Output 11/12/24 11/13/24 11/14/24 11/15/24 23:59 23:59 23:59 23:59 Intake Total 420 / 685 875 / 1115 480 / 480 Output Total 450 / 900 1660 / 1860 300 / 300 Balance -30 / -215 -785 / -745 180 / 180 Weight 63.701 kg 54.34 kg 53.116 kg Constitutional: Present no acute distress, thin and cooperative Head: Present atraumatic and normocephalic ENT: Present normal exam Respiratory: Present prolonged expiratory phase, wheezes (Minimal, improved) and normal respiratory effort; Absent accessory muscle use, respiratory distress, rhonchi or crackles Cardiac: Present Reg Rate and Rhythm GI: Present soft and normal bowel sounds; Absent distention or tenderness Extremities: Present normal inspection and full ROM Skin: Present intact; Absent erythema Neuro: Present Grossly Intact, alert, awake, oriented x 3 and moves all extremities Assessment and Plan *Assessment and plan (1) Influenza A (H1N1): Status: Acute Category: Medical Code(s): J10.1 - Influenza due to other identified influenza virus with other respiratory manifestations (2) NSTEMI (non-ST elevated myocardial infarction): Status: Acute Category: Medical Code(s): I21.4 - Non-ST elevation (NSTEMI) myocardial infarction (3) Anxiety: Status: Acute Category: Medical Code(s): F41.9 - Anxiety disorder, unspecified (4) COPD (chronic obstructive pulmonary disease): Status: Acute Category: Medical Code(s): J44.9 - Chronic obstructive pulmonary disease, unspecified (5) Bronchitis: Status: Acute Category: Medical Code(s): J40 - Bronchitis, not specified as acute or chronic (6) DORIAN (acute kidney injury): Status: Acute Category: Medical Code(s): N17.9 - Acute kidney failure, unspecified (7) Smoking greater than 30 pack years: Status: Acute Category: Social Hx Code(s): F17.210 - Nicotine dependence, cigarettes, uncomplicated Plan 64-year-old male with extensive smoking history and previous TBI at the age of 17. Presents with shortness of breath and concern for migraine. Found to have mild elevation in troponins with a delta change. Kidney function abnormal concerning for DORIAN. In light of elevated heart score of 5, necessitated transfer for cardiology eval. Discussed case with ER physician at [facility] as well as cardiology. I agreed to accept patient in transfer for admission. Admitted for telemetry and serial labs and cardiology evaluation. Hemodynamically stable at this time on room air. Found to be flu positive. Cardiology evaluating today. Anticipate heart cath tomorrow. Problems addressed as follows NSTEMI CAD/coronary artery calcification -Patient has detectable troponin of 0.35 on serial labs on arrival. Repeat this morning of 0.23. -Review of CT from 05/2023 showed significant coronary calcification. Echo ordered this morning, formal read pending. Cardiology evaluated, and discussion with them, they recommend heart cath. But will hold today given patient's symptoms from flu. Will need heart cath in the near future, will consider tomorrow versus within the next week if discharges home. -Continue aspirin 81 mg daily, Plavix 75 mg daily, Lovenox 1 mg/kg twice daily. - Monitor on telemetry. -A1c normal at 5.7 per outside hospital records COPD Bronchitis Flu a positive -Comprehensive respiratory panel obtained at time of arrival to our facility, found to be flu a positive. Continue Tamiflu 75 mg twice daily for 5 days -For bronchitis component, continue levaquin 750 mg daily for 5 days - DuoNebs every 6 hours scheduled Migraines: Ubrelvy 100 mg daily as needed DORIAN: -Creatinine improved this morning to 1.4, BUN 30. - repeat CBC, CMP, magnesium ordered for the morning. -No further IV fluids at this time as patient is tolerating p.o. intake. -Caution with nephrotoxic Anxiety: Continue Xanax 0.25 mg 3 times a day. Patient uses illicitly as an outpatient and smokes marijuana heavily. Significant complaint of anxiety. Will manage as needed while admitted, no plan to prescribe at discharge. Tobacco use disorder: Nicotine patch 21 mg daily as needed Full code Cardiac diet Lovenox
[2024-11-15] MEDS: SODIUM CHLORIDE 0.9% 25ML BAG 25 ML IV (09:59)
[2024-11-15] MEDS: PROMETHAZINE HCL 25MG/ML 1ML VIAL 25 MG IV (09:59)
--- NOTE | 2024-11-15 10:01 | EXP.CARD.CON ---
History of Present Illness History of Present Illness Consult date: 11/15/24 Requesting physician: Ramirez Johnson Consult reason: chest pain and shortness of breath Chief complaint: SOA, headache and mild chest pain Additional Medical History:: 1. 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 Chronic marijuana and benzodiazepine use 3. Tobacco use -emphysema 4. Hospitalization for Flu with NSTEMI, 10/2024 -Extensive coronary artery calcifications on chest CT, 2022 History of present illness: Mr. Tolbert is a 64-year-old male who presented to [facility] with shortness of breath, headache, mild chest discomfort. Concern for migraine headache. Initial labs showed detectable troponin. Delta showed change. Findings concerning for NSTEMI. Also concern for COPD exacerbation/bronchitis. Medicine and cardiology were consulted for transfer for cardiology eval given patient's risk factors, tobacco use history, emphysema, and positive troponin delta. Excepted in transfer for further management. On arrival to [facility], patient states he still feels a little short of breath. Has had a mildly productive cough. Is satting in the mid 90s on room air. No nausea or vomiting. Still has mild headache behind his eyes but doing better since receiving medication at [facility]. Received aspirin, Lovenox, morphine, Nitropaste. EKG obtained on arrival shows no ST changes. Normal sinus rhythm. Admitted for telemetry and cards eval. Heart score 5. Risk of Mace 12 to 16%. Necessitating admission and further workup. 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 Has had PTSD and anxiety since. Extensive smoking history with over 89-[id number]-xzyx history. Emphysema. Daily marijuana use. The above per Dr. Johnson Cardiology consulted for evaluation and management of NSTEMI in setting of Flu with HEART score of 5. [facility] Disclaimer: The information contained in this section may have been updated after the patient was seen, as this information can be updated by other users. Medical History Migraine Depression TBI (traumatic brain injury) Multiple lung nodules on CT Smoking greater than 30 pack years Pulmonary emphysema Dyspnea on exertion Acute respiratory failure with hypoxia Atypical pneumonia Subdural hematoma Surgical History H/O hemorrhoidectomy Hx of brain surgery Family History Mother Alzheimer's dementia Father Coronary artery disease Heart attack Brother Heart attack Son Overdose Social History Smoking Status: Current every day smoker alcohol intake: former substance use type: marijuana current occupational status: disabled Travel in the last 8 weeks: None household members: family housing: house Have you lived/traveled outside US in past 30 days?: No Contact w/someone who lives/traveled outside US past 30 days?: No Exposure to someone with infectious disease in past 14 days?: No Do you have a fever (greater than 100.4 F or 38 C)?: No Have you tested positive for COVID-19: No Exposed to someone with COVID-19 in past 14 days?: No Do you have a sore throat?: No Do you have a cough?: No Do you have any weakness?: No Are you experiencing any nausea/vomitting?: No Do you have any diarrhea?: No Are you experiencing any unusual bleeding?: No Do you have any muscle aches/pain?: No Do you have any abdominal pain?: No Are you experiencing loss of taste or smell?: No Review of Systems Review of Systems Review of systems:: pertinent systems reviewed and negative unless documented below *Cardiovascular Cardiovascular: Reports chest pain, Reports dyspnea and Reports dyspnea on exertion *Respiratory Respiratory: Reports dyspnea and Reports dyspnea on exertion Exam Data for Last 24 hours Vital signs and Labs for Last 24 Hours: Temp Pulse Resp BP Pulse Ox O2 Del Method O2 Flow Rate 98.7 F 97 H 18 104/68 L 95 Room Air 2 11/15/24 08:00 11/15/24 08:00 11/15/24 08:00 11/15/24 08:00 11/15/24 08:00 11/15/24 08:00 11/14/24 11:00 Laboratory Results - last 24 hr 11/15/24 06:35: WBC 4.6 L, RBC 4.65, Hgb 13.8 L D, Hct 41.4 L, MCV 89.0, MCH 30.3, MCHC 34.1, RDW 12.6, Plt Count 158, MPV 11.2 H, Neut % (Auto) 45.1, Lymph % (Auto) 13.9, [place] % (Auto) 8.5, Eos % (Auto) 31.4 H, Baso % (Auto) 0.2, Neut # (Auto) 2.1, Lymph # (Auto) 0.6 L, [place] # (Auto) 0.4, Eos # (Auto) 1.4 H, Baso # (Auto) 0.0, Sodium 130 L, Potassium 3.5, Chloride 91 L, Carbon Dioxide 29, Anion Gap 13.5, BUN 30 H, Creatinine 1.40 H D, Estimated Creat Clear 40, Estimated GFR 51 L, Est GFR ( Amer) 62 D, Glucose 125 H, Calcium 8.8, Magnesium 2.1 D, Total Bilirubin 0.4, AST 126 H D, ALT 45 D, Alkaline Phosphatase 67, Troponin I 0.23 H, Total Protein 7.2, Albumin 4.2, Globulin 3.0, Albumin/Globulin Ratio 1.4 I & O for Last 24 hours: Intake & Output 11/12/24 11/13/24 11/14/24 11/15/24 11:59 11:59 11:59 11:59 Intake Total 1045 / 1045 730 / 730 Output Total 1450 / 1810 960 / 960 Balance -405 / -765 -230 / -230 Weight 119 lb 12.8 oz 117 lb 1.6 oz Constitutional Constitutional: no acute distress Comments: Anxious about plans for cardiac cath. *Routine Respiratory Exam Respiratory: Present decreased breath sounds; Absent rhonchi or wheezes *Routine Cardiovascular Exam Cardiovascular: Present RRR; Absent murmur, gallop or rubs *Routine Extremities Exam Extremities: Absent edema *Routine Neurological Exam Neurological: Present alert, oriented X3 and CN II-XII intact Meds Home Medications and Allergies Home Medications ?Medication ?Instructions ?Recorded ?Confirmed ?Type No Known Home Medications 04/28/24 11/13/24 History New Prescriptions to Start Prescriptions: Allergies Allergy/AdvReac Type Severity Reaction Status Date / Time No Known Allergies Allergy Verified 04/28/24 13:40 Assessment and Plan *Assessment and plan (1) Influenza A (H1N1): Status: Acute Category: Medical Code(s): J10.1 - Influenza due to other identified influenza virus with other respiratory manifestations (2) NSTEMI (non-ST elevated myocardial infarction): Status: Acute Category: Medical Code(s): I21.4 - Non-ST elevation (NSTEMI) myocardial infarction (3) Anxiety: Status: Acute Category: Medical Code(s): F41.9 - Anxiety disorder, unspecified (4) COPD (chronic obstructive pulmonary disease): Status: Acute Qualifiers: COPD type: emphysema Emphysema type: unspecified Qualified Code(s): J43.9 - Emphysema, unspecified Category: Medical Code(s): J44.9 - Chronic obstructive pulmonary disease, unspecified (5) Smoking greater than 30 pack years: Status: Acute Category: Social Hx Code(s): F17.210 - Nicotine dependence, cigarettes, uncomplicated (6) Pulmonary emphysema: Status: Acute Qualifiers: Emphysema type: centrilobular Qualified Code(s): J43.2 - Centrilobular emphysema Category: Medical Code(s): J43.9 - Emphysema, unspecified (7) Hyponatremia: Status: Acute Category: Medical Code(s): E87.1 - Hypo-osmolality and hyponatremia (8) DORIAN (acute kidney injury): Status: Acute Category: Medical Code(s): N17.9 - Acute kidney failure, unspecified (9) Benzodiazepine abuse: Status: Acute Category: Medical Code(s): F13.10 - Sedative, hypnotic or anxiolytic abuse, uncomplicated Plan 1. Flu H1N1 -on Tamiflu and Levofloxacin -per Dr. Johnson 2. NSTEMI -peak troponin 0.35 down to 0.23 today -echo pending -on ASA and plavix with lovenox -recommend cardiac cath prior to discharge (pt's PTSD and anxiety causing hesitation) -Heart score of 5 with risk of MACE at 12-16% -severe coronary artery calcifications on chest CT in 2022 3. Tobacco and marijuana use -emphysema 4. Mild anemia, improving -Hgb 13.8 5. Mild hyponatremia at 130 6. DORIAN -Cr 1.5 Echo today shows EF 50-55% but unable to adequately assess regional wall motion. No significant valve disease. Small, localized anterior effusion noted without evidence of tamponade. Temp up to 100.2 overnight, will postpone cath for now but would recommend it prior to discharge Continue DAPT and lovenox
--- NOTE | 2024-11-15 17:34 | PC.NURSE ---
pt resting supine in bed. tolerating ra with sats >90%. pt has not complained of chest pain this shift. complained of a headache and nausea this morning and was treated per mar with positive results. pt seems apprehensive about heart cath that is planned for tomorrow. cards has consulted with him today. brother at bedside spoke with Trevor SANDOVAL this morning regarding POC. pt uses urinal independently. pt has been tearful throughout the shift, stating that he just wants to feel better . pt has had a good appetite this shift and has tolerated well. no needs at this time. droplet and contact precautions in place due to flu a. call light within reach.
--- NOTE | 2024-11-15 20:09 | PC.NURSE ---
Iveth IZAGUIRRE was paged to notify him about the patient's hypotensive blood pressures. The automatic readings were 87/42 (MAP 57) and 80/56 (MAP 65). The manual reading was 87/59 (MAP 68). Waiting for any new orders.
--- NOTE | 2024-11-15 20:16 | PC.NURSE ---
Iveth IZAGUIRRE was paged to notify him about the patient's hypotensive blood pressures. The automatic readings were 87/42 (MAP 57) and 80/56 (MAP 64). The manual reading was 87/59 (MAP 68). Waiting for any new orders.
--- NOTE | 2024-11-15 21:49 | PC.NURSE ---
Addendum entered by Charity Newsome RN 11/15/24 22:12: STAT EKG was also obtained by Adry LEIVA. The report showed sinus tachycardia. Patient's heart rate has decreased and is currently maintaining the low 100s per telemetry. Addendum entered by Charity Newsome RN 11/15/24 21:55: A 500 mL bolus of normal saline was obtained. Administering per NOV. Original Note: Patient's heart rate has been increasing gradually (starting in the 120s) since steward/stewardess third class notification, and is now currently maintaining in the 150s, occasionally jumping to the 160s (steward/stewardess third class notified me around 21:40). I checked on the patient to find him sitting on the side of the bed eating strawberry ice cream. He does not currently have any complaints. Iveth IZAGUIRRE was notified of this occurrence at this time. Waiting for any new orders.
[2024-11-15] MEDS: 0.9 % SODIUM CHLORIDE 500 ML 250 ML IV (22:06)
--- NOTE | 2024-11-15 22:09 | ECG_ITS ---
APPROVED REPORT Exam: Resting ECG HR:108 bpm ECG Measurements Heart Rate 108 AXES AL 130 P 96 QRSd 85 QRS 88 QT 307 T 81 QTc 370 Conclusion SINUS TACHYCARDIA ABNORMAL RHYTHM ECG UNCONFIRMED REPORT Electronically signed by : Vance Briones MD 11/17/2024 08:50:49
[2024-11-16] VITALS (7 sets, daily range): BP systolic 95–172; BP diastolic 64–107; PULSE 82–110; RESP 18; TEMP 36.6–36.9; O2SAT 95–96; BMI 18.5
--- NOTE | 2024-11-16 00:02 | PC.NURSE ---
Addendum entered by Charity Newsome RN 11/16/24 00:07: Intravenous metoprolol tartrate was ordered. Administering per NOV. Original Note: Adry SORIANO notified me that the patient's blood pressure was very elevated. Her automatic readings were 162/104 and 174/105; a manual blood pressure was taken as well and it was 172/94. The patient's heart rate was 110 at the time. Iveth IZAGUIRRE was paged at this time to notify him about the patient's elevated blood pressures. Pending new orders.
[2024-11-16] MEDS: METOPROLOL TARTRATE 5MG/5ML VIAL 5 MG IV (00:14)
[2024-11-16] MEDS: PROMETHAZINE HCL 25MG/ML 1ML VIAL 25 MG IV (01:42)
--- NOTE | 2024-11-16 04:03 | PC.NURSE ---
Patient is alert and oriented x4. Patient stated that he does not feel good at all. He was observed to have both wakeful periods and resting periods (eyes closed, respirations even/unlabored on room air) throughout the night. Patient has appeared anxious at random times. He has had complaints of nausea this shift with one emesis episode (measured/documented accordingly); phenergan was administered once per MAR. Scheduled medications and breathing treatments administered as appropriately per MAR. Intravenous metoprolol and a normal saline bolus was given as a one time dose for heart rate + blood pressure concerns this shift (see prior note). He has not had any complaints of chest pain. Patient's blood pressure is elevated. His heart rate is currently controlled (previously tachycardic, see prior note). He has been running normal sinus/sinus tachycardia on telemetry. Auscultation of his bowels were within normal findings. Patient had a small bowel movement this shift. Lung sounds were very diminished. He has been having an intermittent cough. Patient ambulates without difficulties. He was given a strawberry ice cream and Mountain Dew as a bedtime snack prior to midnight; he has remained NPO since per cardiology consult. At this time, the patient is resting in bed without any further complaints. Call light within reach. Contact/droplet precautions in place for Influenza A (H1N1/09).
[2024-11-16] MEDS: IPRATROPIUM/ALBUTEROL 3 ML NEB IH ×2 (06:15→10:54)
[2024-11-16 06:26] LABS: Hematocrit 40.8 % (42.0-52.0); Hemoglobin 13.7 g/dL (14.1-18.0); Lymphocytes # 0.3 K/mm3 (0.7-4.5); Lymphocytes % 10.7 % (10-50); Mean Corpuscular HGB Conc 33.6 g/dL (31.8-35.4); Mean Corpuscular Hemoglobin 29.7 pg (27.0-31.2); Mean Corpuscular Volume 88.3 fl (80-94); Mean Platelet Volume 11.6 fl (7.4-10.4); Monocytes # 0.3 K/mm3 (0.1-1.0); Monocytes % 11.4 % (1.7-9.3); Neutrophils # 2.3 K/mm3 (1.8-7.8); Neutrophils % 77.2 % (37.0-80.0); Platelet Count 128 K/mm3 (142-424); Red Blood Count 4.62 M/mm3 (4.60-6.20); Red Cell Distribution Width 12.7 % (11.5-17.5)
[2024-11-16 06:44] LABS: Albumin Level 3.8 g/dl (3.5-5.0); Chloride 91 mmol/L (98-107); Cholesterol 206 mg/dl (140-200); Sodium 132 mmol/L (136-145); Triglycerides 210 mg/dl (30-150); VLDL Cholesterol 42 mg/dL (0-40)
[2024-11-16 06:45] LABS: HDL Cholesterol 51 mg/dl (40-60); Magnesium 1.8 mg/dl (1.6-2.3); Potassium 3.4 mmoL/L (3.5-5.1)
[2024-11-16 06:47] LABS: Alanine Aminotransferase 44 U/L (12-78); Albumin/Globulin Ratio 1.4 (1.1-1.8); Alkaline Phosphatase 60 U/L (38-126); Anion Gap 13.4 mEq/L (5-15); Aspartate Amino Transferase 102 U/L (17-59); Bilirubin,Total 0.3 mg/dl (0.2-1.3); Blood Urea Nitrogen 40 mg/dl (9-20); Carbon Dioxide 31 mmol/L (22.0-30.0); Creatinine Clearance Estimated 38 mL/min (50-200); Estimated Glomerular Filt Rate 47 ml/min (>60); GFR (African American) 57 ML/MIN (>60); Globulin 2.8 g/dL (1.3-3.2); Total Protein,Serum 6.6 g/dl (6.3-8.2)
[2024-11-16 06:48] LABS: Glucose 149 mg/dl (74-100)
[2024-11-16 06:56] LABS: Direct LDL Cholesterol 96.32 mg/dL (100-129)
[2024-11-16] MEDS: CLOPIDOGREL 75MG TAB 75 MG PO (08:37)
[2024-11-16] MEDS: POTASSIUM CHLORIDE 20MEQ TAB 40 MEQ PO ×2 (08:37→12:15)
[2024-11-16] MEDS: ASPIRIN EC 81MG TABLET 81 MG PO (08:38)
[2024-11-16] MEDS: OSELTAMIVIR PHOSPHATE 6MG/ML ORAL SUSP 60ML 30 MG PO (08:47)
[2024-11-16] MEDS: ENOXAPARIN 60MG/0.6ML SYRINGE 55 MG SUBCUT (08:47)
[2024-11-16] MEDS: ALPRAZolam 0.25MG TABLET 0.25 MG PO (09:12)
--- NOTE | 2024-11-16 09:38 | EXP.CARD.PN ---
Subjective Subjective Date: 11/16/24 Time: 09:38 Principal diagnosis: FLU, NSTEMI Interval history: 64 yo WM in bed complaining of dry heaving and nausea. Wants anxiety meds. States he doesn't feel he is strong enought to have heart cath at this time. Exam Data for Last 24 hours Vital signs and Labs for Last 24 Hours: Temp Pulse Resp BP Pulse Ox O2 Del Method O2 Flow Rate 98.4 F 100 H 18 147/107 H 96 Room Air 2 11/16/24 07:57 11/16/24 08:00 11/16/24 07:57 11/16/24 07:57 11/16/24 08:00 11/16/24 09:00 11/14/24 11:00 Laboratory Results - last 24 hr 11/16/24 05:29: WBC 3.0 L D, RBC 4.62, Hgb 13.7 L, Hct 40.8 L, MCV 88.3, MCH 29.7, MCHC 33.6, RDW 12.7, Plt Count 128 L, MPV 11.6 H, Neut % (Auto) 77.2, Lymph % (Auto) 10.7, [place] % (Auto) 11.4 H, Eos % (Auto) 0.0 L, Baso % (Auto) 0.0 L, Neut # (Auto) 2.3, Lymph # (Auto) 0.3 L, [place] # (Auto) 0.3, Eos # (Auto) 0.0, Baso # (Auto) 0.0, Sodium 132 L, Potassium 3.4 L, Chloride 91 L, Carbon Dioxide 31 H, Anion Gap 13.4, BUN 40 H D, Creatinine 1.50 H, Estimated Creat Clear 38, Estimated GFR 47 L, Est GFR ( Amer) 57 L, Glucose 149 H, Calcium 9.0, Magnesium 1.8 D, Total Bilirubin 0.3, AST 102 H, ALT 44, Alkaline Phosphatase 60, Total Protein 6.6, Albumin 3.8, Globulin 2.8, Albumin/Globulin Ratio 1.4, Triglycerides 210 H, Cholesterol 206 H, LDL Cholesterol Direct 96.32 L, VLDL Cholesterol 42 H, HDL Cholesterol 51, Cholesterol/HDL Ratio 4.0 H I & O for Last 24 hours: Intake & Output 11/13/24 11/14/24 11/15/24 11/16/24 11:59 11:59 11:59 11:59 Intake Total 1045 / 1045 730 / 730 1730 / 1730 Output Total 1450 / 1810 1160 / 1160 325 / 325 Balance -405 / -765 -430 / -430 1405 / 1405 Weight 119 lb 12.8 oz 117 lb 1.6 oz 118 lb 3.2 oz Constitutional Constitutional: mild distress *Routine Respiratory Exam Respiratory: Present diminished air movement *Routine Cardiovascular Exam Cardiovascular: Present RRR Progress Note: A&P Assessment and plan (1) Influenza A (H1N1): Status: Acute (2) NSTEMI (non-ST elevated myocardial infarction): Status: Acute (3) Anxiety: Status: Acute (4) COPD (chronic obstructive pulmonary disease): Status: Acute (5) Smoking greater than 30 pack years: Status: Acute (6) Pulmonary emphysema: Status: Acute (7) Hyponatremia: Status: Acute (8) DORIAN (acute kidney injury): Status: Acute (9) Benzodiazepine abuse: Status: Acute Assessment and Plan Assessment and Plan for All Diagnoses:: 1. Flu H1N1 -on Tamiflu and Levofloxacin 2. NSTEMI -peak troponin 0.35 down to 0.23 yesterday -echo EF 50-55% but due to technical difficulties unable to see if there are any wall motion abnormalities -on ASA and plavix with lovenox -recommend cardiac cath prior to discharge (pt's PTSD and anxiety causing hesitation) -Heart score of 5 with risk of MACE at 12-16% -severe coronary artery calcifications on chest CT in 2022 3. Tobacco and marijuana use -emphysema 4. Mild anemia, improving -Hgb 13.8 5. Mild hyponatremia at 132 -improving 6. DORIAN -Cr 1.5 Unlikely that patient will consent to heart cath this admission due to anxiety and symptoms from FLU. Continue DAPT Add statin due to CAD Add metoprolol succinate 25 mg daily due to NSTEMI and HR and BP Hold MEDARDO/ARB/ARNi, [id number] aldactone due to DORIAN
[2024-11-16] MEDS: 0.9 % SODIUM CHLORIDE 1000ML 500 ML IV (09:49)
[2024-11-16] MEDS: METOPROLOL SUCCINATE XL 25MG TABLET 25 MG PO (10:25)
--- NOTE | 2024-11-16 11:25 | EXP.DC.SUM ---
General Admission date:: 11/13/24 HPI HPI HPI: Mr. Tolbert is a 64-year-old male who presented to [facility] with shortness of breath, headache, mild chest discomfort. Concern for migraine headache. Initial labs showed detectable troponin. Delta showed change. Findings concerning for NSTEMI. Also concern for COPD exacerbation/bronchitis. Medicine and cardiology were consulted for transfer for cardiology eval given patient's risk factors, tobacco use history, emphysema, and positive troponin delta. Excepted in transfer for further management. On arrival to [facility], patient states he still feels a little short of breath. Has had a mildly productive cough. Is satting in the mid 90s on room air. No nausea or vomiting. Still has mild headache behind his eyes but doing better since receiving medication at [facility]. Received aspirin, Lovenox, morphine, Nitropaste. EKG obtained on arrival shows no ST changes. Normal sinus rhythm. Admitted for telemetry and cards eval. Heart score 5. Risk of Mace 12 to 16%. Necessitating admission and further workup. 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 Has had PTSD and anxiety since. Extensive smoking history with over 69-blcb-oyip history. Emphysema. Daily marijuana use. Hospital Course Hospital Course Hospital Course: Terence Tolbert is a 64-year-old male with extensive smoking history and previous TBI at the age of 17. Presented with shortness of breath and concern for migraine. Found to have mild elevation in troponins with a delta change. Kidney function abnormal concerning for DORIAN. In light of elevated heart score of 5, necessitated transfer for cardiology evaluation. Discussed case with ER physician at [facility] as well as cardiology. I agreed to accept patient in transfer for admission. #NSTEMI #CAD/coronary artery calcification #Influenza A ? Troponin peaked at 0.35, EKG without acute ischemic changes. ? Review of CT from 05/2023 showed significant coronary calcification. ? ECHO LVEF 50 to 55%, technically difficult study so wall motion abnormalities cannot be ruled out. A1c 5.7%. ? Unfortunately, patient tested positive for the flu but chest pains on admission resolved. Given these findings, cardiology recommended outpatient ischemic workup to which patient was agreeable. ? Discharged with aspirin 81 mg, Plavix 75 mg, atorvastatin 40 mg, metoprolol succinate 25 mg, Tamiflu. ? Referred to cardiology to follow-up within 1 week. #DORIAN ? Creatinine slightly bumped to 1.5 this morning, baseline 1.1. ? Likely prerenal in the setting of influenza A, advised patient to continue to keep hydrated. #Tobacco use disorder ? Nicotine patch 21 mg daily as needed. Total time spent on discharge: 32 minutes on chart review, counseling, documentation, and direct care with patient. Exam Data for Last 24 hours Vital signs and Labs for Last 24 Hours: Temp Pulse Resp BP Pulse Ox O2 Del Method O2 Flow Rate 98.4 F 100 H 18 147/107 H 96 Room Air 2 11/16/24 07:57 11/16/24 08:00 11/16/24 07:57 11/16/24 07:57 11/16/24 08:00 11/16/24 10:37 11/14/24 11:00 Laboratory Results - last 24 hr 11/16/24 05:29: WBC 3.0 L D, RBC 4.62, Hgb 13.7 L, Hct 40.8 L, MCV 88.3, MCH 29.7, MCHC 33.6, RDW 12.7, Plt Count 128 L, MPV 11.6 H, Neut % (Auto) 77.2, Lymph % (Auto) 10.7, [place] % (Auto) 11.4 H, Eos % (Auto) 0.0 L, Baso % (Auto) 0.0 L, Neut # (Auto) 2.3, Lymph # (Auto) 0.3 L, [place] # (Auto) 0.3, Eos # (Auto) 0.0, Baso # (Auto) 0.0, Sodium 132 L, Potassium 3.4 L, Chloride 91 L, Carbon Dioxide 31 H, Anion Gap 13.4, BUN 40 H D, Creatinine 1.50 H, Estimated Creat Clear 38, Estimated GFR 47 L, Est GFR ( Amer) 57 L, Glucose 149 H, Calcium 9.0, Magnesium 1.8 D, Total Bilirubin 0.3, AST 102 H, ALT 44, Alkaline Phosphatase 60, Total Protein 6.6, Albumin 3.8, Globulin 2.8, Albumin/Globulin Ratio 1.4, Triglycerides 210 H, Cholesterol 206 H, LDL Cholesterol Direct 96.32 L, VLDL Cholesterol 42 H, HDL Cholesterol 51, Cholesterol/HDL Ratio 4.0 H I & O for Last 24 hours: Intake & Output 11/13/24 11/14/24 11/15/24 11/16/24 23:59 23:59 23:59 23:59 Intake Total 420 / 685 875 / 1115 1440 / 2090 770 / 770 Output Total 450 / 900 1660 / 1860 625 / 625 200 / 200 Balance -30 / -215 -785 / -745 815 / 1465 570 / 570 Weight 63.701 kg 54.34 kg 53.1 kg 53.615 kg Constitutional Constitutional: no acute distress *Routine HEENT Exam Head: Present normocephalic Eye: Present EOMI and PERRL ENT: Present mucous membranes moist *Routine Neck Exam Neck: Present supple; Absent lymphadenopathy *Routine Respiratory Exam Respiratory: Present CTA bilaterally *Routine Cardiovascular Exam Cardiovascular: Present RRR *Routine Abdominal Exam Abdominal: Present soft and normoactive bowel sounds; Absent tenderness *Routine Extremities Exam Extremities: Absent cyanosis, clubbing or edema *Routine Skin Exam Skin: Present warm; Absent rash *Routine Neurological Exam Neurological: Present alert and oriented X3 Results Data Completed and Pending Labs on day of discharge: Labs from last 24 hours 11/16/24 05:29 WBC 3.0 L D RBC 4.62 Hgb 13.7 L Hct 40.8 L MCV 88.3 MCH 29.7 MCHC 33.6 RDW 12.7 Plt Count 128 L MPV 11.6 H Neut % (Auto) 77.2 Lymph % (Auto) 10.7 [place] % (Auto) 11.4 H Eos % (Auto) 0.0 L Baso % (Auto) 0.0 L Neut # (Auto) 2.3 Lymph # (Auto) 0.3 L [place] # (Auto) 0.3 Eos # (Auto) 0.0 Baso # (Auto) 0.0 Sodium 132 L Potassium 3.4 L Chloride 91 L Carbon Dioxide 31 H Anion Gap 13.4 BUN 40 H D Creatinine 1.50 H Estimated Creat Clear 38 Estimated GFR 47 L Est GFR ( Amer) 57 L Glucose 149 H Calcium 9.0 Magnesium 1.8 D Total Bilirubin 0.3 AST 102 H ALT 44 Alkaline Phosphatase 60 Total Protein 6.6 Albumin 3.8 Globulin 2.8 Albumin/Globulin Ratio 1.4 Triglycerides 210 H Cholesterol 206 H LDL Cholesterol Direct 96.32 L VLDL Cholesterol 42 H HDL Cholesterol 51 Cholesterol/HDL Ratio 4.0 H DS: Diagnosis Discharge Diagnosis (1) Influenza A (H1N1): Status: Acute Code(s): J10.1 - Influenza due to other identified influenza virus with other respiratory manifestations (2) NSTEMI (non-ST elevated myocardial infarction): Status: Acute Code(s): I21.4 - Non-ST elevation (NSTEMI) myocardial infarction (3) Anxiety: Status: Acute Code(s): F41.9 - Anxiety disorder, unspecified (4) COPD (chronic obstructive pulmonary disease): Status: Acute Code(s): J44.9 - Chronic obstructive pulmonary disease, unspecified Qualifiers: COPD type: emphysema Emphysema type: unspecified Qualified Code(s): J43.9 - Emphysema, unspecified (5) Smoking greater than 30 pack years: Status: Acute Code(s): F17.210 - Nicotine dependence, cigarettes, uncomplicated (6) Pulmonary emphysema: Status: Acute Code(s): J43.9 - Emphysema, unspecified Qualifiers: Emphysema type: centrilobular Qualified Code(s): J43.2 - Centrilobular emphysema (7) Hyponatremia: Status: Acute Code(s): E87.1 - Hypo-osmolality and hyponatremia (8) DORIAN (acute kidney injury): Status: Acute Code(s): N17.9 - Acute kidney failure, unspecified (9) Benzodiazepine abuse: Status: Acute Code(s): F13.10 - Sedative, hypnotic or anxiolytic abuse, uncomplicated Meds Home Medications and Allergies Home Medications ?Medication ?Instructions ?Recorded ?Confirmed ?Type aspirin 81 mg tablet,delayed 81 mg PO DAILY 30 days #30 tabs 11/16/24 Rx release atorvastatin 40 mg tablet 40 mg PO HS 30 days #30 tabs 11/16/24 Rx clopidogrel 75 mg tablet 75 mg PO DAILY 30 days #30 tabs 11/16/24 Rx metoprolol succinate 25 mg 25 mg PO DAILY 30 days #30 tabs 11/16/24 Rx tablet,extended release 24 hr ondansetron 4 mg disintegrating 4 mg PO Q8H PRN nausea and 11/16/24 Rx tablet vomiting #10 tabs oseltamivir 6 mg/mL oral 30 mg (5 mL) PO BID 2 days #20 mL 11/16/24 Rx suspension (Tamiflu) New Prescriptions to Start Prescriptions: aspirin Bhupendra,Delta atorvastatin Bhupendra,Delta clopidogrel Bhupendra,Delta metoprolol succinate Bhupendra,Delta ondansetron Bhupendra,Delta oseltamivir [Tamiflu] Delta Huizar Allergies Allergy/AdvReac Type Severity Reaction Status Date / Time No Known Allergies Allergy Verified 04/28/24 13:40 Discharge Plan Disposition Patient Disposition: Home, Self-Care Condition: Fair Discharge Order Discharge Orders: Discharge Order (Routine); Ordered 11/16/24 Ordered By: Delta Huizar Follow up Plan Follow up with: Trevor Elizalde PA [Physician [employer]] - 11/23/24 10:00 am Prescriptions/Medication Reconciliation: New atorvastatin 40 mg Tablet 40 mg PO HS 30 Days Qty: 30 0RF clopidogrel 75 mg Tablet 75 mg PO DAILY 30 Days Qty: 30 0RF aspirin 81 mg Tablet,Delayed Release (Dr/Ec) 81 mg PO DAILY 30 Days Qty: 30 0RF metoprolol succinate 25 mg Tablet Extended Release 24 Hr 25 mg PO DAILY 30 Days Qty: 30 0RF oseltamivir [Tamiflu] 6 mg/mL Suspension For Reconstitution 30 mg PO BID 2 Days Qty: 20 0RF ondansetron 4 mg tablet,disintegrating 4 mg PO Q8H PRN (Reason: nausea and vomiting) Qty: 10 0RF Problem Reconciliation Problems Reviewed?: Yes Patient Discharge Instructions Patient Instructions: DI for Heart Attack, Chronic Obstructive Pulmonary Disease, Acute Kidney Injury, DI for H1N1 Influenza -- Adult Print Language: Tamazight Providers Primary Care Provider: Provider,Referral Admit Provider: Ramirez Johnson Attending Provider: Ramirez Johnson
--- NOTE | 2024-11-16 12:43 | PC.NURSE ---
pt given d/c instructions, awaiting ride at this time.
--- NOTE | 2024-11-16 15:19 | CARE MANAGER ---
Laboratory Results - last 72 hr 11/13/24 11/13/24 11/13/24 15:05 17:20 20:00 WBC RBC Hgb Hct MCV MCH MCHC RDW Plt Count MPV Neut % (Auto) Lymph % (Auto) [place] % (Auto) Eos % (Auto) Baso % (Auto) Neut # (Auto) Lymph # (Auto) [place] # (Auto) Eos # (Auto) Baso # (Auto) Sodium Potassium Chloride Carbon Dioxide Anion Gap BUN Creatinine Estimated Creat Clear Estimated GFR Est GFR ( Amer) Glucose Calcium Magnesium Total Bilirubin AST ALT Alkaline Phosphatase Troponin I 0.34 H 0.35 H Total Protein Albumin Globulin Albumin/Globulin Ratio Triglycerides Cholesterol LDL Cholesterol Direct VLDL Cholesterol HDL Cholesterol Cholesterol/HDL Ratio Chlamy pneumoniae PCR Not detected Adenovirus (PCR) Not detected B. pertussis DNA (PCR) Not detected Coronavirus OC43 (PCR) Not detected Coronavirus HKU1 (PCR) Not detected Coronavirus 229E (PCR) Not detected SARS-CoV-2 (PCR) Not detected Coronavirus NL63 (PCR) Not detected Human Metapneumovir PCR Not detected Influenza A (H1) PCR Not detected Influ A (H1N1/09) PCR Detected A Influenza A (H3) PCR Not detected Influenza Type A (PCR) Not detected Influenza Type B (PCR) Not detected M. pneumoniae (PCR) Not detected Parainfluenza 1 (PCR) Not detected Parainfluenza 2 (PCR) Not detected Parainfluenza 3 (PCR) Not detected Parainfluenza 4 (PCR) Not detected RSV (PCR) Not detected Entero/Rhino (PCR) Not detected 11/14/24 11/15/24 11/16/24 06:53 06:35 05:29 WBC 5.3 4.6 L 3.0 L D RBC 3.90 L 4.65 4.62 Hgb 11.7 L 13.8 L D 13.7 L Hct 35.1 L 41.4 L 40.8 L MCV 90.0 89.0 88.3 MCH 30.0 30.3 29.7 MCHC 33.3 34.1 33.6 RDW 12.6 12.6 12.7 Plt Count 146 158 128 L MPV 11.2 H 11.2 H 11.6 H Neut % (Auto) 86.7 H 45.1 77.2 Lymph % (Auto) 7.4 L 13.9 10.7 [place] % (Auto) 4.7 8.5 11.4 H Eos % (Auto) 0.2 31.4 H 0.0 L Baso % (Auto) 0.2 0.2 0.0 L Neut # (Auto) 4.6 2.1 2.3 Lymph # (Auto) 0.4 L 0.6 L 0.3 L [place] # (Auto) 0.3 0.4 0.3 Eos # (Auto) 0.0 1.4 H 0.0 Baso # (Auto) 0.0 0.0 0.0 Sodium 132 L 130 L 132 L Potassium 3.3 L 3.5 3.4 L Chloride 94 L 91 L 91 L Carbon Dioxide 29 29 31 H Anion Gap 12.3 13.5 13.4 BUN 27 H 30 H 40 H D Creatinine 1.10 1.40 H D 1.50 H Estimated Creat Clear 52 40 38 Estimated GFR 67 51 L 47 L Est GFR ( Amer) 82 62 D 57 L Glucose 132 H 125 H 149 H Calcium 8.5 8.8 9.0 Magnesium 1.3 L 2.1 D 1.8 D Total Bilirubin 0.3 0.4 0.3 AST 94 H 126 H D 102 H ALT 34 45 D 44 Alkaline Phosphatase 58 67 60 Troponin I 0.23 H Total Protein 6.7 7.2 6.6 Albumin 3.9 4.2 3.8 Globulin 2.8 3.0 2.8 Albumin/Globulin Ratio 1.4 1.4 1.4 Triglycerides 210 H Cholesterol 206 H LDL Cholesterol Direct 96.32 L VLDL Cholesterol 42 H HDL Cholesterol 51 Cholesterol/HDL Ratio 4.0 H Chlamy pneumoniae PCR Adenovirus (PCR) B. pertussis DNA (PCR) Coronavirus OC43 (PCR) Coronavirus HKU1 (PCR) Coronavirus 229E (PCR) SARS-CoV-2 (PCR) Coronavirus NL63 (PCR) Human Metapneumovir PCR Influenza A (H1) PCR Influ A (H1N1/) PCR Influenza A (H3) PCR Influenza Type A (PCR) Influenza Type B (PCR) M. pneumoniae (PCR) Parainfluenza 1 (PCR) Parainfluenza 2 (PCR) Parainfluenza 3 (PCR) Parainfluenza 4 (PCR) RSV (PCR) Entero/Rhino (PCR) Vitals 11/13/24 13:35 11/13/24 14:00 11/13/24 14:00 Temperature 98.7 F Pulse Rate 99 H Pulse Rate [Right] 103 H Respiratory Rate 20 Blood Pressure [Right Arm] 155/93 H 02 Sat by Pulse Oximetry 94 L 94 L Oxygen Delivery Method Room Air Room Air Oxygen Flow Rate (LPM) 11/13/24 14:00 11/13/24 14:36 11/13/24 15:00 Temperature Pulse Rate 101 H Pulse Rate [Right] Respiratory Rate Blood Pressure [Right Arm] 02 Sat by Pulse Oximetry Oxygen Delivery Method Room Air Room Air Oxygen Flow Rate (LPM) 11/13/24 15:44 11/13/24 16:00 11/13/24 17:00 Temperature 99.3 F Pulse Rate 100 H Pulse Rate [Right] 100 H Respiratory Rate 18 Blood Pressure [Right Arm] 124/78 02 Sat by Pulse Oximetry 95 Oxygen Delivery Method Room Air Room Air Oxygen Flow Rate (LPM) 11/13/24 18:42 11/13/24 20:00 11/13/24 20:00 Temperature 98.3 F Pulse Rate 100 H Pulse Rate [Right] 92 H Respiratory Rate 16 Blood Pressure [Right Arm] 133/90 02 Sat by Pulse Oximetry 97 Oxygen Delivery Method Room Air Room Air Oxygen Flow Rate (LPM) 11/13/24 20:00 11/13/24 21:00 11/13/24 23:00 Temperature Pulse Rate Pulse Rate [Right] Respiratory Rate Blood Pressure [Right Arm] 02 Sat by Pulse Oximetry Oxygen Delivery Method Room Air Room Air Room Air Oxygen Flow Rate (LPM) 11/13/24 23:17 11/13/24 23:17 11/13/24 23:17 Temperature Pulse Rate 81 87 Pulse Rate [Right] Respiratory Rate Blood Pressure [Right Arm] 02 Sat by Pulse Oximetry Oxygen Delivery Method Room Air Oxygen Flow Rate (LPM) 11/14/24 00:00 11/14/24 00:02 11/14/24 00:44 Temperature 100.0 F H Pulse Rate 120 H Pulse Rate [Right] 108 H Respiratory Rate 18 Blood Pressure [Right Arm] 137/77 02 Sat by Pulse Oximetry 94 L Oxygen Delivery Method Room Air Room Air Oxygen Flow Rate (LPM) 11/14/24 03:00 11/14/24 04:00 11/14/24 04:00 Temperature 99.0 F Pulse Rate 90 Pulse Rate [Right] 100 H Respiratory Rate Blood Pressure [Right Arm] 115/60 02 Sat by Pulse Oximetry 97 Oxygen Delivery Method Room Air Room Air Oxygen Flow Rate (LPM) 11/14/24 04:56 11/14/24 06:03 11/14/24 06:03 Temperature Pulse Rate 98 H Pulse Rate [Right] Respiratory Rate Blood Pressure [Right Arm] 02 Sat by Pulse Oximetry 95 Oxygen Delivery Method Nasal Cannula Room Air Oxygen Flow Rate (LPM) 1 11/14/24 06:03 11/14/24 06:47 11/14/24 07:57 Temperature 98.8 F Pulse Rate 94 H Pulse Rate [Right] 110 H Respiratory Rate 18 Blood Pressure [Right Arm] 126/81 02 Sat by Pulse Oximetry 96 Oxygen Delivery Method Nasal Cannula Oxygen Flow Rate (LPM) 2 11/14/24 08:00 11/14/24 09:00 11/14/24 09:04 Temperature Pulse Rate 110 H Pulse Rate [Right] Respiratory Rate Blood Pressure [Right Arm] 02 Sat by Pulse Oximetry Oxygen Delivery Method Nasal Cannula Room Air Oxygen Flow Rate (LPM) 2 11/14/24 11:00 11/14/24 11:26 11/14/24 11:51 Temperature 98.7 F Pulse Rate Pulse Rate [Right] 127 H Respiratory Rate 18 Blood Pressure [Right Arm] 143/99 H 02 Sat by Pulse Oximetry 95 94 L Oxygen Delivery Method Nasal Cannula Room Air Room Air Oxygen Flow Rate (LPM) 2 11/14/24 12:00 11/14/24 13:00 11/14/24 15:00 Temperature Pulse Rate 120 H Pulse Rate [Right] Respiratory Rate Blood Pressure [Right Arm] 02 Sat by Pulse Oximetry Oxygen Delivery Method Room Air Room Air Oxygen Flow Rate (LPM) 11/14/24 16:00 11/14/24 16:00 11/14/24 17:00 Temperature 99.7 F H Pulse Rate 100 H Pulse Rate [Right] 102 H Respiratory Rate 18 Blood Pressure [Right Arm] 129/76 02 Sat by Pulse Oximetry 95 Oxygen Delivery Method Room Air Room Air Oxygen Flow Rate (LPM) 11/14/24 18:08 11/14/24 18:08 11/14/24 18:49 Temperature Pulse Rate 104 H 102 H Pulse Rate [Right] Respiratory Rate Blood Pressure [Right Arm] 02 Sat by Pulse Oximetry Oxygen Delivery Method Room Air Oxygen Flow Rate (LPM) 11/14/24 20:00 11/14/24 20:00 11/14/24 20:00 Temperature 100.2 F H Pulse Rate 100 H Pulse Rate [Right] 99 H Respiratory Rate 16 Blood Pressure [Right Arm] 127/75 02 Sat by Pulse Oximetry 96 94 L Oxygen Delivery Method Room Air Room Air Oxygen Flow Rate (LPM) 11/14/24 20:44 11/14/24 23:00 11/14/24 23:12 Temperature Pulse Rate 90 Pulse Rate [Right] Respiratory Rate Blood Pressure [Right Arm] 02 Sat by Pulse Oximetry Oxygen Delivery Method Room Air Room Air Oxygen Flow Rate (LPM) 11/14/24 23:12 11/15/24 00:00 11/15/24 00:00 Temperature 98.4 F Pulse Rate 88 100 H Pulse Rate [Right] 100 H Respiratory Rate 16 Blood Pressure [Right Arm] 119/62 02 Sat by Pulse Oximetry 94 L Oxygen Delivery Method Room Air Oxygen Flow Rate (LPM) 11/15/24 00:00 11/15/24 01:00 11/15/24 02:59 Temperature Pulse Rate Pulse Rate [Right] Respiratory Rate Blood Pressure [Right Arm] 02 Sat by Pulse Oximetry 94 L Oxygen Delivery Method Room Air Room Air Room Air Oxygen Flow Rate (LPM) 11/15/24 04:00 11/15/24 04:00 11/15/24 05:00 Temperature 99.4 F Pulse Rate 90 Pulse Rate [Right] 92 H Respiratory Rate 16 Blood Pressure [Right Arm] 116/63 02 Sat by Pulse Oximetry 96 Oxygen Delivery Method Room Air Room Air Oxygen Flow Rate (LPM) 11/15/24 06:27 11/15/24 06:27 11/15/24 06:31 Temperature Pulse Rate 87 80 Pulse Rate [Right] Respiratory Rate Blood Pressure [Right Arm] 02 Sat by Pulse Oximetry Oxygen Delivery Method Room Air Oxygen Flow Rate (LPM) 11/15/24 08:00 11/15/24 08:00 11/15/24 08:00 Temperature 98.7 F Pulse Rate 100 H Pulse Rate [Right] 97 H Respiratory Rate 18 Blood Pressure [Right Arm] 104/68 L 02 Sat by Pulse Oximetry 95 96 Oxygen Delivery Method Room Air Room Air Oxygen Flow Rate (LPM) 11/15/24 09:00 11/15/24 11:00 11/15/24 12:00 Temperature 98.7 F Pulse Rate Pulse Rate [Right] 92 H Respiratory Rate 16 Blood Pressure [Right Arm] 103/68 L 02 Sat by Pulse Oximetry 95 Oxygen Delivery Method Room Air Room Air Room Air Oxygen Flow Rate (LPM) 11/15/24 12:00 11/15/24 13:00 11/15/24 15:00 Temperature Pulse Rate 110 H Pulse Rate [Right] Respiratory Rate Blood Pressure [Right Arm] 02 Sat by Pulse Oximetry Oxygen Delivery Method Room Air Room Air Oxygen Flow Rate (LPM) 11/15/24 16:00 11/15/24 16:00 11/15/24 17:00 Temperature 97.8 F Pulse Rate 80 Pulse Rate [Right] 90 Respiratory Rate 16 Blood Pressure [Right Arm] 114/70 02 Sat by Pulse Oximetry 95 Oxygen Delivery Method Room Air Room Air Oxygen Flow Rate (LPM) 11/15/24 18:25 11/15/24 18:25 11/15/24 18:43 Temperature Pulse Rate 96 H 95 H Pulse Rate [Right] Respiratory Rate Blood Pressure [Right Arm] 02 Sat by Pulse Oximetry Oxygen Delivery Method Room Air Oxygen Flow Rate (LPM) 11/15/24 19:45 11/15/24 19:57 11/15/24 19:58 Temperature 99.6 F Pulse Rate Pulse Rate [Right] 116 H Respiratory Rate 17 Blood Pressure [Right Arm] 87/59 L 80/56 L 87/42 L 02 Sat by Pulse Oximetry 94 L Oxygen Delivery Method Room Air Oxygen Flow Rate (LPM) 11/15/24 20:00 11/15/24 20:00 11/15/24 21:00 Temperature Pulse Rate 110 H Pulse Rate [Right] 110 H Respiratory Rate 19 Blood Pressure [Right Arm] 02 Sat by Pulse Oximetry 94 L Oxygen Delivery Method Room Air Room Air Oxygen Flow Rate (LPM) 11/15/24 21:46 11/15/24 22:15 11/15/24 23:00 Temperature Pulse Rate 154 H Pulse Rate [Right] 101 H Respiratory Rate 18 Blood Pressure [Right Arm] 02 Sat by Pulse Oximetry Oxygen Delivery Method Room Air Oxygen Flow Rate (LPM) 11/15/24 23:09 11/15/24 23:09 11/16/24 00:00 Temperature 97.8 F Pulse Rate 105 H 105 H Pulse Rate [Right] 110 H Respiratory Rate 18 Blood Pressure [Right Arm] 172/94 H 02 Sat by Pulse Oximetry 95 Oxygen Delivery Method Room Air Oxygen Flow Rate (LPM) 11/16/24 00:00 11/16/24 01:00 11/16/24 03:00 Temperature Pulse Rate 110 H Pulse Rate [Right] Respiratory Rate Blood Pressure [Right Arm] 02 Sat by Pulse Oximetry Oxygen Delivery Method Room Air Room Air Oxygen Flow Rate (LPM) 11/16/24 04:00 11/16/24 04:00 11/16/24 05:00 Temperature 97.9 F Pulse Rate 100 H Pulse Rate [Right] 91 H Respiratory Rate 18 Blood Pressure [Right Arm] 166/106 H 02 Sat by Pulse Oximetry 96 Oxygen Delivery Method Room Air Room Air Oxygen Flow Rate (LPM) 11/16/24 06:16 11/16/24 06:16 11/16/24 06:40 Temperature Pulse Rate 88 82 Pulse Rate [Right] Respiratory Rate Blood Pressure [Right Arm] 02 Sat by Pulse Oximetry Oxygen Delivery Method Room Air Oxygen Flow Rate (LPM) 11/16/24 07:57 11/16/24 08:00 11/16/24 08:00 Temperature 98.4 F Pulse Rate 100 H Pulse Rate [Right] 98 H Respiratory Rate 18 Blood Pressure [Right Arm] 147/107 H 02 Sat by Pulse Oximetry 96 96 Oxygen Delivery Method Room Air Room Air Oxygen Flow Rate (LPM) 11/16/24 09:00 11/16/24 10:37 11/16/24 11:48 Temperature 98 F Pulse Rate Pulse Rate [Right] 105 H Respiratory Rate 18 Blood Pressure [Right Arm] 95/64 L 02 Sat by Pulse Oximetry 96 Oxygen Delivery Method Room Air Room Air Room Air Oxygen Flow Rate (LPM) 11/16/24 12:00 11/16/24 12:43 Temperature Pulse Rate 100 H Pulse Rate [Right] Respiratory Rate Blood Pressure [Right Arm] 02 Sat by Pulse Oximetry Oxygen Delivery Method Room Air Oxygen Flow Rate (LPM)
--- NOTE | 2024-11-18 10:19 | SW/DCPLANNER ---
Phoned patient x2. Patients mailbox is full and cant except messages at this time. Jaden Jain
== END 2024-11-16 12:52 | disposition home or self-care (01) | DRG 281 ==
PROVIDERS: Physician Assistant; Admitting Provider Internal Medicine Adolescent Medicine; Visit Provider Internal Medicine Adolescent Medicine
DX: I21.4 Non-ST elevation (NSTEMI) myocardial infarction (principal); E87.1 Hypo-osmolality and hyponatremia; N17.9 Acute kidney failure, unspecified; J10.1 Influenza due to other identified influenza virus with other respiratory manifestations; F41.9 Anxiety disorder, unspecified; J44.9 Chronic obstructive pulmonary disease, unspecified; F17.210 Nicotine dependence, cigarettes, uncomplicated; I25.10 Atherosclerotic heart disease of native coronary artery without angina pectoris; J43.2 Centrilobular emphysema; F13.10 Sedative, hypnotic or anxiolytic abuse, uncomplicated; R91.8 Other nonspecific abnormal finding of lung field; Z82.49 Family history of ischemic heart disease and other diseases of the circulatory system; Z81.8 Family history of other mental and behavioral disorders; Z87.820 Personal history of traumatic brain injury; Z79.82 Long term (current) use of aspirin; Z79.899 Other long term (current) drug therapy; Z79.02 Long term (current) use of antithrombotics/antiplatelets
CPT/HCPCS: G0379; 36415; 80053; 80061; 83735; 84484; 85025; 87633; 93005; 93306; 94640; J1650; J1956; J2550; J3475; J7030; J7620

== ENCOUNTER 2024-11-28 16:50 | Observation (INO) | payer MEDICARE, SELFPAY ==
[2024-11-28] VITALS (9 sets, daily range): BP systolic 104–155; BP diastolic 61–105; PULSE 86–94; RESP 14–21; TEMP 36.7–37.1; O2SAT 92–98; BMI 19.1; BMI 17.8
--- NOTE | 2024-11-28 17:12 | XR_ITS ---
PROCEDURE INFORMATION: Exam: XR Chest Exam date and time: 11/28/2024 5:18 PM Age: 64 years old Clinical indication: Shortness of breath TECHNIQUE: Imaging protocol: Radiologic exam of the chest. Views: 1 view. COMPARISON: DX CHEST SINGLE VIEW/PORTABLE 11/13/2024 9:08 AM FINDINGS: Lungs: The lungs are hyperinflated. Chronic interstitial opacities. No focal consolidation. Pleural spaces: Unremarkable. No pleural effusion. No pneumothorax. Heart/Mediastinum: Unremarkable. No cardiomegaly. Diaphragm: Flattening of the hemidiaphragms. Bones/joints: Unremarkable. IMPRESSION: 1. No acute disease. 2. Pulmonary hyperinflation and chronic appearing interstitial opacities, suspicious for COPD.
--- NOTE | 2024-11-28 17:12 | ECG_ITS ---
APPROVED REPORT Exam: Resting ECG HR:81 bpm ECG Measurements Heart Rate 81 AXES AR 140 P 92 QRSd 84 QRS 79 QT 357 T 66 QTc 395 Conclusion SINUS RHYTHM Electronically signed by : DWIGHT AVLAREZ, 11/28/2024 23:39:25
[2024-11-28 17:20] LABS: Lactate Venous 1.3 mmol/L (0.4-2.0); VBG HCO3 24.4 mmol/L (23-30); VBG PCO2 32.8 mmol/L (35-51); VBG PH 7.49 mmol/L (7.31-7.41); VBG PO2 107.1 mmol/L (28-40); VBG Total CO2 25.4 mmol/L (23-27)
[2024-11-28 17:20] LABS: Basophils % 0.2 % (0.1-2.0); Eosinophils % 0.5 % (0.1-12.0); Hematocrit 37.9 % (42.0-52.0); Hemoglobin 12.5 g/dL (14.1-18.0); Lymphocytes # 1.2 K/mm3 (0.7-4.5); Lymphocytes % 13.6 % (10-50); Mean Corpuscular Hemoglobin 29.8 pg (27.0-31.2); Mean Corpuscular Volume 90.5 fl (80-94); Mean Platelet Volume 9.9 fl (7.4-10.4); Monocytes # 0.5 K/mm3 (0.1-1.0); Monocytes % 5.3 % (1.7-9.3); Neutrophils # 6.8 K/mm3 (1.8-7.8); Neutrophils % 79.9 % (37.0-80.0); Platelet Count 384 K/mm3 (142-424); Red Blood Count 4.19 M/mm3 (4.60-6.20); Red Cell Distribution Width 12.5 % (11.5-17.5); White Blood Count 8.5 K/mm3 (4.8-10.8)
--- NOTE | 2024-11-28 17:22 | PC.NURSE ---
PT TO XR
[2024-11-28 17:24] LABS: Albumin Level 4.2 g/dl (3.5-5.0); Chloride 100 mmol/L (98-107); Potassium 4.8 mmoL/L (3.5-5.1); Sodium 132 mmol/L (136-145)
[2024-11-28 17:27] LABS: Alanine Aminotransferase 30 U/L (12-78); Albumin/Globulin Ratio 1.4 (1.1-1.8); Alkaline Phosphatase 48 U/L (38-126); Anion Gap 10.8 mEq/L (5-15); Aspartate Amino Transferase 67 U/L (17-59); Bilirubin,Total 1.3 mg/dl (0.2-1.3); Blood Urea Nitrogen 30 mg/dl (9-20); Calcium 8.8 mg/dl (8.4-10.2); Carbon Dioxide 26 mmol/L (22.0-30.0); Creatinine Clearance Estimated 53 mL/min (50-200); Estimated Glomerular Filt Rate 67 ml/min (>60); GFR (African American) 82 ML/MIN (>60); Globulin 3.1 g/dL (1.3-3.2); Glucose 112 mg/dl (74-100); Total Protein,Serum 7.3 g/dl (6.3-8.2)
--- NOTE | 2024-11-28 17:27 | HMH.EDGENADL ---
Discharge Plan Disposition Patient Disposition: Admitted Condition: Good Clinical Impressions Clinical Impression: Exacerbation of reactive airway disease Discharge ED Provider: Sam Tanner Adult HPI General Chief complaint: Shortness of Breath/Dyspnea Stated complaint: SHORTNESS OF BREATH Time Seen by Provider: 11/28/24 17:27 Mode of Arrival: EMS Description of Symptoms (Recalled from ER Triage Doc. by RN): PT BROUGHT VIA [facility] FOR SHORTNESS OF BREATH X 2-3 WEEKS. PT REPORTS ONGOING SHORTNESS OF BREATH PRIOR TO PREVIOUS ADMISSION. REPORTS INCREASED SHORTNESS OF BREATH ON EXERTION History of Present Illness HPI narrative: Patient presents for evaluation of shortness of breath gradual in onset, constant, worsening, no associated hemoptysis, chest pain, syncope or presyncope. Patient does not wear oxygen at home. He was recently admitted for influenza and suspected NSTEMI. No sick contacts. No recent travel. No leg pain or leg swelling. Please note that above description of symptoms, in this electronic medical record under categorization of recalled from ER triage doctor by RN are reflective of an initial nursing assessment, however, is not reflective of my full history and physical exam that was personally taken and clarified. Consequentially, this preceding description of symptoms, which may include the patient's categorized chief complaint in the EMR, do not reflect my personal clinical impression, and the ultimate description of history of present illness and patient stated complaints should be deferred to this section of the note. Unless stated otherwise or congruent with this section of the note, additional signs, symptoms, or incongruence should be interpreted as inaccurate with my clinical impression. Related Data Previous Rx's ?Medication ?Instructions ?Recorded aspirin 81 mg tablet,delayed 81 mg PO DAILY 30 days #30 tabs 11/16/24 release atorvastatin 40 mg tablet 40 mg PO HS 30 days #30 tabs 11/16/24 clopidogrel 75 mg tablet 75 mg PO DAILY 30 days #30 tabs 11/16/24 metoprolol succinate 25 mg 25 mg PO DAILY 30 days #30 tabs 11/16/24 tablet,extended release 24 hr Allergies Allergy/AdvReac Type Severity Reaction Status Date / Time No Known Allergies Allergy Verified 04/28/24 13:40 [facility] Disclaimer: The information contained in this section may have been updated after the patient was seen, as this information can be updated by other users. Medical History Migraine Depression TBI (traumatic brain injury) Multiple lung nodules on CT Smoking greater than 30 pack years Pulmonary emphysema Dyspnea on exertion Acute respiratory failure with hypoxia Atypical pneumonia Subdural hematoma Surgical History H/O hemorrhoidectomy Hx of brain surgery Family History Mother Alzheimer's dementia Father Coronary artery disease Heart attack Brother Heart attack Son Overdose Social History (Updated 11/28/24 @ 22:16 by Kassandra Sanchez RN) Smoking Status: Current some day smoker alcohol intake: former substance use type: marijuana current occupational status: disabled Travel in the last 8 weeks: None household members: family housing: house Have you lived/traveled outside US in past 30 days?: No Contact w/someone who lives/traveled outside US past 30 days?: No Exposure to someone with infectious disease in past 14 days?: No Do you have a fever (greater than 100.4 F or 38 C)?: No Have you tested positive for COVID-19: No Exposed to someone with COVID-19 in past 14 days?: No Do you have a sore throat?: No Do you have a cough?: No Do you have any weakness?: No Do you have any diarrhea?: No Are you experiencing any unusual bleeding?: No Do you have any muscle aches/pain?: No Do you have any abdominal pain?: No Are you experiencing loss of taste or smell?: No Other Medical History Have you received the Flu Vaccine for this season: No Have you received the Pneumonia Vaccine: No ROS Obtained: Yes other As per HPI Physical Exam General General appearance: alert and in no apparent distress Head Head exam: atraumatic and normocephalic Eye Eye exam: Present normal appearance Neck Neck exam: Present normal inspection Chest Chest inspection: Present normal inspection and symmetric chest wall rise Respiratory Respiratory exam: Present wheezes and accessory muscle use Cardiovascular Cardiovascular exam: Present regular rate and normal rhythm Abdominal Exam Abdominal exam: Present soft Neurological Exam Neurological exam: Present alert and oriented X3 Psychiatric Psychiatric exam: Present normal affect and normal mood Skin Skin exam: Present warm and dry Medical Decision Making Medical Records Medical records reviewed: Yes I reviewed the patient's medical records. Screening: Per USPSTF and CDC recommendations, given the prevalence of disease in our region, it is our hospital?s policy to screen for HIV and viral Hepatitis for all patients aged 18 and over and those with ongoing risk factors. Bernardo Inquiry Pt receiving controlled substance: No Vital Signs: 11/28/24 16:49 11/28/24 18:01 11/28/24 19:00 Temperature 98.6 F Temperature Source Oral Pulse Rate 89 Pulse Rate [Apical] 89 Respiratory Rate 18 21 19 Blood Pressure 125/93 H 108/72 L Blood Pressure [Right Arm] 155/105 H Blood Pressure Mean [Right Arm] 121 Blood Pressure Source [Right Arm] Automatic Cuff Blood Pressure Position [Right Arm] Sitting 02 Sat by Pulse Oximetry 97 95 Oxygen Delivery Method Room Air 11/28/24 19:31 11/28/24 20:00 11/28/24 20:15 Temperature Temperature Source Pulse Rate 87 86 Pulse Rate [Apical] Respiratory Rate 19 21 14 Blood Pressure 111/75 116/80 116/80 Blood Pressure [Right Arm] Blood Pressure Mean [Right Arm] Blood Pressure Source [Right Arm] Blood Pressure Position [Right Arm] 02 Sat by Pulse Oximetry 93 L 92 L Oxygen Delivery Method 11/28/24 20:59 Temperature 98.7 F Temperature Source Oral Pulse Rate 86 Pulse Rate [Apical] Respiratory Rate 20 Blood Pressure 116/80 Blood Pressure [Right Arm] Blood Pressure Mean [Right Arm] Blood Pressure Source [Right Arm] Blood Pressure Position [Right Arm] 02 Sat by Pulse Oximetry Oxygen Delivery Method Lab Data Lab Results 11/28/24 11:32: SARS-CoV-2 (PCR) Not detected, Influenza A Untype (PCR) Not detected, Influenza Type B (PCR) Not detected 11/28/24 17:07: WBC 8.5, RBC 4.19 L, Hgb 12.5 L, Hct 37.9 L, MCV 90.5, MCH 29.8, MCHC 33.0, RDW 12.5, Plt Count 384, MPV 9.9, Neut % (Auto) 79.9, Lymph % (Auto) 13.6, [place] % (Auto) 5.3, Eos % (Auto) 0.5, Baso % (Auto) 0.2, Neut # (Auto) 6.8, Lymph # (Auto) 1.2, [place] # (Auto) 0.5, Eos # (Auto) 0.0, Baso # (Auto) 0.0, Sodium 132 L, Potassium 4.8, Chloride 100, Carbon Dioxide 26, Anion Gap 10.8, BUN 30 H, Creatinine 1.10, Estimated Creat Clear 53, Estimated GFR 67, Est GFR ( Amer) 82, Glucose 112 H, Calcium 8.8, Total Bilirubin 1.3, AST 67 H, ALT 30, Alkaline Phosphatase 48, Troponin I < 0.01, Total Protein 7.3, Albumin 4.2, Globulin 3.1, Albumin/Globulin Ratio 1.4, HCV Ab OZ w/Rflx PCR Qn Negative, HIV Ag/Ab Combo Qual Negative 11/28/24 17:12: VBG pH 7.49 H, VBG pCO2 32.8 L, VBG pO2 107.1 H, VBG HCO3 24.4, VBG Total CO2 25.4, VBG O2 Saturation 98.0 H, VBG Base Excess 1.0, VBG Lactic Acid 1.3 11/28/24 19:59: Troponin I < 0.01 11/28/24 17:07 11/28/24 17:07 Orders (Tests/Meds): ED MEDICATIONS Generic Name Dose Route Start Last Admin Trade Name Freq PRN Reason Stop Dose Admin Acetaminophen 650 mg 11/28/24 21:21 Acetaminophen 325mg Tab PO 12/28/24 21:20 Q4HP PRN Fever or Mild Pain (1-3) Albuterol/Ipratropium 3 ml 11/28/24 23:00 11/28/24 23:40 Ipratropium/Albuterol 3 Ml Neb IH 12/28/24 22:59 3 ml Q6 LENORE Administration Enoxaparin Sodium 40 mg 11/29/24 09:00 Enoxaparin 40mg/0.4ml Syringe SUBCUT 12/29/24 08:59 DAILY LENORE Methylprednisolone Sodium Succinate 40 mg 11/29/24 09:00 Methylprednisolone Sod Succ 40mg Vial IV 12/29/24 08:59 BID LENORE Nicotine 21 mg 11/28/24 21:49 Nicotine 21mg/24hr Patch TD 12/28/24 21:48 DAILYP PRN Nicotine Cravings Ondansetron HCl 4 mg 11/28/24 21:21 Ondansetron 4mg/2ml Vial IV 12/28/24 21:20 Q8HP PRN Nausea Discontinued Medications Generic Name Dose Route Start Last Admin Trade Name Freq PRN Reason Stop Dose Admin Albuterol/Ipratropium 3 ml 11/28/24 17:12 11/28/24 17:30 Ipratropium/Albuterol 3 Ml Neb IH 11/28/24 17:13 3 ml ONCE ONE Administration Methylprednisolone Sodium Succinate 80 mg 11/28/24 17:39 11/28/24 18:13 Methylprednisolone Sod Succ 125mg Vial IV 11/28/24 17:40 80 mg ONCE ONE Administration ORDERS Category Date Time Status XR chest portable Stat Exams 11/28/24 17:12 Completed Complete Blood Count Auto Diff Stat Lab 11/28/24 17:07 Completed Comprehensive Metabolic Panel Stat Lab 11/28/24 17:07 Completed HIV Combo Stat Lab 11/28/24 17:07 Completed Hepatitis C Ab Qual. W/ RFX Stat Lab 11/28/24 17:07 Completed Rapid PCR Covid and Flu A/B Stat Lab 11/28/24 11:32 Completed Troponin I Q3H Lab 11/28/24 19:59 Completed Troponin I Q3H Lab 11/28/24 23:15 Ordered Troponin I Stat Lab 11/28/24 17:07 Completed Venous Blood Gas Stat RT 11/28/24 17:12 Completed Medical Decision Narrative: Patient with history and exam per above presenting for evaluation of shortness of breath Diagnoses considered include COPD exacerbation, COVID, influenza, CHF, ACS, among others ED workup and treatment included: ED MEDICATIONS Generic Name Dose Route Start Last Admin Trade Name Jennifer PRN Reason Stop Dose Admin Acetaminophen 650 mg 11/28/24 21:21 Acetaminophen 325mg Tab PO 12/28/24 21:20 Q4HP PRN Fever or Mild Pain (1-3) Albuterol/Ipratropium 3 ml 11/28/24 23:00 11/28/24 23:40 Ipratropium/Albuterol 3 Ml Neb 12/28/24 22:59 3 ml Q6 LENORE Administration Enoxaparin Sodium 40 mg 11/29/24 09:00 Enoxaparin 40mg/0.4ml Syringe SUBCUT 12/29/24 08:59 DAILY LENORE Methylprednisolone Sodium Succinate 40 mg 11/29/24 09:00 Methylprednisolone Sod Succ 40mg Vial IV 12/29/24 08:59 BID LENORE Nicotine 21 mg 11/28/24 21:49 Nicotine 21mg/24hr Patch TD 12/28/24 21:48 DAILYP PRN Nicotine Cravings Ondansetron HCl 4 mg 11/28/24 21:21 Ondansetron 4mg/2ml Vial IV 12/28/24 21:20 Q8HP PRN Nausea Discontinued Medications Generic Name Dose Route Start Last Admin Trade Name Freq PRN Reason Stop Dose Admin Albuterol/Ipratropium 3 ml 11/28/24 17:12 11/28/24 17:30 Ipratropium/Albuterol 3 Ml Neb IH 11/28/24 17:13 3 ml ONCE ONE Administration Methylprednisolone Sodium Succinate 80 mg 11/28/24 17:39 11/28/24 18:13 Methylprednisolone Sod Succ 125mg Vial IV 11/28/24 17:40 80 mg ONCE ONE Administration ORDERS Category Date Time Status XR chest portable Stat Exams 11/28/24 17:12 Completed Complete Blood Count Auto Diff Stat Lab 11/28/24 17:07 Completed Comprehensive Metabolic Panel Stat Lab 11/28/24 17:07 Completed HIV Combo Stat Lab 11/28/24 17:07 Completed Hepatitis C Ab Qual. W/ RFX Stat Lab 11/28/24 17:07 Completed Rapid PCR Covid and Flu A/B Stat Lab 11/28/24 11:32 Completed Troponin I Q3H Lab 11/28/24 19:59 Completed Troponin I Q3H Lab 11/28/24 23:15 Ordered Troponin I Stat Lab 11/28/24 17:07 Completed Venous Blood Gas Stat RT 11/28/24 17:12 Completed Labs were independently interpreted by me, significant for respiratory alkalosis, no leukocytosis Imaging was independently visualized and interpreted by me, significant for no acute findings on chest x-ray Please refer to radiology report for full details. Patient reports some improvement of symptoms however remains dyspneic and desats upon repeat evaluation with ambulation. For this reason he will be admitted to hospital medicine service. Critical Care Critical Care Time Critical Care Time: No
[2024-11-28] MEDS: IPRATROPIUM/ALBUTEROL 3 ML NEB IH ×2 (17:30→23:40)
[2024-11-28 17:37] LABS: Coronavirus 19, PCR Not Detected (NotDetected); Influenza A, PCR Not Detected (NotDetected); Influenza B, PCR Not Detected (NotDetected)
[2024-11-28 17:45] LABS: Troponin I < 0.01 ng/ml (0.00-0.034)
[2024-11-28] MEDS: METHYLPREDNISOLONE SOD SUCC 125MG VIAL 80 MG IV (18:13)
--- NOTE | 2024-11-28 19:51 | PC.NURSE ---
rounded on pt. pt given warm blanket, chicken salad sandwich and mt dew. call light in reach.
[2024-11-28 20:17] LABS: HIV Combo NEGATIVE (Negative)
[2024-11-28 20:26] LABS: Hepatitis C Ab Qual. W/ RFX NEGATIVE (Negative)
[2024-11-28 20:28] LABS: Troponin I < 0.01 ng/ml (0.00-0.034)
--- NOTE | 2024-11-28 21:09 | PC.NURSE ---
Ambulated Pt, pt while sitting was at 95% O2 when he got up he De sat'd into the low 80's pt couldnt walk more than 10 feet without feeling winded
--- NOTE | 2024-11-28 21:19 | P.HP_ITS ---
<Statement entered by Ramirez Johnson MD - 11/29/24 15:25> Rounded on patient after nurse practitioner. Personally examined and interviewed patient. Agree with exam findings and care plan as documented. History of Present Illness *Admission Date: 11/28/24 *Reason for visit:: Shortness of breath *History of present illness: A 64-year-old male patient past medical history of benzodiazepine abuse, COPD, anxiety, hypertension, tobacco dependence, and traumatic brain injury, was brought via [facility] for shortness of breath persisting for 2-3 weeks. The patient reports ongoing shortness of breath prior to a recent admission on 11/13/24 for COPD exacerbation and NSTEMI precipitated by influenza A, from which he was discharged on 11/17/24. Since discharge, he describes persistent shortness of breath, gradual in onset, constant, and worsening, particularly with ex ertion, without associated hemoptysis, chest pain, syncope, or presyncope. He does not use oxygen at home. On arrival, he was wheezing with a pulse oximetry reading of 88% on room air, improved after a nebulized breathing treatment and 80 mg IV Solu-Medrol. Labs show BUN 30 mg/dL, creatinine 1.10 mg/dL (GFR 67), sodium 132 mEq/L, AST 67 U/L, and glucose 112 mg/dL, with negative respiratory viral PCRs (SARS-CoV-2, influenza A/B). A venous blood gas (VBG) reveals pH 7.49, pCO2 32.8 mmHg, and O2 saturation 98% post-treatment. Troponin I remains <0.01 ng/mL. Chest X-ray demonstrates pulmonary hyperinflation and chronic interstitial opacities, suspicious for COPD, with no acute disease. The patient was initially planned for discharge but failed a walking test, reportedly desaturating to the mid-to-low 80s (unconfirmed), prompting admission. Additional history includes He is well-known to our facility. Admission is warranted for management of COPD exacerbation and monitoring of exertional hypoxia, given lack of home oxygen and recent cardiac history. [facility] Disclaimer: The information contained in this section may have been updated after the patient was seen, as this information can be updated by other users. Medical History Migraine Depression TBI (traumatic brain injury) Multiple lung nodules on CT Smoking greater than 30 pack years Pulmonary emphysema Dyspnea on exertion Acute respiratory failure with hypoxia Atypical pneumonia Subdural hematoma Surgical History H/O hemorrhoidectomy Hx of brain surgery Family History Mother Alzheimer's dementia Father Coronary artery disease Heart attack Brother Heart attack Son Overdose Social History Smoking Status: Current some day smoker alcohol intake: former substance use type: marijuana current occupational status: disabled Travel in the last 8 weeks: None household members: family housing: house Have you lived/traveled outside US in past 30 days?: No Contact w/someone who lives/traveled outside US past 30 days?: No Exposure to someone with infectious disease in past 14 days?: No Do you have a fever (greater than 100.4 F or 38 C)?: No Have you tested positive for COVID-19: No Exposed to someone with COVID-19 in past 14 days?: No Do you have a sore throat?: No Do you have a cough?: No Do you have any weakness?: No Do you have any diarrhea?: No Are you experiencing any unusual bleeding?: No Do you have any muscle aches/pain?: No Do you have any abdominal pain?: No Are you experiencing loss of taste or smell?: No Other Medical History Have you received the Flu Vaccine for this season: No Have you received the Pneumonia Vaccine: No Review of Systems Review of Systems Review of systems (narrative): Point review of systems negative except as listed in HPI Meds Home Medications and Allergies Home Medications ?Medication ?Instructions ?Recorded ?Confirmed ?Type aspirin 81 mg tablet,delayed 81 mg PO DAILY 30 days #30 tabs 11/16/24 11/28/24 Rx release atorvastatin 40 mg tablet 40 mg PO HS 30 days #30 tabs 11/16/24 11/28/24 Rx clopidogrel 75 mg tablet 75 mg PO DAILY 30 days #30 tabs 11/16/24 11/28/24 Rx metoprolol succinate 25 mg 25 mg PO DAILY 30 days #30 tabs 11/16/24 11/28/24 Rx tablet,extended release 24 hr New Prescriptions to Start Prescriptions: Allergies Allergy/AdvReac Type Severity Reaction Status Date / Time No Known Allergies Allergy Verified 04/28/24 13:40 Exam Data for Last 24 hours Vital signs and Labs for Last 24 Hours: Temp Pulse Resp BP Pulse Ox O2 Del Method 98.7 F 86 20 116/80 92 L Room Air 11/28/24 20:59 11/28/24 20:59 11/28/24 20:59 11/28/24 20:59 11/28/24 20:15 11/28/24 16:49 Laboratory Results - last 24 hr 11/28/24 11:32: SARS-CoV-2 (PCR) Not detected, Influenza A Untype (PCR) Not detected, Influenza Type B (PCR) Not detected 11/28/24 17:07: WBC 8.5, RBC 4.19 L, Hgb 12.5 L, Hct 37.9 L, MCV 90.5, MCH 29.8, MCHC 33.0, RDW 12.5, Plt Count 384, MPV 9.9, Neut % (Auto) 79.9, Lymph % (Auto) 13.6, [place] % (Auto) 5.3, Eos % (Auto) 0.5, Baso % (Auto) 0.2, Neut # (Auto) 6.8, Lymph # (Auto) 1.2, [place] # (Auto) 0.5, Eos # (Auto) 0.0, Baso # (Auto) 0.0, Sodium 132 L, Potassium 4.8, Chloride 100, Carbon Dioxide 26, Anion Gap 10.8, BUN 30 H, Creatinine 1.10, Estimated Creat Clear 53, Estimated GFR 67, Est GFR ( Amer) 82, Glucose 112 H, Calcium 8.8, Total Bilirubin 1.3, AST 67 H, ALT 30, Alkaline Phosphatase 48, Troponin I < 0.01, Total Protein 7.3, Albumin 4.2, Globulin 3.1, Albumin/Globulin Ratio 1.4, HCV Ab OZ w/Rflx PCR Qn Negative, HIV Ag/Ab Combo Qual Negative 11/28/24 17:12: VBG pH 7.49 H, VBG pCO2 32.8 L, VBG pO2 107.1 H, VBG HCO3 24.4, VBG Total CO2 25.4, VBG O2 Saturation 98.0 H, VBG Base Excess 1.0, VBG Lactic Acid 1.3 11/28/24 19:59: Troponin I < 0.01 I & O for Last 24 hours: Intake & Output 11/25/24 11/26/24 11/27/24 11/29/24 23:59 23:59 23:59 00:59 Weight 55.338 kg Constitutional Constitutional: no acute distress *Routine HEENT Exam Head: Present normocephalic Eye: Present EOMI and PERRL ENT: Present mucous membranes moist *Routine Neck Exam Neck: Present supple; Absent lymphadenopathy *Routine Respiratory Exam Respiratory: Present CTA bilaterally *Routine Cardiovascular Exam Cardiovascular: Present RRR *Routine Abdominal Exam Abdominal: Present soft and normoactive bowel sounds; Absent tenderness *Routine Rectal Exam Rectal:: deferred *Routine Genitalia Exam Genitalia:: deferred *Routine Extremities Exam Extremities: Absent cyanosis, clubbing or edema *Routine Skin Exam Skin: Present warm; Absent rash *Routine Neurological Exam Neurological: Present alert and oriented X3 Assessment and Plan *Assessment and plan (1) Exacerbation of reactive airway disease: Status: Acute Category: Medical Code(s): J45.901 - Unspecified asthma with (acute) exacerbation (2) Benzodiazepine abuse: Status: Acute Category: Medical Code(s): F13.10 - Sedative, hypnotic or anxiolytic abuse, uncomplicated (3) DORIAN (acute kidney injury): Status: Acute Category: Medical Code(s): N17.9 - Acute kidney failure, unspecified (4) Anxiety: Status: Acute Category: Medical Code(s): F41.9 - Anxiety disorder, unspecified (5) COPD (chronic obstructive pulmonary disease): Status: Acute Qualifiers: COPD type: emphysema Emphysema type: unspecified Qualified Code(s): J43.9 - Emphysema, unspecified Category: Medical Code(s): J44.9 - Chronic obstructive pulmonary disease, unspecified (6) Hypertension: Status: Acute Qualifiers: Hypertension type: unspecified Qualified Code(s): I10 - Essential (primary) hypertension Category: Medical Code(s): I10 - Essential (primary) hypertension (7) Dyspnea on exertion: Status: Acute Category: Medical Code(s): R06.09 - Other forms of dyspnea Plan * Chronic Obstructive Pulmonary Disease (COPD) Exacerbation: * Shortness of breath x 2-3 weeks, worse on exertion, wheezing, pulse ox 88%, X-ray with hyperinflation/opacities, failed walking test. * Continue nebulized albuterol/ipratropium q4-6h PRN wheezing. * Administer prednisone 40 mg IV BID assess for continued need after 1 day * Repeat 6-minute walk test prior to discharge. * Monitor respiratory status; escalate to BiPAP if hypoxia worsens. * Sports Trainer on smoking cessation; offer nicotine replacement therapy. * History of Non-ST Elevation Myocardial Infarction (NSTEMI): * Prior NSTEMI 11/13/24, troponin <0.01 now, no chest pain or acute cardiac symptoms. * Continue aspirin 81 mg PO daily (assumed from prior admission unless specified). * Monitor telemetry * Hypertension: * Historical diagnosis, currently mildly hypotensive. * Measure BP on admission; resume home antihypertensive if known if appropriate * Monitor electrolytes with BMP in 24 hours for hyponatremia due to history trend. * Tobacco Dependence and marijuana: * Ongoing, contributes to COPD severity. * Provide smoking cessation counseling and nicotine patch 21 mg/day * Sports Trainer cessation of smoking marijuana which patient continues * Benzodiazepine Abuse and Anxiety: * Historical, possible hyperventilation on VBG (pCO2 32.8). * Assess for withdrawal symptoms * Previous issue of benzodiazepine abuse, defer anxiolytics to be nonbenzodiazepine choices * Traumatic Brain Injury (TBI): * Historical, no acute neurologic symptoms. * No specific intervention; note for baseline neuro status. * Other Findings (Elevated BUN, AST, Glucose): * BUN 30, GFR 67 (mild renal impairment), AST 67 (hepatic stress), glucose 112. * Monitor renal function with BMP in 24 hours; received fluids in ER, continue to encourage p.o. intake * Disposition: * COPD exacerbation with hypoxia, recent NSTEMI, no home oxygen requiring inpatient management. * Admit to hospitalist service for COPD treatment and oxygen titration. * Subcu Lovenox for DVT prophylaxis, PPI for GI prophylaxis * Plan discharge with oxygen if walking test confirms need.
--- NOTE | 2024-11-28 21:40 | PC.NURSE ---
PAtient arrived to floor via wheelchair from ED at 21:34.
[2024-11-29] VITALS: BP 95/58; PULSE 88; RESP 18; TEMP 36.9; O2SAT 97
[2024-11-29 00:45] LABS: Troponin I < 0.01 ng/ml (0.00-0.034)
[2024-11-29 02:54] VITALS: PULSE 87
[2024-11-29 04:00] VITALS: BP 83/58; PULSE 81; RESP 18; TEMP 36.8; O2SAT 97; BMI 17.8
[2024-11-29 05:59] VITALS: PULSE 75; PULSE 77; O2SAT 98
[2024-11-29] MEDS: IPRATROPIUM/ALBUTEROL 3 ML NEB IH (06:01)
--- NOTE | 2024-11-29 06:37 | PC.NURSE ---
Pt is alert and oriented x4 and currently tolerating 2LNC well and sating @ 97%. Pt O2 saturation does decrease when pt ambulates. PT denies pain and needs when asked. Pt had had no acute changes to note this shift.
[2024-11-29 06:52] LABS: Basophils % 0.1 % (0.1-2.0); Eosinophils % 0.1 % (0.1-12.0); Hematocrit 33.6 % (42.0-52.0); Lymphocytes # 1.1 K/mm3 (0.7-4.5); Lymphocytes % 13.8 % (10-50); Mean Corpuscular HGB Conc 32.7 g/dL (31.8-35.4); Mean Corpuscular Hemoglobin 29.6 pg (27.0-31.2); Mean Corpuscular Volume 90.3 fl (80-94); Mean Platelet Volume 10.4 fl (7.4-10.4); Monocytes # 0.5 K/mm3 (0.1-1.0); Monocytes % 6.7 % (1.7-9.3); Neutrophils # 6.1 K/mm3 (1.8-7.8); Neutrophils % 78.7 % (37.0-80.0); Platelet Count 389 K/mm3 (142-424); Red Blood Count 3.72 M/mm3 (4.60-6.20); Red Cell Distribution Width 12.7 % (11.5-17.5); White Blood Count 7.8 K/mm3 (4.8-10.8)
[2024-11-29 07:00] LABS: Anion Gap 8.5 mEq/L (5-15); Blood Urea Nitrogen 30 mg/dl (9-20); Carbon Dioxide 29 mmol/L (22.0-30.0); Chloride 99 mmol/L (98-107); Creatinine Clearance Estimated 49 mL/min (50-200); Estimated Glomerular Filt Rate 67 ml/min (>60); GFR (African American) 82 ML/MIN (>60); Glucose 126 mg/dl (74-100); Potassium 4.5 mmoL/L (3.5-5.1); Sodium 132 mmol/L (136-145)
[2024-11-29 07:50] VITALS: BP 103/60; PULSE 85; RESP 20; TEMP 36.9; O2SAT 96
--- NOTE | 2024-11-29 08:02 | HMH.PHAINT1 ---
Pharmacy Intervention Comments: HOME MEDICATION LIST VERIFIED USING LIST FROM MOST RECENT [facility]OSPITAL[facility] AND LIST FROM OUTPATIENT PHARMACY
--- NOTE | 2024-11-29 08:21 | P.DS_ITS ---
General Admission date:: 11/28/24 Discharge date: 11/29/24 HPI HPI HPI: A 64-year-old male patient past medical history of benzodiazepine abuse, COPD, anxiety, hypertension, tobacco dependence, and traumatic brain injury, was brought via [facility] for shortness of breath persisting for 2-3 weeks. The patient reports ongoing shortness of breath prior to a recent admission on 11/13/24 for COPD exacerbation and NSTEMI precipitated by influenza A, from which he was discharged on 11/17/24. Since discharge, he describes persistent shortness of breath, gradual in onset, constant, and worsening, particularly with exe rtion, without associated hemoptysis, chest pain, syncope, or presyncope. He does not use oxygen at home. On arrival, he was wheezing with a pulse oximetry reading of 88% on room air, improved after a nebulized breathing treatment and 80 mg IV Solu-Medrol. Labs show BUN 30 mg/dL, creatinine 1.10 mg/dL (GFR 67), sodium 132 mEq/L, AST 67 U/L, and glucose 112 mg/dL, with negative respiratory viral PCRs (SARS-CoV-2, influenza A/B). A venous blood gas (VBG) reveals pH 7.49, pCO2 32.8 mmHg, and O2 saturation 98% post-treatment. Troponin I remains <0.01 ng/mL. Chest X-ray demonstrates pulmonary hyperinflation and chronic interstitial opacities, suspicious for COPD, with no acute disease. The patient was initially planned for discharge but failed a walking test, reportedly desaturating to the mid-to-low 80s (unconfirmed), prompting admission. Additional history includes He is well-known to our facility. Admission is warranted for management of COPD exacerbation and monitoring of exertional hypoxia, given lack of home oxygen and recent cardiac history. Hospital Course Hospital Course Hospital Course: Terence Tolbert is a 64-year-old male with extensive smoking history and previous TBI at the age of 17. Presented with shortness of breath. Dyspnea has been persistent for several weeks. Was recently admitted with the flu earlier last month. Was stable on room air but when he got up to walk had desaturation into the mid 80s. Medicine was consulted for admission overnight for COPD e xacerbation. Weaned to room air by morning. Tolerating inhalers. Safe to discharge home with close follow-up as an outpatient. Did not keep follow-up with cardiology or PCP after last discharge. Strongly encouraged to keep appointments to manage symptoms in the outpatient setting and prevent readmission. Patient states understanding. Problems addressed as follows: # COPD exacerbation -Recently admitted for flu. Appears to have resolution of flu symptoms. Afebrile. Room air saturation in the mid 90s on morning of discharge. Will initiate Trelegy 100 inhaler, discharged home with inhaler. Initiate Combivent for rescue inhaler. Strongly encourage patient to stop smoking. Given brisk symptoms, negative chest imaging, no antibiotics or steroids initiated. Strongly encouraged to follow-up with PCP as an outpatient for further management. #CAD/coronary artery calcification # Hypertension ?Last admission had type II NSTEMI with elevation of troponins. Was positive for flu at that time. Cardiology evaluated, EF showed 50 to 55% on echo. Initiated on goal-directed therapy with aspirin 81 mg daily, Plavix 75 mg daily, and Lipitor 40 mg daily, along with metoprolol succinate 25 mg daily. Patient was scheduled for follow-up, did not keep his appointment. Needs close follow- up with cardiology for ischemic eval as an outpatient now that his flu is resolving. Repeat appointment made. Strongly encouraged to keep this appointment. #Tobacco Dependence and marijuana: - Ongoing, contributes to COPD severity. Counseled on need for cessation. #Benzodiazepine Abuse and Anxiety: - Historical, possible hypoventilation on VBG (pCO2 32.8). No withdrawal symptoms during admission. #Traumatic Brain Injury (TBI): - Historical, no acute neurologic symptoms. At baseline level of function. Exam Data for Last 24 hours Vital signs and Labs for Last 24 Hours: Temp Pulse Resp BP Pulse Ox O2 Del Method O2 Flow Rate 98.5 F 85 20 103/60 L 96 Nasal Cannula 2 11/29/24 07:50 11/29/24 07:50 11/29/24 07:50 11/29/24 07:50 11/29/24 07:50 11/29/24 07:50 11/29/24 07:50 Laboratory Results - last 24 hr 11/28/24 11:32: SARS-CoV-2 (PCR) Not detected, Influenza A Untype (PCR) Not detected, Influenza Type B (PCR) Not detected 11/28/24 17:07: WBC 8.5, RBC 4.19 L, Hgb 12.5 L, Hct 37.9 L, MCV 90.5, MCH 29.8, MCHC 33.0, RDW 12.5, Plt Count 384, MPV 9.9, Neut % (Auto) 79.9, Lymph % (Auto) 13.6, [place] % (Auto) 5.3, Eos % (Auto) 0.5, Baso % (Auto) 0.2, Neut # (Auto) 6.8, Lymph # (Auto) 1.2, [place] # (Auto) 0.5, Eos # (Auto) 0.0, Baso # (Auto) 0.0, Sodium 132 L, Potassium 4.8, Chloride 100, Carbon Dioxide 26, Anion Gap 10.8, BUN 30 H, Creatinine 1.10, Estimated Creat Clear 53, Estimated GFR 67, Est GFR ( Amer) 82, Glucose 112 H, Calcium 8.8, Total Bilirubin 1.3, AST 67 H, ALT 30, Alkaline Phosphatase 48, Troponin I < 0.01, Total Protein 7.3, Albumin 4.2, Globulin 3.1, Albumin/Globulin Ratio 1.4, HCV Ab OZ w/Rflx PCR Qn Negative, HIV Ag/Ab Combo Qual Negative 11/28/24 17:12: VBG pH 7.49 H, VBG pCO2 32.8 L, VBG pO2 107.1 H, VBG HCO3 24.4, VBG Total CO2 25.4, VBG O2 Saturation 98.0 H, VBG Base Excess 1.0, VBG Lactic Acid 1.3 11/28/24 19:59: Troponin I < 0.01 11/28/24 23:50: Troponin I < 0.01 11/29/24 05:40: WBC 7.8, RBC 3.72 L, Hgb 11.0 L D, Hct 33.6 L, MCV 90.3, MCH 29.6, MCHC 32.7, RDW 12.7, Plt Count 389, MPV 10.4, Neut % (Auto) 78.7, Lymph % (Auto) 13.8, [place] % (Auto) 6.7, Eos % (Auto) 0.1, Baso % (Auto) 0.1, Neut # (Auto) 6.1, Lymph # (Auto) 1.1, [place] # (Auto) 0.5, Eos # (Auto) 0.0, Baso # (A uto) 0.0, Sodium 132 L, Potassium 4.5, Chloride 99, Carbon Dioxide 29, Anion Gap 8.5, BUN 30 H, Creatinine 1.10, Estimated Creat Clear 49, Estimated GFR 67, Est GFR ( Amer) 82, Glucose 126 H, Calcium 9.0 I & O for Last 24 hours: Intake & Output 11/26/24 11/27/24 11/29/24 11/29/24 23:59 23:59 00:59 23:59 Intake Total 600 / 600 Output Total 0 / 0 Balance 600 / 600 Weight 51.437 kg 51.437 kg Constitutional Constitutional: no acute distress, thin, chronically ill appearing and cooperative *Routine HEENT Exam Head: Present normocephalic Eye: Present EOMI and PERRL ENT: Present mucous membranes moist *Routine Neck Exam Neck: Present supple; Absent lymphadenopathy *Routine Respiratory Exam Respiratory: Present prolonged expiratory phase and normal respiratory effort; A bsent rhonchi, wheezes or crackles *Routine Cardiovascular Exam Cardiovascular: Present RRR *Routine Abdominal Exam Abdominal: Present soft and normoactive bowel sounds; Absent tenderness *Routine Rectal Exam Patient deferred: visual exam *Routine Exam Patient deferred: penile exam *Routine Extremities Exam Extremities: Absent cyanosis, clubbing or edema *Routine Skin Exam Skin: Present warm; Absent rash *Routine Neurological Exam Neurological: Present alert, oriented X3 and moving all extremities; Absent altered mental status Routine Psychiatric Exam Psychiatric: Present anxious Results Data Completed and Pending Labs on day of discharge: Labs from last 24 hours 11/29/24 11/28/24 11/28/24 05:40 23:50 19:59 WBC 7.8 RBC 3.72 L Hgb 11.0 L D Hct 33.6 L MCV 90.3 MCH 29.6 MCHC 32.7 RDW 12.7 Plt Count 389 MPV 10.4 Neut % (Auto) 78.7 Lymph % (Auto) 13.8 [place] % (Auto) 6.7 Eos % (Auto) 0.1 Baso % (Auto) 0.1 Neut # (Auto) 6.1 Lymph # (Auto) 1.1 [place] # (Auto) 0.5 Eos # (Auto) 0.0 Baso # (Auto) 0.0 VBG pH VBG pCO2 VBG pO2 VBG HCO3 VBG Total CO2 VBG O2 Saturation VBG Base Excess VBG Lactic Acid Sodium 132 L Potassium 4.5 Chloride 99 Carbon Dioxide 29 Anion Gap 8.5 BUN 30 H Creatinine 1.10 Estimated Creat Clear 49 Estimated GFR 67 Est GFR ( Amer) 82 Glucose 126 H Calcium 9.0 Total Bilirubin AST ALT Alkaline Phosphatase Troponin I < 0.01 < 0.01 Total Protein Albumin Globulin Albumin/Globulin Ratio SARS-CoV-2 (PCR) HCV Ab OZ w/Rflx PCR Qn HIV Ag/Ab Combo Qual Influenza A Untype (PCR) Influenza Type B (PCR) 11/28/24 11/28/24 11/28/24 17:12 17:07 11:32 WBC 8.5 RBC 4.19 L Hgb 12.5 L Hct 37.9 L MCV 90.5 MCH 29.8 MCHC 33.0 RDW 12.5 Plt Count 384 MPV 9.9 Neut % (Auto) 79.9 Lymph % (Auto) 13.6 [place] % (Auto) 5.3 Eos % (Auto) 0.5 Baso % (Auto) 0.2 Neut # (Auto) 6.8 Lymph # (Auto) 1.2 [place] # (Auto) 0.5 Eos # (Auto) 0.0 Baso # (Auto) 0.0 VBG pH 7.49 H VBG pCO2 32.8 L VBG pO2 107.1 H VBG HCO3 24.4 VBG Total CO2 25.4 VBG O2 Saturation 98.0 H VBG Base Excess 1.0 VBG Lactic Acid 1.3 Sodium 132 L Potassium 4.8 Chloride 100 Carbon Dioxide 26 Anion Gap 10.8 BUN 30 H Creatinine 1.10 Estimated Creat Clear 53 Estimated GFR 67 Est GFR ( Amer) 82 Glucose 112 H Calcium 8.8 Total Bilirubin 1.3 AST 67 H ALT 30 Alkaline Phosphatase 48 Troponin I < 0.01 Total Protein 7.3 Albumin 4.2 Globulin 3.1 Albumin/Globulin Ratio 1.4 SARS-CoV-2 (PCR) Not detected HCV Ab OZ w/Rflx PCR Qn Negative HIV Ag/Ab Combo Qual Negative Influenza A Untype (PCR) Not detected Influenza Type B (PCR) Not detected DS: Diagnosis Discharge Diagnosis (1) Exacerbation of reactive airway disease: Status: Acute Code(s): J45.901 - Unspecified asthma with (acute) exacerbation (2) Benzodiazepine abuse: Status: Acute Code(s): F13.10 - Sedative, hypnotic or anxiolytic abuse, uncomplicated (3) DORIAN (acute kidney injury): Status: Acute Code(s): N17.9 - Acute kidney failure, unspecified (4) Anxiety: Status: Acute Code(s): F41.9 - Anxiety disorder, unspecified (5) COPD (chronic obstructive pulmonary disease): Status: Acute Code(s): J44.9 - Chronic obstructive pulmonary disease, unspecified Qualifiers: COPD type: emphysema Emphysema type: unspecified Qualified Code(s): J43.9 - Emphysema, unspecified (6) Hypertension: Status: Acute Code(s): I10 - Essential (primary) hypertension Qualifiers: Hypertension type: unspecified Qualified Code(s): I10 - Essential (primary) hypertension (7) Dyspnea on exertion: Status: Acute Code(s): R06.09 - Other forms of dyspnea Meds Home Medications and Allergies Home Medications ?Medication ?Instructions ?Recorded ?Confirmed ?Type aspirin 81 mg tablet,delayed 81 mg PO DAILY 30 days #30 tabs 11/16/24 11/28/24 Rx release atorvastatin 40 mg tablet 40 mg PO HS 30 days #30 tabs 11/16/24 11/28/24 Rx clopidogrel 75 mg tablet 75 mg PO DAILY 30 days #30 tabs 11/16/24 11/28/24 Rx metoprolol succinate 25 mg 25 mg PO DAILY 30 days #30 tabs 11/16/24 11/28/24 Rx tablet,extended release 24 hr fluticasone fur. 100 mcg-umeclid 1 inh inhalation DAILY 30 days #60 11/29/24 Rx 62.5 mcg-vilant 25 mcg ea inhalat.powder (Trelegy Ellipta) ipratropium 20 mcg-albuterol 100 1 puff inhalation Q6RT 30 days #4 11/29/24 Rx mcg/actuation mist for inhalation grams (Combivent Respimat) New Prescriptions to Start Prescriptions: [id number] [Trelegy Ellipta] Ramirez Johnson ipratropium-albuterol [Combivent Respimat] Ramirez Johnson Allergies Allergy/AdvReac Type Severity Reaction Status Date / Time No Known Allergies Allergy Verified 04/28/24 13:40 Discharge Plan Disposition Patient Disposition: Home, Self-Care Condition: Good Follow up Plan Follow up with: Luiz Prather MD [Referring] - 12/30/24 9:00 am Trevor Elizalde PA [Physician Informatics Scientist] - 12/08/24 2:15 pm Prescriptions/Medication Reconciliation: New Combivent Respimat 20-100 mcg/actuation Mist 1 puff inhalation Q6RT 30 Days Qty: 4 0RF Trelegy Ellipta 100-62.5-25 mcg Blister With Device 1 inh inhalation DAILY 30 Days Qty: 60 0RF Continued atorvastatin 40 mg Tablet 40 mg PO HS 30 Days Qty: 30 0RF clopidogrel 75 mg Tablet 75 mg PO DAILY 30 Days Qty: 30 0RF aspirin 81 mg Tablet,Delayed Release (Dr/Ec) 81 mg PO DAILY 30 Days Qty: 30 0RF metoprolol succinate 25 mg Tablet Extended Release 24 Hr 25 mg PO DAILY 30 Days Qty: 30 0RF Problem Reconciliation Problems Reviewed?: Yes Patient Discharge Instructions ACTIVITY: Continue current activity DIET: continue same diet Patient Instructions: DI for Shortness of Breath Print Language: Azeri Providers Primary Care Provider: Provider,Referral Admit Provider: Ramirez Johnson Attending Provider: Ramirez Johnson
[2024-11-29] MEDS: CLOPIDOGREL 75MG TAB 75 MG PO (08:42)
[2024-11-29] MEDS: METHYLPREDNISOLONE SOD SUCC 40MG VIAL 40 MG IV (08:43)
[2024-11-29] MEDS: METOPROLOL SUCCINATE XL 25MG TABLET 25 MG PO (08:43)
[2024-11-29] MEDS: ASPIRIN EC 81MG TABLET 81 MG PO (08:43)
[2024-11-29 09:51] VITALS: O2SAT 96
[2024-11-29] MEDS: FLUTICASONE/UMECLIDIN/VILANTER 100/62.5/25MCG INHALER 1 PUFF IH (11:30)
[2024-11-29] MEDS: COMBIVENT 20MCG/100MCG RESPIMAT INHALER 1 PUFF IH (11:30)
--- NOTE | 2024-11-30 10:04 | SW/DCPLANNER ---
Spoke with Patient on the phone. Patient stated that he is doing well this morning. Patient stated that he is aware of his upcoming appointments. Patient stated that he was able to knot picker cloth his new medicine from clinic pharmacy. Patient stated that he has no concerns or questions at this time. Jaden Jain
== END 2024-11-29 11:59 | disposition home or self-care (01) ==
LOC: ER 21:09 → 2ND 21:20
PROVIDERS: Nurse Practitioner Family; Admitting Provider Internal Medicine Adolescent Medicine; Emergency Provider Emergency Medicine; Visit Provider Internal Medicine Adolescent Medicine
DX: J96.00 Acute respiratory failure, unspecified whether with hypoxia or hypercapnia (principal); J45.901 Unspecified asthma with (acute) exacerbation; F13.10 Sedative, hypnotic or anxiolytic abuse, uncomplicated; N17.9 Acute kidney failure, unspecified; F41.9 Anxiety disorder, unspecified; J43.9 Emphysema, unspecified; I10 Essential (primary) hypertension; R06.09 Other forms of dyspnea; F17.210 Nicotine dependence, cigarettes, uncomplicated; Z79.899 Other long term (current) drug therapy; I21.4 Non-ST elevation (NSTEMI) myocardial infarction; Z79.51 Long term (current) use of inhaled steroids; Z82.49 Family history of ischemic heart disease and other diseases of the circulatory system; Z87.820 Personal history of traumatic brain injury
CPT/HCPCS: 36415; 71045; 80048; 80053; 82803; 84484; 85025; 86803; 87389; 87636; 93005; 94640; 99285; G0378; J2919; J7620

== ENCOUNTER 2024-12-17 08:33 | Day surgery (SDC) | payer MEDICARE, SELFPAY ==
[2024-12-17] VITALS (10 sets, daily range): BP systolic 80–178; BP diastolic 45–108; PULSE 70–103; RESP 18–20; O2SAT 91–100; BMI 19.5
--- NOTE | 2024-12-17 07:18 | IR_ITS ---
APPROVED REPORT Patient Location: Outpatient PROCEDURES Left heart catheterization Left ventriculogram Selective coronary angiogram INDICATION Recent non-STEMI, Known coronary artery disease, Angina pectoris Informed consent was obtained prior to the procedure. COMPLICATIONS NONE Estimated Blood Loss: LESS THAN 10 ML TECHNIQUE One percent lidocaine used to anesthetize the right anterior aspect of the wrist. The right radial artery was accessed via the Seldinger technique. A 6 Micron[place] sheath was placed in the right radial artery. 2.5 mg of Verapamil, 800 mcg of nitroglycerin, 1mg Lidocaine and 5000 U Heparin were given through the arterial sheath. The papa catheter was also used to perform left heart catheterization, left ventriculogram and selective coronary angiogram. At the end of the procedure the sheath was removed good hemostasis was achieved using Traclet band, patient was transferred to the postop holding area in stable condition. ANGIOGRAPHIC RESULTS The left main artery Normal The left anterior descending artery Has proximal and 20 and 30% stenoses. The midportion is highly tortuous and has a mid vessel 50 to 60% stenosis along a tortuous corkscrew vessel. The LAD is large and wraps the apex The circumflex artery Is large and dominant and has 30% mid vessel stenoses. Large obtuse marginal arteries are widely patent. The right coronary artery Nondominant yet still large and proximally occluded. The distal vessel fills via [id number] collaterals The BRISCOE ventriculogram reveals Normal to slightly hyperdynamic at 65 to 70% The left ventricular end-diastolic pressure 10 mmHg IMPRESSION Chronically occluded right coronary artery which fills via large [id number] collaterals Moderate disease in the mid LAD along a tortuous corkscrew vessel which is best managed medically. Stenting this vessel was possible but is less than ideal as this would cause significant straightening of the artery which would create anatomical kink throughout the LAD. Hyperdynamic ventricle Normal LVEDP PLAN 1. Patient should tolerate medical management well. I would be hard pressed to stent the mid LAD. 2. Treatment of hyperdynamic ventricle 3. Aggressive risk factor modification 4. Avoidance of tobacco products 5. LDL less than 55 to achieve that high intensity statin Electronically signed by : Julian Apple MD 12/17/2024 14:24:08
[2024-12-17 09:00] LABS: Basophils % 0.4 % (0.1-2.0); Eosinophils # 0.2 K/mm3 (0.0-0.4); Eosinophils % 2.8 % (0.1-12.0); Hematocrit 31.9 % (42.0-52.0); Lymphocytes # 1.6 K/mm3 (0.7-4.5); Mean Corpuscular HGB Conc 31.3 g/dL (31.8-35.4); Mean Corpuscular Hemoglobin 30.6 pg (27.0-31.2); Mean Corpuscular Volume 97.6 fl (80-94); Mean Platelet Volume 9.8 fl (7.4-10.4); Monocytes # 0.8 K/mm3 (0.1-1.0); Monocytes % 10.2 % (1.7-9.3); Neutrophils # 4.7 K/mm3 (1.8-7.8); Neutrophils % 61.5 % (37.0-80.0); Platelet Count 267 K/mm3 (142-424); Red Blood Count 3.27 M/mm3 (4.60-6.20); Red Cell Distribution Width 14.8 % (11.5-17.5); White Blood Count 7.6 K/mm3 (4.8-10.8)
[2024-12-17 09:13] LABS: Chloride 99 mmol/L (98-107); Potassium 4.1 mmoL/L (3.5-5.1); Sodium 136 mmol/L (136-145)
[2024-12-17 09:16] LABS: Anion Gap 12.1 mEq/L (5-15); Blood Urea Nitrogen 25 mg/dl (9-20); Carbon Dioxide 29 mmol/L (22.0-30.0); Creatinine Clearance Estimated 54 mL/min (50-200); Estimated Glomerular Filt Rate 67 ml/min (>60); GFR (African American) 82 ML/MIN (>60)
[2024-12-17 09:17] LABS: Calcium 9.2 mg/dl (8.4-10.2); Glucose 90 mg/dl (74-100)
[2024-12-17] MEDS: HEPARIN 1,000 UNITS/ML 10ML VIAL (CATH LAB) 10000 UNIT IV (10:31)
[2024-12-17] MEDS: HEPARIN 1,000 UNITS/500ML NS (CATH LAB) 3000 UNIT IV (10:31)
[2024-12-17] MEDS: VERAPAMIL 2.5MG/ML 2ML VIAL 2.5 MG IV (10:31)
[2024-12-17] MEDS: LIDOCAINE 1% 10ML MDV 20 ML IJ (10:31)
[2024-12-17] MEDS: diphenhydrAMINE 50MG/ML VIAL 50 MG IV (10:32)
[2024-12-17] MEDS: 0.9 % SODIUM CHLORIDE 500 ML 25 ML IV (10:33)
[2024-12-17] MEDS: NITROGLYCERIN 800MCG/8ML SYR (CATH LAB) 800 MCG IA (10:33)
[2024-12-17] MEDS: MIDAZOLAM HCL 1MG/ML 5ML VIAL 1 MG IV (11:20)
[2024-12-17] MEDS: FENTANYL 100MCG/2ML VIAL 50 MCG IV (11:20)
[2024-12-17] MEDS: IOPAMIDOL-370 (76%);100ML BOTTLE 90 ML IV (11:44)
[2024-12-17] MEDS: PROPOFOL 10MG/ML 20ML VIAL 100 MG IV (12:00)
== END 2024-12-17 13:40 | disposition home or self-care (01) ==
PROVIDERS: Visit Provider Internal Medicine
DX: I25.118 Atherosclerotic heart disease of native coronary artery with other forms of angina pectoris (principal); F17.210 Nicotine dependence, cigarettes, uncomplicated; I25.2 Old myocardial infarction; Z79.899 Other long term (current) drug therapy; Z79.51 Long term (current) use of inhaled steroids; Z87.820 Personal history of traumatic brain injury; J44.9 Chronic obstructive pulmonary disease, unspecified; F41.9 Anxiety disorder, unspecified
CPT/HCPCS: 80048; 85025; 93458; 99152; C1725; C1769; J1200; J1644; J3010; Q9967